=== PATIENT | male | born 1960 | race Caucasian/White ===

== ENCOUNTER → 2021-06-24 13:18 | Outpatient (BNVA) | payer MEDICARE, MEDICAID, SELFPAY | PROVIDERS: Family Provider Family Medicine; PCP Family Medicine; Visit Provider Urology | DX: R31.9 Hematuria, unspecified (principal); C67.9 Malignant neoplasm of bladder, unspecified; Z20.822 Contact with and (suspected) exposure to COVID-19 | CPT/HCPCS: 81003; 87635 ==

== ENCOUNTER 2021-06-30 14:30 | Observation (INO) | payer MEDICARE, MEDICAID, SELFPAY ==
[2021-06-29 15:13] VITALS: BMI 19.9
[2021-06-30] VITALS (22 sets, daily range): BP systolic 111–158; BP diastolic 67–114; PULSE 83–110; RESP 12–24; TEMP 36.4–37; O2SAT 90–100; BMI 19.9
--- NOTE | 2021-06-30 11:42 | ANES.PREANE2 ---
Pre-Anesthetic Assessment Pre-Anesthetic Assessment: Height/Weight: Height 1.75 m Weight 61.235 kg Temp Pulse Resp BP Pulse Ox 98.4 F 102 H 18 128/93 93 06/30/21 11:34 06/30/21 11:34 06/30/21 11:34 06/30/21 11:34 06/30/21 11:34 Preop Diagnosis: Newly diagnosed bladder cancer Proposed Procedure: Operation Date: 06/30/21 12:00 Proposed Procedures p Transurethral Resection Bladder Tumor 95187 C67.9(Not Applicable) - Efra Curran MD s Cystoscopy(Not Applicable) - Efra Curran MD Was Beta Raymond taken within 24 hours: N/A Was Clonidine taken within 24 hours: N/A Last intake: Intake Last Liquid Date 06/30/21 Last Liquid Time 09:00 Last Solid Date 06/30/21 Last Solid Time 00:00 Social: Social History: No alcohol and No tobacco Exam: Pre-Anes Outpt Exam: alert Airway: Submandibular: WNL Cervical ROM: WNL MP: 1 Pulmonary: Pulmonary: None reported CV/HEM: CV/HEM: None reported : : None reported Hepatic: Hepatic: None reported GI: GI: None reported Metabolic: Metabolic: None reported Musc/skel: Musc/skel: None reported Neuropsych: Comments: Hx brain tumor Anesthetic Plan: ASA status: 2 Anesthesia: General Risk of > 500 ml blood loss (7ml/kg in children): No PFSH Anesthesia PFSH: Medical History Anxiety Bladder tumor Glioma of brain Hematuria History of brain tumor Seizure Surgical History History of hernia surgery History of removal of cyst Family History Father , AT AGE 82 , sudden, cause unknown Mother , IN LATE 70'S Stroke Social History Smoking and tobacco status: former smoker Alcohol intake: never Marital status: Current occupational status: disabled History of recent travel: No Data Anesthesia Cardiac Studies: No Data to Display
[2021-06-30] MEDS: sodium chloride 0.9% 1,000 ML 30 ML IV ×2 (11:56→15:37)
--- NOTE | 2021-06-30 12:00 | P.HPUD_ITS ---
Surgery/Procedure H&P Update DATE OF PROCEDURE: June 30, 2021 DATE H&P PERFORMED: 06/23/21 H&P UPDATE INFORMATION: I have reviewed H&P completed within last 30 days, I have examined patient prior to procedure, No changes to prior documentation and H&P is in [facility] EMR on date indicated PREOP DIAGNOSIS: Newly diagnosed bladder cancer PLANNED PROCEDURE: Operation Date: 06/30/21 12:00 Proposed Procedures p Transurethral Resection Bladder Tumor 04643 C67.9(Not Applicable) - Efra Curran MD s Cystoscopy(Not Applicable) - Efra Curran MD
--- NOTE | 2021-06-30 12:04 | PM.OP ---
Operative Report Date of procedure: June 30, 2021 Pre-op Diagnosis: Newly diagnosed bladder cancer Post-op diagnosis: same Procedure Done: 1. Cystoscopy, transurethral section of bladder tumor large Pathology: bladder tumor resection specimens Surgeon: Magdy Anesthesia: General Estimated blood loss: <50 cc Urine output: Not measured Complications: None Findings: Large volume papillary. No identified sessile wide-based solid lesions. All tumor resected Condition: stable Disposition: PACU Brief History: Mr. Cruz is a very pleasant 60-year-old white male who I evaluated for the first time in my office on 06/23/2021 for reports of gross hematuria. A CT scan had been performed on 06/10/2021 that showed what appeared to be enhancing soft tissue densities within the bladder. Cystoscopy confirmed these to be papillary bladder lesions consistent with TCCA. Multiple areas were identified with the largest volume of the right lateral wall. Substantially >5 cm in total diameter. Admitted now for TURBT after detailed discussion of benefits risk potential complications alternatives perioperative limitations and expectations and long-term planning based on pathology report. Procedure: After routine preoperative 06/30/2021 where general anesthesia was administered without difficulty after appropriate timeout was performed, SCDs confirmed to be functioning, preoperative antibiotics administered, beta-kiki protocol confirmed. Prepped and draped in usual sterile fashion in dorsolithotomy position paying careful attention to avoiding pressure points. 21 Mosotho cystoscope with 30 degree lens was introduced into the urethra meatus and advanced into the bladder under videoscopy. The bladder was systematically examined with a 30 and 70 degree lenses. Urethra was then calibrated with [place] sounds and accommodated 30 Mosotho. 2% lidocaine jelly was instilled into the urethra and a well-lubricated 25 Mosotho continuous-flow resectoscope sheath with visual obturator in place was advanced into the bladder without difficulty. The gyrus bipolar system with super loop and button probe were utilized. Resection was begun on the right lateral wall after confirmation of adequate paralysis. Resection was conducted until all the tumor in that area was removed. Multiple other areas identified were resected. Did not involve ureteral orifices. Did not extend into the prostatic fossa. Button probe was utilized to obtain hemostasis and to fulgurate some of the more flat areas of suspicious mucosa. On final inspection all specimens were removed from the bladder via the Ellik evacuator and meticulous hemostasis was confirmed. Final, trigone and ureteral orifices was made. Hemostasis was good. No remaining chips in the bladder. Could not identify any residual tumor. Tolerated procedure well without complications and was awakened in the operating room and returned to the recovery room after placement of a 20 Mosotho three-way Larson catheter with 10 cc balloon. Low flow CBI with normal saline was initiated.
[2021-06-30] MEDS: levofloxacin-dextrose 5 % 500 MG/100 ML PREMIX 100 MG IV (12:06)
[2021-06-30] MEDS: lidocaine 2% Urojet 20 mL (12:33)
[2021-06-30 12:51] LABS: Basophils % 0.4 %; Eosinophils # 0.1 10^3/uL (0.0-0.8); Eosinophils % 0.7 %; Hematocrit 45.5 % (42.0-52.0); Hemoglobin 14.9 g/dL (11.7-16.6); Lymphocytes # 0.6 10^3/uL (0.8-4.8); Lymphocytes % 8.2 %; Mean Corpuscular HGB Conc 32.7 g/dL (30.0-36.0); Mean Corpuscular Hemoglobin 30.1 pg (28.0-34.0); Mean Corpuscular Volume 91.9 fl (80-94); Mean Platelet Volume 10.3 fL (7.4-10.4); Monocytes % 13.8 %; Neutrophils # 5.76 10^3/uL (1.8-7.7); Neutrophils % 76.6 %; Nucleated Red Blood Cells % 0 %; Platelet Count 240 10^3/cmm (130-400); Red Blood Count 4.95 10^6/uL (4.1-5.3); White Blood Count 7.5 10^3/uL (4.0-10.0)
[2021-06-30 13:25] LABS: Alanine Aminotransferase 10 U/L (0-41); Albumin Level 4.1 g/dL (3.5-5.2); Alkaline Phosphatase 113 IU/L (40-130); Anion Gap 13.9 (5-19); Aspartate Amino Transferase 11 U/L (0-40); Blood Urea Nitrogen 14 mg/dL (8-23); Calcium 9.3 mg/dL (8.5-10.5); Carbon Dioxide 30 mmol/L (22-29); Chloride 98 mmol/L (98-107); Glomerular Filtration Rate 169.6 mL/min (90-130); Glucose 85 mg/dL (65-115); Osmolality Calculated 286 mOsm/kg (285-295); Potassium 3.9 mmol/L (3.5-5.1); Sodium 138 mmol/L (136-145); Total Bilirubin 0.4 mg/dL (0.15-1.2); Total Protein 7.1 g/dL (6.6-8.7)
[2021-06-30 13:28] LABS: Creatinine Clr Calc Pharmacy 148.6978
[2021-06-30] MEDS: fentaNYL 50 mcg/mL INJ 2mL IVP (13:53)
[2021-06-30] MEDS: HYDROcodone-acetaminophen 5-325 mg Tablet 1 TAB PO (15:36)
[2021-06-30] MEDS: morphine 4 mg/mL SDV 1 mL 1 MG IVP (20:04)
[2021-06-30] MEDS: LORazepam 1 mg Tablet PO (20:04)
[2021-06-30] MEDS: levETIRAcetam 500 mg Tablet 1500 MG PO (21:26)
[2021-06-30] MEDS: carBAMazepine XR (12 HR) 200 mg Tablet PO (21:26)
[2021-07-01 01:27] VITALS: RESP 16
[2021-07-01] MEDS: morphine 4 mg/mL SDV 1 mL 1 MG IVP (01:27)
[2021-07-01 03:50] VITALS: BP 113/72; PULSE 100; RESP 16; TEMP 37.2; O2SAT 92
[2021-07-01 07:49] VITALS: BP 112/76; PULSE 94; RESP 18; TEMP 37.1; O2SAT 94
[2021-07-01] MEDS: carBAMazepine XR (12 HR) 200 mg Tablet PO (09:08)
[2021-07-01] MEDS: levETIRAcetam 500 mg Tablet 1500 MG PO (09:09)
--- NOTE | 2021-07-01 09:20 | PC.NURSE ---
Mytomycin drained and disposed of in black box. Educated pt on leg bag and night bag. All questions answered. No further needs at this time.
--- NOTE | 2021-07-01 09:41 | PC.CHAP ---
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 internship visit [] Patient/Family/Request visit [] Outpatient visit [] Follow-up visit [] Physician referral [] Code/Alert [x] Routine visit [] Staff referral [] Actively dying [] Patient sleeping [] Family support [] [] Out of room [] Palliative care [] [] Receiving care in room [] Pre-surgical visit [] Trauma [] Long length of stay [] ICU visit [] Other: Relational/Emotional Strength [x] Patient feels connected with others/family/visitors/staff [] Distress [] Loneliness/isolation [] Abandonment Spirituality of Patient [x] Person of Saige [x] Attends Jew of their Saige [x] Believes in Prayer [] Reads Bible or Mormon materials [] There are Spiritual issues to be addressed Stock Grader Interventions [x] Prayer [x] Active listening [x] Non-anxious presence [x] Spiritual/emotional support [] Crisis/trauma care [] Spiritual counseling [] Bereavement support [] Provided bereavement packet [] Provided Bible/devotional materials [] Provided toy/stuffed animal, coloring book to patient or family member [] Provided Communion [] Anointing/[place] [] Salvation [x] Completed spiritual assessment [] Other: Impact on Illness or Injury [] Angry [] Fearful [] Anxious [] Often cries [] Exhaustion [] Unable to work [] Unable to attend uatsdin [] Unable to walk/stand [] Unable to read [] Unable to drive [] Unable to eat/drink [] Unable to sleep [] Unable to be with family [] Patient intubated [] Other: Summary Time spent with patient 20 min
[2021-07-01 12:02] VITALS: BP 121/84; PULSE 98; RESP 16; TEMP 36.8; O2SAT 92
--- NOTE | 2021-07-01 12:49 | P.DS_ITS ---
Discharge Providers Date of Admission: 06/30/21 14:30 Date of Discharge: July 01, 2021 Attending Provider at Admission: Efra Curran MD Attending Provider at Discharge: Efra Curran MD Primary Care Provider: Nichole Alejandro MD Diagnoses at Discharge Discharge Diagnosis (1) Bladder cancer: Status: Acute Qualifiers: Bladder location: overlapping sites Qualified Code(s): C67.8 - Malignant neoplasm of overlapping sites of bladder (2) Anxiety: Status: Acute Reason for Visit Reason for Visit: Malignant neoplas of bladder Hospital Course Hospital Course Admitted on 06/30/2021 for TURBT of multiple areas positive for bladder cancer on outpatient cystoscopy. Procedure went well. He had multiple areas both lateral blackman, posterior floor, dome with bladder cancer lesions. Final path is pending at time of dictation. Larson catheter was left indwelling postop and he underwent MITOMYCIN INTRAVE SICAL INSTILLATION on postop day #1 uneventfully. Catheter was left indwelling and he was discharged after confirmation of no bleeding and good catheter function confirmed on postop day #1 afternoon. Plan was to remove the catheter on Sunday the Hopefully pathology will be available by that time or soon thereafter. Will need cystoscopy in the near future to assess adequacy of complete resec tion. Has a pretty good chance that there will be some residual tumor that just was not easily identifiable given the very large volume of tumor. Discharged in stable condition. Physical Exam Const: COMMON NORMALS: no acute distress, alert and well nourished GENERAL APPEARANCE: well kempt and well developed ORIENTATION/CONSCIOUSNESS: not confused HENMT: COMMON NORMALS: normocephalic and atraumatic HEAD & SCALP: normocephalic and atraumatic Eye: COMMON NORMALS: conjunctivae normal and no scleral icterus CONJUNCTIVA: Yes conjunctivae normal Neck/C-Spine: COMMON NORMALS: full ROM GENERAL: Yes normal visual inspection Resp: COMMON NORMALS: normal respiratory effort EFFORT & INSPECTION: No labored and No Actively coughing : OTHER: Normal exam. Urine is clear. Catheter in place. Minimal amount of blood around the catheter Neuro: SENSORIUM/ORIENTATION: Yes alert Psych: APPEARANCE: Yes grossly normal and Yes well kempt ATTITUDE: Yes calm and Yes engaged Skin: COMMON NORMALS: no rashes or lesions noted and no jaundice GENERAL SKIN EXAM: no rashes or lesions noted Urinary Catheter Management^: 3-way Urethral CBI: Cath Placed During This Visit: yes Reason for Continuing Indwelling Catheter: Accurate Measurement of Urinary Output in Critically Ill Patients Urinary Catheter Date of Insertion: 06/30/21 Urinary Catheter Time of Insertion: 13:25 Discharge Data Data Completed and Pending: Pending at discharge Category Date Time Status Pathology: Surgic al [PTH] Routine Pth 06/30/21 13:30 Received Labs from last 24 hours 06/30/21 06/30/21 11:45 11:45 WBC 7.5 RBC 4.95 Hgb 14.9 Hct 45.5 MCV 91.9 MCH 30.1 MCHC 32.7 RDW 14.0 Plt Count 240 MPV 10.3 Neut % (Auto) 76.6 Lymph % (Auto) 8.2 [place] % (Auto) 13.8 Eos % (Auto) 0.7 Baso % (Auto) 0.4 Neut # (Auto) 5.76 Lymph # (Auto) 0.6 L [place] # (Auto) 1.0 H Eos # (Auto) 0.1 Baso # (Auto) 0.0 Nucleated RBC % (a uto) 0 Nucleated RBCs # 0.0 Sodium 138 Potassium 3.9 Chloride 98 Carbon Dioxide 30 H Anion Gap 13.9 BUN 14 Creatinine 0.5 L GFR Calculation 169.6 H Glucose 85 Calculated Osmolal ity 286 Calcium 9.3 Total Bilirubin 0.4 AST 11 ALT 10 Alkaline Phosphata se 113 Total Protein 7.1 Albumin 4.1 Globulin 3.0 Vitals: Last Vital Signs Temp 98.3 F 07/01/21 12:02 Pulse 98 07/01/21 12:02 Resp 16 07/01/21 12:02 BP 121/84 07/01/21 12:02 Pulse Ox 92 07/01/21 12:02 Discharge Plan Discharge Patient Disposition: Home Condition: Stable Prescriptions: New hydrocodone-acetaminophen 5-325 mg Tablet 1 tab PO Q6H PRN (Reason: Moderate Pain) 3 Days Qty: 12 RF: 0 Continued levetiracetam [Keppra] 1,000 mg tablet 1,500 mg PO BID RF: 0 carbamazepine 200 mg tablet extended release 12 hr 200 mg PO BID RF: 0 lorazepam 1 mg tablet 1 mg PO BID PRN (Reason: Anxiety) RF: 0 Discharge Orders: Discharge Order (Routine); Ordered 07/01/21 Ordered By: Efra Curran Referrals: Efra Curran MD [Physician] - 07/04/21 7:30 am (You have an appointment with Dr. Curran on July 04 at 7:30 for a voiding trial.) Discharge Diet: Usual diet Discharge Activity: Limit activity as instructed Patient Instructions: Hydrocodone/Acetaminophen (By mouth) (Vicodin, Aulander, Lortab), Urinary Leg Bag (GEN), Transurethral Resection of Bladder Tumors (DC), Opioid Safety Activity Restrictions/Additional Instructions: Avoid lifting >10 pounds. We will plan on removing the catheter on Sunday in my office. Please do not pull the catheter out. There is a large balloon on the inside that would do damage if you forcibly removed it. Drink more fluids to keep the urine clear. Discharge Attestations Time Spent in Discharge Care*: less than 30 min Specific Discharge Activities: educating patient, documenting/other paperwork and evaluating patient/reviewing data Quality Metrics Clinical Quality Measures During this hospital stay, did patient experience: None Coding Level of Care Code Acute Chg FW DC note Exam Detailed Diagnoses Bladder cancer C67.8 Bladder location: overlapping sites Anxiety F41.9
[2021-07-01 15:10] VITALS: BP 121/84; PULSE 98; RESP 16; TEMP 36.8; O2SAT 92
== END 2021-07-01 14:20 | disposition home or self-care (01) ==
LOC: MEDSURG 14:31
PROVIDERS: Admitting Provider Urology; PCP Family Medicine; Visit Provider Urology
PROC: 0TBB8ZZ Excision of Bladder, Via Natural or Artificial Opening Endoscopic (ICD-10-PCS; CPT 52240; principal; 2021-06-30 12:00)
PROC: 0TJB8ZZ Inspection of Bladder, Via Natural or Artificial Opening Endoscopic (ICD-10-PCS; CPT 52000; 2021-06-30 12:00)
DX: C67.2 Malignant neoplasm of lateral wall of bladder (principal); C67.4 Malignant neoplasm of posterior wall of bladder; C67.1 Malignant neoplasm of dome of bladder; F41.9 Anxiety disorder, unspecified; Z87.891 Personal history of nicotine dependence
CPT/HCPCS: 52240; 51720; 80053; 85025; 88305; 88307; G0378; J1100; J1956; J2270; J2405; J2704; J2710; J3010; J3490; J7030; J9280

== ENCOUNTER → 2021-07-29 10:55 | Outpatient (BNVA) | payer MEDICARE, MEDICAID, SELFPAY | PROVIDERS: PCP Family Medicine; Visit Provider Urology | DX: C67.8 Malignant neoplasm of overlapping sites of bladder (principal); Z87.898 Personal history of other specified conditions; Z20.822 Contact with and (suspected) exposure to COVID-19 | CPT/HCPCS: 81003; 87635 ==

== ENCOUNTER 2021-08-04 18:57 | Observation (INO) | payer MEDICARE, MEDICAID, SELFPAY ==
[2021-08-03 13:26] VITALS: BMI 19.2
[2021-08-04] VITALS (8 sets, daily range): BP systolic 117–160; BP diastolic 90–114; PULSE 79–111; RESP 12–19; TEMP 36.3–37.1; O2SAT 92–99
--- NOTE | 2021-08-04 13:23 | ANES.PREANE2 ---
Pre-Anesthetic Assessment Pre-Anesthetic Assessment: Height/Weight: Height 1.75 m Weight 58.967 kg Temp Pulse Resp BP Pulse Ox 98 F 110 H 18 153/90 92 08/04/21 13:15 08/04/21 13:15 08/04/21 13:15 08/04/21 13:15 08/04/21 13:15 Preop Diagnosis: Bladder cancer Proposed Procedure: Operation Date: 08/04/21 14:15 Proposed Procedures p Transurethral Resection Bladder Tumor 38091 C67.9(Not Applicable) - Efra Curran MD s Cystoscopy(Not Applicable) - Efra Curran MD Was Beta Raymond taken within 24 hours: N/A Was Clonidine taken within 24 hours: N/A Last intake: Intake Last Liquid Date 08/04/21 Last Liquid Time 09:00 Last Solid Date 08/03/21 Last Solid Time 22:00 Social: Social History: No alcohol Exam: Pre-Anes Outpt Exam: alert and oriented x 3 Additional Exam Findings (including area of procedure): Markedly Diminished BS with prolonged/active exp phase Airway: Submandibular: WNL Cervical ROM: WNL MP: 1 Dentition: False Pulmonary: Pulmonary: COPD CV/HEM: CV/HEM: None reported : : None reported Hepatic: Hepatic: None reported GI: GI: None reported Metabolic: Metabolic: None reported Musc/skel: Musc/skel: Lower Back Pain and OA/DJD Neuropsych: Neuropsych: Seizure (None since 2012) Comments: History of benign brain tumor Anesthetic Plan: ASA status: 3 Anesthesia: General PFSH Anesthesia PFSH: Medical History Anxiety Bladder cancer Glioma of brain History of brain tumor Seizure Surgical History H/O transurethral destruction of bladder lesion History of hernia surgery History of removal of cyst Family History Father , AT AGE 82 , sudden, cause unknown Mother , IN LATE 70'S Stroke Social History Alcohol intake: never Marital status: Current occupational status: disabled History of recent travel: No Data Anesthesia Cardiac Studies: No Data to Display
[2021-08-04] MEDS: sodium chloride 0.9% 1,000 ML 30 ML IV (13:38)
[2021-08-04] MEDS: levofloxacin-dextrose 5 % 500 MG/100 ML PREMIX 100 MG IV (17:35)
--- NOTE | 2021-08-04 17:37 | P.HPUD_ITS ---
Surgery/Procedure H&P Update DATE OF PROCEDURE: August 04, 2021 DATE H&P PERFORMED: 07/28/21 H&P UPDATE INFORMATION: I have reviewed H&P completed within last 30 days, I have examined patient prior to procedure, No changes to prior documentation and H&P is in [facility] EMR on date indicated PREOP DIAGNOSIS: Bladder cancer PLANNED PROCEDURE: Operation Date: 08/04/21 14:15 Proposed Procedures p Transurethral Resection Bladder Tumor 57547 C67.9(Not Applicable) - Efra Curran MD s Cystoscopy(Not Applicable) - Efra Curran MD
[2021-08-04] MEDS: lidocaine 2% Urojet 20 mL TOPICAL (18:01)
--- NOTE | 2021-08-04 18:29 | P.OP_ITS ---
Operative Report Date of procedure: August 04, 2021 Pre-op Diagnosis: High-grade lamina propria invasive bladder cancer Post-op diagnosis: same Post-op Findings: A few small papillary tumors identified and resected/fulgurated. Deeper sampling taken at previous resection site. Procedure Done: 1. Cystoscopy, transurethral section of bladder tumor large (aggregate resection/vaporization >5 cm) Pathology: Sampling of multiple sites in the bladder. Deeper resections of previous TURBT sites. Surgeon: Magdy Anesthesia: General Estimated blood loss: Minimal Complications: None Findings: There were multiple areas of suspicious mucosa as described in the operative report. Areas of previous resection were more deeply resected into the bladder wall to confirm no evidence of residual disease penetrating into the bladder wall. Condition: stable Disposition: PACU Brief History: Mr. Cruz is a very pleasant 60-year-old white male recently diagnosed with bladder cancer. He had multiple areas involved in and underwent a large-volume TURBT. None of the tumors were significantly large protruding into the intravesical space but the coverage of the bladder wall was significant at >5 cm. There was also a couple areas near diverticuli that were suspicious. Because of the pathology demonstrating high-grade lamina propria invasive disease without clear evidence of muscle it was decided to restage him to c onfirm no under staging of the first resection. He is back now for that procedure. Procedure: After routine preoperative evaluation examination and obtaining of informed consent he was taken to the operating suite on 08/04/2021 where general anesthesia was administered without difficulty after appropriate timeout was performed, SCDs confirmed to be functioning, preoperative antibiotics administered, beta-kiki protocol confirmed. Prepped and draped in usual sterile fashion in dorsolithotomy position paying careful attention to avoiding pressure points. 21 Panamanian cystoscope with 30 degree lens was introduced into the urethral meatus and advanced into the bladder to videoscopy. The bladder was systematically examined. The previous resection site areas with sloughing of tissue were identified. There was a couple small papillary tumors near the left lateral wall bladder diverticulum. There was also some suspicious areas lateral to the left ureteral orifice. Super loop was utilized first after placement of the 25 [place] continuous-flow resectoscope sheath preceded by [place] sound calibration and intraluminal 2% lidocaine jelly instillation. [place] bipolar system was utilized. The areas of sloughing necrotic tissue on the right lateral wall were scraped bluntly with the super loop. This exposed the underlying tissue and multiple resections deep into the bladder wall were performed in this area. The button probe was then utilized to fulgurate this area and an area of approximately 5- 1/2 cm was involved in this fulguration and resection combined. Near one of the diverticuli on the lateral wall more proximally/dome located there was a small papillary tumor on the opening and this was resected as well and sent for pat hologic evaluation. The button probe was utilized to fulgurate the inside of the diverticulum. There was not clear as to whether or not there was a definitive TCCA lesion in the diverticulum but there was some areas that were suspicious. Just lateral to the left ureteral orifice was a suspicious area that was resected. A couple of other papillary lesions of less clarity were also resected on the left lateral bladder wall. The button probe was utilized to confirm adequate hemostasis. All chips were evacuated from the bladder with an Ellik evacuator. Hemostasis was visually confirmed and the bladder was then drained with a 20 [place]ian three-way Larson catheter. The efflux was clear and irrigation revealed no evidence of bleeding. Tolerated procedure well without complications and was awakened in the operating room and returned to the recovery room in stable condition. PLANS: 1. Maintain observation status overnight with anticipated discharge tomorrow with Larson catheter in place. 2. Mitomycin instillation tomorrow
[2021-08-04] MEDS: ondansetron 2 mg/ML SDV 2 mL 4 MG IVP (18:44)
[2021-08-04] MEDS: labetalol 5 mg/mL SDV 20mL IVP (18:45)
--- NOTE | 2021-08-04 19:02 | PC.NURSE ---
Ready to give report to the floor at 1853. Waited on hold for 10 min before hanging up to call again.
--- NOTE | 2021-08-04 19:56 | ANE.PACU2 ---
Inpatient post-anesthesia follow up: Airway intact: Yes Vital signs: Temperature 97.3 F Pulse Rate 79 Respiratory Rate 12 Blood Pressure 149/98 Pulse Oximetry 99 Oxygen Delivery Me thod Room Air Oxygen Flow Rate Fraction of Inspir ed Oxygen Hydration adequate: Yes Nausea and vomiting: No Pain level: 3 Mental status: Baseline
[2021-08-04] MEDS: carBAMazepine XR (12 HR) 200 mg Tablet PO (21:10)
[2021-08-04] MEDS: levETIRAcetam 500 mg Tablet 1500 MG PO (21:11)
[2021-08-04] MEDS: LORazepam 1 mg Tablet PO (21:11)
[2021-08-04] MEDS: dextrose 5%-ns + KCl 20 20 MEQ/1,000 ML BAG 75 MEQ IV (21:11)
[2021-08-05 02:41] VITALS: BP 109/74; PULSE 98; RESP 19; TEMP 36.7; O2SAT 92
[2021-08-05 04:00] VITALS: BP 115/74; PULSE 93; RESP 19; TEMP 36.7; O2SAT 90
--- NOTE | 2021-08-05 07:39 | PM.MISC ---
Miscellaneous Note Purpose of Documentation: MITOMYCIN INTRAVESICAL INSTILLATION Note: Postoperative day #1 TURBT. 40 mg of mitomycin and 40 cc normal saline instilled into the bladder under low pressure. His drainage port on his three-way Larson catheter. Irrigation Drainage port was plugged. Plan: 1. Drain mitomycin after 1 hour or sooner if becomes uncomfortable 2. 6 bottle void and bladder scan to confirm adequate emptying and no significant bleeding post catheter removal as well discharged today.
--- NOTE | 2021-08-05 07:45 | PM.DCS ---
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 Procedure went well. He had a few small residual tumors that were resected or fulgurated completely. There was some involvement of a right bladder wall diverticulum more toward the dome. Also had another diverticulum that was not involved more distally. Deep resection was performed in the area of previous bladder tumor larger volume. Aggregate >5 cm of multiple bladder tumors resected. Postoperatively he did well. Mitomycin was instilled into the bladder on postoperative day #1 and drained appropriately. Successful voiding trial with safe/adequate emptying after catheter removal post mitomycin drainage. Encouraged him to self cath at home if there is any question about emptying. He has done this before and was familiar and comfortable with it. Emphasis was placed on not allowing his bladder to become over distended. Plan was to follow-up in 1 month for initiation of BCG induction therapy, 6 weeks. Phone call recommended for 1 week to review the pathology report. Physical Exam Const: GENERAL APPEARANCE: well kempt Resp: COMMON NORMALS: normal respiratory effort EFFORT & INSPECTION: No labored and No Actively coughing GI: COMMON NORMALS: Soft to palpation and non-tender PALPATION: Yes Soft to palpation and No Tenderness to palpation present (GI) RECTAL EXAM: Yes visual inspection normal, Yes normal sphincter tone, Yes prostate normal, No prostate abnormal and No mass : PENIS: normal penis MEATUS: meatus normal, no meatla discharge and No Blood at meatus present SCROTUM: Yes testes descended bilaterally Psych: COMMON NORMALS: mental status grossly normal APPEARANCE: Yes grossly normal and Yes well kempt ATTITUDE: Yes calm and Yes engaged Urinary Catheter Management^: 3-way Urethral CBI: Cath Placed During This Visit: yes Urinary Catheter Date of Insertion: 08/04/21 Urinary Catheter Time of Insertion: 18:23 Discharge Data Data Completed and Pending: Pending at discharge Category Date Time Status Pathology: Surgic al [PTH] Routine Pth 08/04/21 18:41 Ordered Vitals: Last Vital Signs Temp 98.1 F 08/05/21 04:00 Pulse 93 08/05/21 04:00 Resp 19 H 08/05/21 04:00 BP 115/74 08/05/21 04:00 Pulse Ox 90 08/05/21 04:00 Discharge Plan Discharge Patient Disposition: Home Condition: Stable Prescriptions: Continued levetiracetam [Keppra] 1,000 mg tablet 1,500 mg PO BID RF: 0 carbamazepine 200 mg tablet extended release 12 hr 200 mg PO BID RF: 0 lorazepam 1 mg tablet 1 mg PO BID PRN (Reason: Anxiety) RF: 0 acetaminophen [Tylenol Extra Strength] 500 mg tablet 500 mg PO Q6H PRN (Reason: pain) RF: 0 Discharge Orders: Discharge Order (Routine); Ordered 08/05/21 Ordered By: Efra Curran Referrals: Efra Curran MD [Physician] - 09/09/21 10:30 am (BCG induction #1) Discharge Diet: Usual diet Discharge Activity: Limit activity as instructed Patient Instructions: Larson Catheter Care, Urinary Leg Bag (GEN), Transurethral Resection of Bladder Tumors (GEN), Opioid Safety Activity Restrictions/Additional Instructions: 1. Avoid lifting >10 pounds x 3 to 4 weeks. 2. We will plan on beginning BCG treatment in approximately 1 month assuming the pathology supports that. 3. We need to communicate over the phone in roughly 1 week about the pathology report to make final plans. 4. You can catheterize yourself at home if you have difficulty voiding. Please avoid over distention of the bladder. That can be very dangerous. Discharge Attestations Time Spent in Discharge Care*: greater than 30 min Specific Discharge Activities: educating patient, documenting/other paperwork and evaluating patient/reviewing data Quality Metrics Clinical Quality Measures During this hospital stay, did patient experience: None Coding Level of Care Code Acute Chg FW DC note Exam Detailed
[2021-08-05 08:12] VITALS: BP 129/86; PULSE 87; RESP 18; TEMP 36.9; O2SAT 91
--- NOTE | 2021-08-05 08:14 | PC.NURSE ---
Larson catheter discontinued at 0810 per orders with no complications. Beginning 6 void trial. Pt educated to call when he feels the urge to urinate.
[2021-08-05] MEDS: levETIRAcetam 500 mg Tablet 1500 MG PO (08:16)
[2021-08-05 11:51] VITALS: BP 120/83; PULSE 92; RESP 18; TEMP 36.7; O2SAT 92
[2021-08-05] MEDS: carBAMazepine XR (12 HR) 200 mg Tablet PO (13:48)
--- NOTE | 2021-08-05 14:28 | PC.CHAP ---
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 pollution control technician visit [] Patient/Family/Request visit [] Outpatient visit [] Follow-up visit [] Physician referral [] Code/Alert [xx] Routine visit [] Staff referral [] Actively dying [] Patient sleeping [] Family support [] [] Out of room [] Palliative care [] [] Receiving care in room [] Pre-surgical visit [] Trauma [] Long length of stay [] ICU visit [] Other: Relational/Emotional Strength [xx] Patient feels connected with others/family/visitors/staff [] Distress [] Loneliness/isolation [] Abandonment Spirituality of Patient [] Person of Saige [] Attends Quaker of their Saige [xx] Believes in Prayer [xx] Reads Bible or Congregation materials [] There are Spiritual issues to be addressed Fast Food Shift Lead Interventions [xx] Prayer [xx] Active listening [xx] Non-anxious presence [] Spiritual/emotional support [] Crisis/trauma care [] Spiritual counseling [] Bereavement support [] Provided bereavement packet [] Provided Bible/devotional materials [] Provided toy/stuffed animal, coloring book to patient or family member [] Provided Communion [] Anointing/[place] [] Salvation [xx] Completed spiritual assessment [] Other: Impact on Illness or Injury [] Angry [] Fearful [] Anxious [] Often cries [] Exhaustion [] Unable to work [] Unable to attend scientology [] Unable to walk/stand [] Unable to read [] Unable to drive [] Unable to eat/drink [] Unable to sleep [] Unable to be with family [] Patient intubated [] Other: Summary Patient stated he has numerous cancerous spots in h is body he is dealing with but he is very positive and joyful that he is still alive and able to function properly. He has a of nearly 40 years, children and a 10 month old grandson to live for and his saige keeps him going. He had much to say about his family and how much they all love and support each other. Time spent with patient 10 minutes
--- NOTE | 2021-08-05 15:31 | PC.NURSE ---
Dr. Curran notified on patients results on 6 void trial. Orders received to DC patient but instruct to not wait until being unable to void becomes uncomfortable- to self catheterize.
[2021-08-05 15:46] VITALS: BP 127/86; PULSE 118; RESP 18; TEMP 36.8; O2SAT 91
[2021-08-05] MEDS: LORazepam 1 mg Tablet PO (16:14)
== END 2021-08-05 19:00 | disposition home or self-care (01) ==
LOC: MEDSURG 08-05 07:45
PROVIDERS: Admitting Provider Urology; PCP Family Medicine; Visit Provider Urology
PROC: 0TBB8ZZ Excision of Bladder, Via Natural or Artificial Opening Endoscopic (ICD-10-PCS; CPT 52240; principal; 2021-08-04 14:05)
PROC: 0TJB8ZZ Inspection of Bladder, Via Natural or Artificial Opening Endoscopic (ICD-10-PCS; CPT 52000; 2021-08-04 14:05)
DX: C67.9 Malignant neoplasm of bladder, unspecified (principal); J44.9 Chronic obstructive pulmonary disease, unspecified; F41.9 Anxiety disorder, unspecified; Z87.898 Personal history of other specified conditions
CPT/HCPCS: 52240; 51720; 88309; G0378; J1956; J2405; J2704; J2710; J3010; J3490; J7030

== ENCOUNTER → 2021-09-07 15:30 | Outpatient (BNVA) | payer MEDICARE, MEDICAID, SELFPAY | PROVIDERS: PCP Family Medicine; Visit Provider Urology | DX: C67.8 Malignant neoplasm of overlapping sites of bladder (principal) | CPT/HCPCS: 81003 ==

== ENCOUNTER → 2021-09-16 10:37 | Outpatient (BNVA) | payer MEDICARE, MEDICAID, SELFPAY | PROVIDERS: PCP Family Medicine; Visit Provider Urology | DX: C67.8 Malignant neoplasm of overlapping sites of bladder (principal) | CPT/HCPCS: 81003 ==

== ENCOUNTER → 2021-09-23 10:55 | Outpatient (BNVA) | payer MEDICARE, MEDICAID, SELFPAY | PROVIDERS: PCP Family Medicine; Visit Provider Urology | DX: C67.9 Malignant neoplasm of bladder, unspecified (principal) | CPT/HCPCS: 81003 ==

== ENCOUNTER → 2021-10-06 15:40 | Outpatient (BNVA) | payer MEDICARE, MEDICAID, SELFPAY | PROVIDERS: PCP Family Medicine; Visit Provider Urology | DX: C67.9 Malignant neoplasm of bladder, unspecified (principal) | CPT/HCPCS: 81003 ==

== ENCOUNTER → 2021-10-27 15:43 | Outpatient (BNVA) | payer MEDICARE, MEDICAID, SELFPAY | PROVIDERS: PCP Family Medicine; Visit Provider Urology | DX: C67.9 Malignant neoplasm of bladder, unspecified (principal) | CPT/HCPCS: 81003 ==

== ENCOUNTER → 2021-11-03 15:26 | Outpatient (BNVA) | payer MEDICARE, MEDICAID, SELFPAY | PROVIDERS: PCP Family Medicine; Visit Provider Urology | DX: C67.9 Malignant neoplasm of bladder, unspecified (principal); N99.112 Postprocedural membranous urethral stricture, male; C67.8 Malignant neoplasm of overlapping sites of bladder | CPT/HCPCS: 81003 ==

== ENCOUNTER → 2021-12-16 08:20 | Outpatient (BNVA) | payer MEDICARE, MEDICAID, SELFPAY | PROVIDERS: PCP Family Medicine; Visit Provider Urology | DX: C67.8 Malignant neoplasm of overlapping sites of bladder (principal) | CPT/HCPCS: 81003 ==

== ENCOUNTER → 2022-02-02 15:21 | Outpatient (BNVA) | payer MEDICARE, MEDICAID, SELFPAY | PROVIDERS: PCP Family Medicine; Visit Provider Nurse Practitioner Family | DX: C67.9 Malignant neoplasm of bladder, unspecified (principal); C67.8 Malignant neoplasm of overlapping sites of bladder | CPT/HCPCS: 51720; 81003; J9030 ==

== ENCOUNTER → 2022-02-09 15:34 | Outpatient (BNVA) | payer MEDICARE, MEDICAID, SELFPAY | PROVIDERS: PCP Family Medicine; Visit Provider Urology | DX: C67.8 Malignant neoplasm of overlapping sites of bladder (principal) | CPT/HCPCS: 51720; 81003; J9030 ==

== ENCOUNTER → 2022-02-16 15:47 | Outpatient (BNVA) | payer MEDICARE, MEDICAID, SELFPAY | PROVIDERS: PCP Family Medicine; Visit Provider Urology | DX: C67.8 Malignant neoplasm of overlapping sites of bladder (principal) | CPT/HCPCS: 51720; 81003; J9030 ==

== ENCOUNTER → 2022-02-21 11:33 | Outpatient (BNVA) | payer MEDICARE, MEDICAID, SELFPAY | PROVIDERS: PCP Family Medicine; Visit Provider Nurse Practitioner Family | DX: N64.4 Mastodynia (principal); Z13.6 Encounter for screening for cardiovascular disorders; F41.9 Anxiety disorder, unspecified | CPT/HCPCS: 80053; 80061; 84443; 85025 ==

== ENCOUNTER 2022-03-16 12:07 | Outpatient (CLI) | payer MEDICARE, MEDICAID, SELFPAY ==
--- NOTE | 2022-03-16 12:22 | MM_ITS ---
WS: [id number] DIAGNOSTIC BILATERAL DIGITAL BREAST TOMOSYNTHESIS MAMMOGRAPHY WITH CAD HISTORY: MASTODYNIA, pain and discomfort upper outer quadrant LEFT breast. No pain associated to the nipples. COMPARISON: None available. TECHNIQUE: Bilateral craniocaudad, mediolateral oblique, and mediolateral views are submitted with to moslilia and CHRIS. Computer aided detection utilized. Breast composition: Subareolar areas of increased density consistent with gynecomastia. Pain does not localize to the gynecomastia. Marker is placed in the upper outer quadrant of the LEFT breast toward s the axillary tail. There is no underlying mass. No distortion. No skin thickening. LEFT breast ultrasound, limited. Ultrasound along the 12-3 o'clock axis demonstrates no abnormality. Normal appearance to the soft tis sues. No skin thickening. MM/[place] [id number] IMPRESSION: BI-RADS: 2-Benign FOLLOW UP: See Report No mammographic or ultrasound abnormality to correspond to the pain in the uppe r outer quadrant of the LEFT breast.
== END 2022-03-16 12:08 | disposition home or self-care (01) ==
LOC: RAD 12:09
PROVIDERS: PCP Family Medicine; Visit Provider Nurse Practitioner Family
DX: N64.4 Mastodynia (principal)
CPT/HCPCS: 76642; 77062

== ENCOUNTER → 2022-04-03 14:46 | Outpatient (BNVA) | payer MEDICARE, MEDICAID, SELFPAY | PROVIDERS: PCP Family Medicine; Visit Provider Urology | DX: C67.8 Malignant neoplasm of overlapping sites of bladder (principal) | CPT/HCPCS: 52000; 81003 ==

== ENCOUNTER → 2022-07-06 14:25 | Outpatient (BNVA) | payer MEDICARE, MEDICAID, SELFPAY | PROVIDERS: PCP Family Medicine; Visit Provider Urology | DX: C67.8 Malignant neoplasm of overlapping sites of bladder (principal) | CPT/HCPCS: 52000; 81003 ==

== ENCOUNTER → 2022-10-05 13:03 | Outpatient (BNVA) | payer MEDICARE, MEDICAID, SELFPAY | PROVIDERS: PCP Family Medicine; Visit Provider Urology | DX: C67.8 Malignant neoplasm of overlapping sites of bladder (principal) | CPT/HCPCS: 52000; 81003; 88112 ==

== ENCOUNTER → 2022-10-13 10:15 | Outpatient (BNVA) | payer MEDICARE, MEDICAID, SELFPAY | PROVIDERS: PCP Family Medicine; Visit Provider Family Medicine | DX: C67.8 Malignant neoplasm of overlapping sites of bladder (principal); R63.4 Abnormal weight loss; F41.9 Anxiety disorder, unspecified; R73.9 Hyperglycemia, unspecified; C67.9 Malignant neoplasm of bladder, unspecified | CPT/HCPCS: 80053; 82607; 83036; 84443; 85025 ==

== ENCOUNTER → 2023-02-13 11:37 | Outpatient (BNVA) | payer MEDICARE, MEDICAID, SELFPAY | PROVIDERS: PCP Family Medicine; Visit Provider Urology | DX: C67.9 Malignant neoplasm of bladder, unspecified (principal) | CPT/HCPCS: 52000; 81003 ==

== ENCOUNTER → 2023-06-06 08:30 | Outpatient (BNVA) | payer MEDICARE, MEDICAID, SELFPAY | PROVIDERS: PCP Family Medicine; Visit Provider Urology | DX: D44.10 Neoplasm of uncertain behavior of unspecified adrenal gland (principal); C67.9 Malignant neoplasm of bladder, unspecified | CPT/HCPCS: 82533; 83835 ==

== ENCOUNTER → 2023-08-16 10:05 | Outpatient (BNVA) | payer MEDICARE, MEDICAID, SELFPAY | PROVIDERS: PCP Family Medicine; Referring Provider Family Medicine; Visit Provider Internal Medicine Pulmonary Disease | DX: J44.9 Chronic obstructive pulmonary disease, unspecified (principal); Z87.891 Personal history of nicotine dependence; Z78.9 Other specified health status; Z12.2 Encounter for screening for malignant neoplasm of respiratory organs | CPT/HCPCS: 99204 ==

== ENCOUNTER 2023-09-05 07:54 | Outpatient (CLI) | payer MEDICARE, MEDICAID, SELFPAY ==
--- NOTE | 2023-09-05 08:03 | CT_ITS ---
WS: [id number] LDCT LUNG CANCER SCREENING TECHNIQUE: Noncontrast CT of the chest with coronal and sagittal reformatted images. CLINICAL INFORMATION: NICOTINE DEPENDENCE COMPARISON: None. DLP: 50.90 mGy.cm DIvol: Mean CTDIvol: 0.80 (mGy) All CT scans at [facility] use at least one of these dose optimization techniques: automat ed exposure control; mA and/or kV adjustment per patient size (includes targeted exams where dose is matched to clinical indication); or iterative reconstruction. FINDINGS: Advanced chronic emphysematous changes. Few calcified granulomas. No suspicious pulmonary parenchymal abnormalities. Normal caliber thoracic aorta. Coronary calcification. No mediastinal or hilar lympha denopathy. No axillary lymphadenopathy. Mild bilateral adrenal thickening. Normal GE junction. Gallbl adder is contracted. Partially visualized cholelithiasis. This can followed up with ultrasound. Moderate thoracic kyphosis. Chronic anterior wedging in the midthoracic spine. Subsegmental atelectas is with bronchiectasis in the RIGHT middle lobe. IMPRESSION: Partially visualized cholelithiasis. Recommend ultrasound gallbladder. CT/CT lung screening [id number] LUNG-RADS: 1S-Negative with Significant Findings FOLLOW UP: 12 Month: Continue annual screening with LDCT
[2023-09-05 08:21] VITALS: PULSE 100; RESP 18; O2SAT 95
[2023-09-05] MEDS: albuterol 2.5 mg/3 mL Neb INHALATION (08:21)
[2023-09-05 08:26] VITALS: PULSE 103
== END 2023-09-05 07:55 | disposition home or self-care (01) ==
LOC: RT 07:54
PROVIDERS: PCP Family Medicine; Visit Provider Internal Medicine Pulmonary Disease
DX: Z12.2 Encounter for screening for malignant neoplasm of respiratory organs (principal); Z87.891 Personal history of nicotine dependence; J44.9 Chronic obstructive pulmonary disease, unspecified; R94.2 Abnormal results of pulmonary function studies
CPT/HCPCS: 71271; 94060; 94618; 94726; 94729; J7613

== ENCOUNTER → 2023-09-27 10:36 | Outpatient (BNVA) | payer MEDICARE, MEDICAID, SELFPAY | PROVIDERS: PCP Family Medicine; Visit Provider Internal Medicine Pulmonary Disease | DX: Z78.9 Other specified health status (principal); J44.9 Chronic obstructive pulmonary disease, unspecified; Z12.2 Encounter for screening for malignant neoplasm of respiratory organs; Z87.891 Personal history of nicotine dependence; Z99.81 Dependence on supplemental oxygen | CPT/HCPCS: 99214 ==

== ENCOUNTER 2023-11-01 09:11 | Inpatient (IN) | payer MEDICARE, MEDICAID, SELFPAY ==
[2023-11-01] VITALS (46 sets, daily range): BP systolic 87–133; BP diastolic 62–103; PULSE 95–143; RESP 16–37; TEMP 36.6–36.7; O2SAT 89–99; BMI 19.9; BMI 19.2
--- NOTE | 2023-11-01 09:14 | XR_ITS ---
WS: [id number] Portable AP upright chest, 11/01/2023 Clinical Data: dyspnea/cough Comparison: Portable chest, 11/21/2012 Findings: There our patchy bibasilar opacities which may represent atelectasis and/or pneumonia. Ther e is extreme hyperinflation with flattening of the diaphragms. No nodules, masses or effusions are se en. The heart is normal. The pulmonary vascularity is not increased. No pneumothorax is seen. Monito r leads are on the chest wall. Impression: 1. Patchy bibasilar opacities which may represent atelectasis and/or pneumonia. 2. Extreme hyperinflation.
--- NOTE | 2023-11-01 09:20 | ECG_ITS ---
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 Measurements Intervals [place] Rate: 127 P: 92 VA: 150 QRS: 90 QRSD: 93 T: 103 QT: 373 QTc: 544 Interpretive Statements SINUS TACHYCARDIA WITH FREQUENT VENTRICULAR PREMATURE COMPLEXES LOW QRS VOLTAGE IN EXTREMITY LEADS [QRS DEFLECTION < 0.5 mV IN LIMB LEADS] MODERATE T-WAVE ABNORMALITY, CONSIDER LATERAL ISCHEMIA [-0.1+ mV T-WAVE IN I/aVL/V5/V6] No previous ECG available for comparison Electronically Signed On 11-01-2023 14:42:48 [employer] by Adolph Pinto M.D. [id number]
--- NOTE | 2023-11-01 09:33 | W.ED.SOB ---
HPI - SOB/Dyspnea General: Chief Complaint: ER Hold Stated Complaint: sob Time Seen by Provider: 11/01/23 09:13 Source: patient Mode of arrival: ambulatory History of Present Illness: HPI Narrative: 62-year-old male presents emergency room complaining of shortness of breath. Patient relates to id he has been short of breath increasingly with productive cough for the last couple of days. He reports a fever cough has been slightly productive. Patient is in significant respiratory distress on arrival with tachypnea and air hunger use of accessory respiratory muscles. He denies any chest pain. Low-grade fever as well. MD elicited complaint: shortness of breath and cough Pertinent past history: COPD Onset (ago): day(s) Timing: constant Exacerbating factors: exertion and coughing Relieving factors: oxygen, rest and bronchodilators Known history of: COPD Associated symptoms: Reports chest congestion and cough; Deny abdominal pain, chest pain, diaphoresis, dizziness, extremity pain, fever(s), hemoptysis, lightheadedness, myalgias, nausea, orthopnea, palpitations, paresthesias, polydipsia, polyuria, rash, sense of impending doom, syncope or vomiting Treatment prior to arrival: oxygen Review of Systems Const: Denies: fever(s), chills or diaphoresis Card: Denies: chest pain, palpitations, lightheadedness, syncope or orthopnea Resp: Reports: chest congestion; Denies: dyspnea or hemoptysis GI: Denies: abdominal pain, nausea or vomiting : Denies: dysuria, urinary frequency or urinary urgency Musc: Denies: neck pain, back pain or extremity pain Skin/Breast: Denies: rash Neuro: Denies: dizziness Endo: Denies: polyuria or polydipsia PFS ED PFSH: Medical History (Updated 11/01/23 @ 17:37 by Eric Mejia DO) Bladder cancer History of brain tumor 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 6 months [place] Glioma of brain Seizure Anxiety Surgical History H/O transurethral destruction of bladder lesion History of removal of cyst History of hernia surgery Family History Father , AT AGE 82 , sudden, cause unknown Mother , IN LATE 70'S Stroke Social History Smoking and tobacco/nicotine status: former use of tobacco/nicotine Quit status (tobacco/nicotine): has quit using Year quit tobacco: October 1999 Former quit date comment: 2-3 ppd X 30 years Alcohol intake: never Substance/Drug Use: never Marital status: Current occupational status: disabled Physical Exam Const: COMMON NORMALS: no acute distress GENERAL APPEARANCE: cooperative and comfortable ORIENTATION/CONSCIOUSNESS: Yes awake, Yes oriented to person, Yes oriented to place and Yes oriented to time HENMT: COMMON NORMALS: normocephalic, atraumatic and hearing grossly normal bilaterally HEAD & SCALP: normocephalic and atraumatic Resp: COMMON NORMALS: normal respiratory effort, No retractions, No use of accessory muscles and clear to auscultation bilaterally AUSCULTATION: clear to auscultation bilaterally Cardio: COMMON NORMALS: regular rate, regular rhythm and No murmurs present (Cardio) RATE: regular rate RHYTHM: regular rhythm GI: COMMON NORMALS: Soft to palpation and No hepatosplenomegaly present AUSCULTATION: Yes normoactive bowel sounds PALPATION: Yes Soft to palpation, No Tenderness to palpation present (GI), No Guarding due to palpation present (GI) and Yes No hepatosplenomegaly present Extremity: COMMON NORMALS: normal to inspection, capillary refill normal, no clubbing, cyanosis or edema, no calf tenderness and no pedal edema Neuro: SENSORIUM/ORIENTATION: Yes oriented to person, Yes oriented to place and Yes oriented to time Skin: COMMON NORMALS: no rashes or lesions noted GENERAL SKIN EXAM: no rashes or lesions noted Course Vital Signs: Vital signs: Vital Signs Temperature 98.0 F 11/01/23 09:16 Pulse Rate 128 H 11/01/23 16:55 Respiratory Rate 25 H 11/01/23 16:40 Blood Pressure 126/98 11/01/23 15:31 Pulse Oximetry 96 11/01/23 16:49 Oxygen Delivery Me thod BiPAP 11/01/23 16:40 Oxygen Flow Rate 6 11/01/23 10:40 Fraction of Inspir ed Oxygen 45 11/01/23 16:49 MDM - SOB/Dyspnea Medical Decision Making Patient and hypercapnic respiratory failure started on BiPAP. Started on IV antibiotics steroids and nebulizers. Does have significant leukocytosis. Initial fluid bolus given. Then a full sepsis bolus ordered. First troponin is [address] Cheng will get a CTA of his chest additionally will start on heparin until the results are back and we get a full troponin series. EKG does not show any acute ST changes. Medical Records I reviewed the patient's medical records. Lab Data I reviewed the patient's lab results. 11/01/23 09:38 11/01/23 09:38 Labs/Radiology: Laboratory Results WBC 19.84 10^3/uL (3.29-11.43) H 11/01/23 09:38 RBC 4.90 10^6/uL (3.85-5.65) 11/01/23 09:38 Hgb 15.00 g/dL (11.27-16.99) 11/01/23 09:38 Hct 47.6 % (37-53) 11/01/23 09:38 MCV 97.1 fl (82-101) 11/01/23 09:38 MCH 30.6 pg (27-33) 11/01/23 09:38 MCHC 31.5 g/dL (30-55) 11/01/23 09:38 RDW 14.8 % (12.1-15.1) 11/01/23 09:38 Plt Count 209 10^3/cmm (157-399) 11/01/23 09:38 MPV 9.9 fL (7.4-10.4) 11/01/23 09:38 Neut % (Auto) 89.2 % 11/01/23 09:38 Lymph % (Auto) 1.2 % 11/01/23 09:38 [place] % (Auto) 8.1 % 11/01/23 09:38 Eos % (Auto) 0.0 % 11/01/23 09:38 Baso % (Auto) 0.2 % 11/01/23 09:38 Neut # (Auto) 17.72 10^3/uL (1.8-7.7) H 11/01/23 09:38 Lymph # (Auto) 0.2 10^3/uL (0.8-4.8) L 11/01/23 09:38 [place] # (Auto) 1.6 10^3/uL (0.2-0.9) H 11/01/23 09:38 Eos # (Auto) 0.0 10^3/uL (0.0-0.8) 11/01/23 09:38 Baso # (Auto) 0.0 10^3/uL (0.0-0.1) 11/01/23 09:38 Nucleated RBC % (auto) 0 % 11/01/23 09:38 Nucleated RBCs # 0.0 /100WBC 11/01/23 09:38 Specimen Type Arterial 11/01/23 09:47 Sample Site Radial, right 11/01/23 09:47 ABG pH 7.27 (7.35-7.45) L 11/01/23 09:47 ABG pCO2 70.3 mmHg (35-45) H* 11/01/23 09:47 ABG pO2 108.0 mmHg (80.0-100.0) H 11/01/23 09:47 ABG PO2/FiO2 Ratio 0 11/01/23 09:47 ABG HCO3 32.0 mmol/L (22-26) H 11/01/23 09:47 ABG O2 Saturation 97.4 11/01/23 09:47 ABG Base Excess 2.6 mmol/L (-2.0-2.0) H 11/01/23 09:47 Az Test Pos 11/01/23 09:47 A-a O2 Gradient 4.4 mmHg (5-10) L 11/01/23 09:47 Hematocrit 47.1 % (42-52) 11/01/23 09:47 Hgb O2 Saturation 96.4 % (95-100) 11/01/23 09:47 Carboxyhemoglobin 0.6 %THgb (0.4-20.1) 11/01/23 09:47 Methemoglobin 0.4 % (0.4-1.5) 11/01/23 09:47 Total Hemoglobin 15.4 g/dL (14-18) 11/01/23 09:47 Sodium 138.0 mmol/L (131-143) 11/01/23 09:47 Potassium 3.9 mmol/L (3.5-5.0) 11/01/23 09:47 Glucose 227.0 mg/dL (70-115) H 11/01/23 09:47 Ionized Calcium 1.2 mmol/L (1.1-1.4) 11/01/23 09:47 O2 Delivery Device Nc 11/01/23 09:47 O2 Liters/Min 3.0 % 11/01/23 09:47 FiO2 32.0 % 11/01/23 09:47 Hospital Aides And Assistants Teacher ID glc 11/01/23 09:47 Sodium 136 mmol/L (136-145) 11/01/23 09:38 Potassium 4.5 mmol/L (3.5-5.1) 11/01/23 09:38 Chloride 93 mmol/L (98-107) L 11/01/23 09:38 Carbon Dioxide 30 mmol/L (22-29) H 11/01/23 09:38 Anion Gap 17.5 (5-19) 11/01/23 09:38 BUN 21 mg/dL (8-23) 11/01/23 09:38 Creatinine 0.8 mg/dL (0.7-1.2) 11/01/23 09:38 GFR Calculation 98.0 mL/min (90-130) 11/01/23 09:38 Glucose 244 mg/dL (65-115) H 11/01/23 09:38 Estimat Average Glucose 117 11/01/23 09:38 Hemoglobin A1c 5.7 % (4.0-6.0) 11/01/23 09:38 Calculated Osmolality 293 mOsm/kg (285-295) 11/01/23 09:38 Lactic Acid 3.8 mmol/L (0.5-2.2) H 11/01/23 09:38 Calcium 8.7 mg/dL (8.5-10.5) 11/01/23 09:38 Magnesium 2.4 mg/dL (1.7-2.3) H 11/01/23 09:38 Total Bilirubin 0.2 mg/dL (0.15-1.2) 11/01/23 09:38 AST 37 U/L (0-40) 11/01/23 09:38 ALT 31 U/L (0-41) 11/01/23 09:38 Alkaline Phosphatase 94 U/L (40-130) 11/01/23 09:38 Troponin T Baseline 195 ng/L (0-15) H* 11/01/23 09:38 NT-Pro-B Natriuret Pep 8940 pg/mL (0-125) H 11/01/23 09:38 Total Protein 7.2 g/dL (6.6-8.7) 11/01/23 09:38 Albumin 4.1 g/dL (3.5-5.2) 11/01/23 09:38 Globulin 3.1 g/dL (1.3-4.6) 11/01/23 09:38 TSH 0.33 uIU/mL (0.27-4.20) 11/01/23 09:38 Carbamazepine 6.9 ug/mL (4.0-12.0) 11/01/23 09:38 Adenovirus (PCR) Not detected (NOT DETECT) 11/01/23 09:50 C. pneumoniae DNA (PCR) Not detected (NOT DETECT) 11/01/23 09:50 Coronavirus 229E (PCR) Not detected (NOT DETECT) 11/01/23 09:50 Human Metapneumovir PCR Not detected (NOT DETECT) 11/01/23 09:50 Influenza A (H1) PCR Not detected (NOT DETECT) 11/01/23 09:50 Influ A (H1/09) PCR Not detected (NOT DETECT) 11/01/23 09:50 Influenza A (H3) PCR Not detected (NOT DETECT) 11/01/23 09:50 Influenza Type A (PCR) Not detected (NOT DETECT) 11/01/23 09:50 Influenza Type B (PCR) Detected (NOT DETECT) A 11/01/23 09:50 M. pneumoniae (PCR) Not detected (NOT DETECT) 11/01/23 09:50 Parainfluenza 1 (PCR) Not detected (NOT DETECT) 11/01/23 09:50 Parainfluenza 2 (PCR) Not detected (NOT DETECT) 11/01/23 09:50 Parainfluenza 3 (PCR) Not detected (NOT DETECT) 11/01/23 09:50 Parainfluenza 4 (PCR) Not detected (NOT DETECT) 11/01/23 09:50 RSV Type A (PCR) Not detected (NOT DETECT) 11/01/23 09:50 RSV Type B (PCR) Not detected (NOT DETECT) 11/01/23 09:50 Entero/Rhino (PCR) Not detected (NOT DETECT) 11/01/23 09:50 SARS-CoV-2 (PCR) Not detected (NOT DETECT) 11/01/23 09:50 All radiology interpretation(s) finalized by discharge Discharge Plan Discharge Patient Disposition: Admitted As Inpatient Admit Provider: Bart Ordonez Clinical Impression: Acute exacerbation of chronic obstructive pulmonary disease (COPD), Acute respiratory failure with hypoxia and hypercapnia, Elevated troponin, Pneumonia, Bladder cancer Condition: Stable Coding Level of Care Code ED Manager Party for Gaby Acosta
[2023-11-01] MEDS: ipratropium-albuterol 3 mL Neb 6 ML INHALATION (09:47)
[2023-11-01] MEDS: dexamethasone 10 mg/mL INJ IM (09:56)
[2023-11-01 09:58] LABS: ABG PH Result 7.27 (7.35-7.45); Alveolar-Arterial Oxygen Gradi 4.4 mmHg (5-10); Arterial Blood Gas Hematocrit 47.1 % (42-52); Base Excess ABG 2.6 mmol/L (-2.0-2.0); Blood Gas Allen Test Pos; Blood Gas Operator Identificat glc; Blood Gas Sample Site Radial, right; Blood Gas Sample Type Arterial; Carboxyhemoglobin 0.6 %THgb (0.4-20.1); HGB O2 Sat 96.4 % (95-100); Ionized Calcium Level - ABG 1.2 mmol/L (1.1-1.4); Methemoglobin 0.4 % (0.4-1.5); Oxygen Device NC; Oxygen Saturation ABG 97.4; PO2 FiO2 Ratio Arterial Blood 0; Potassium Level - ABG 3.9 mmol/L (3.5-5.0); Total Hemoglobin 15.4 g/dL (14-18)
[2023-11-01 09:59] LABS: ABG PCO2 70.3 mmHg (35-45)
[2023-11-01 10:06] LABS: Basophils % 0.2 %; Hematocrit 47.6 % (37-53); Lymphocytes # 0.2 10^3/uL (0.8-4.8); Lymphocytes % 1.2 %; Mean Corpuscular HGB Conc 31.5 g/dL (30-55); Mean Corpuscular Hemoglobin 30.6 pg (27-33); Mean Corpuscular Volume 97.1 fl (82-101); Mean Platelet Volume 9.9 fL (7.4-10.4); Monocytes # 1.6 10^3/uL (0.2-0.9); Monocytes % 8.1 %; Neutrophils # 17.72 10^3/uL (1.8-7.7); Neutrophils % 89.2 %; Nucleated Red Blood Cells % 0 %; Platelet Count 209 10^3/cmm (157-399); Red Cell Distribution Width 14.8 % (12.1-15.1); White Blood Count 19.84 10^3/uL (3.29-11.43)
[2023-11-01 10:22] LABS: Lactic Sepsis W/Reflex 3.8 mmol/L (0.5-2.2)
[2023-11-01] MEDS: levofloxacin-dextrose 5 % 750 MG/150 ML PREMIX 100 MG IV (10:26)
[2023-11-01 10:39] LABS: Alanine Aminotransferase 31 U/L (0-41); Albumin Level 4.1 g/dL (3.5-5.2); Alkaline Phosphatase 94 U/L (40-130); Aspartate Amino Transferase 37 U/L (0-40); Blood Urea Nitrogen 21 mg/dL (8-23); Calcium 8.7 mg/dL (8.5-10.5); Carbon Dioxide 30 mmol/L (22-29); Chloride 93 mmol/L (98-107); Creatinine Clr Calc Pharmacy 90.6127; Globulin 3.1 g/dL (1.3-4.6); Glucose 244 mg/dL (65-115); Osmolality Calculated 293 mOsm/kg (285-295); Sodium 136 mmol/L (136-145); Total Bilirubin 0.2 mg/dL (0.15-1.2); Total Protein 7.2 g/dL (6.6-8.7)
[2023-11-01 10:50] LABS: Anion Gap 17.5 (5-19); Potassium 4.5 mmol/L (3.5-5.1)
[2023-11-01 10:51] LABS: Troponin(5th) Baseline 195 ng/L (0-15)
--- NOTE | 2023-11-01 11:03 | ECG_ITS ---
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 Measurements Intervals [place] Rate: 130 P: 82 SC: 148 QRS: 100 QRSD: 86 T: 136 QT: 305 QTc: 449 Interpretive Statements SINUS TACHYCARDIA WITH OCCASIONAL VENTRICULAR PREMATURE COMPLEXES INDETERMINATE AXIS LOW QRS VOLTAGE IN EXTREMITY LEADS [QRS DEFLECTION < 0.5 mV IN LIMB LEADS] MODERATE T-WAVE ABNORMALITY, CONSIDER LATERAL ISCHEMIA [-0.1+ mV T-WAVE IN I/aVL/V5/V6] Compared to ECG 11/01/2023 09:20:33 Indeterminate axis now present T-wave abnormality still present Possible ischemia still present Electronically Signed On 11-01-2023 14:50:04 [employer] by Adolph Pinto M.D. [id number]
--- NOTE | 2023-11-01 11:05 | CT_ITS ---
WS: [id number] CTA OF THE CHEST WITH PULMONARY EMBOLISM PROTOCOL TECHNIQUE: High-resolution contrast enhanced CTA of the chest with coronal and sagittal reformatted i mages with pulmonary embolism protocol. MIP images are also reviewed. CLINICAL INFORMATION: resp failure abnormal COMPARISON: None. DLP: 223.[address] scans at [facility] use at least one of these dose optimization techniques: automated e xposure control; mA and/or kV adjustment per patient size (includes targeted exams where dose is matc hed to clinical indication); or iterative reconstruction. FINDINGS:Proximal main pulmonary arteries are normal. Normal segmental and subsegmental pulmonary art eries. No evidence of pulmonary embolus. Advanced chronic emphysematous changes. A few calcified granulomas. Bibasilar atelectasis. Subsegment al atelectasis with subtotal consolidation in the RIGHT middle lobe progressed compared to the prior CT 09/05/2023. Associated air bronchograms. Normal caliber thoracic aorta. No mediastinal or hilar lymphadenopathy. Contrast reflux into the hepa tic veins suggestive of RIGHT heart dysfunction. Mild thoracic kyphosis. IMPRESSION: 1. Proximal main pulmonary arteries are normal. No evidence of pulmonary embolus. 2. Advanced chronic emphysematous changes. 3. Subsegmental atelectasis with subtotal consolidation in the RIGHT middle lobe progressed compared to 09/05/2023 with associated air bronchograms. No visualized endobronchial lesions. This could be fu rther evaluated with bronchoscopy or 3-month follow-up. 4. A few hazy opacities and atelectasis in the RIGHT greater than LEFT lower lobes. 5. No other acute findings.
[2023-11-01 11:45] LABS: Adenovirus Not Detected (NOT DETECT); Chlamydia Pneumoniae Not Detected (NOT DETECT); Coronavirus 229E,HKU1,NL63,OC4 Not Detected (NOT DETECT); Human Metapneumovirus Not Detected (NOT DETECT); Human Rhinovirus/Enterovirus Not Detected (NOT DETECT); Influenza A Not Detected (NOT DETECT); Influenza A H1 Not Detected (NOT DETECT); Influenza A H1-2009 Not Detected (NOT DETECT); Influenza A H3 Not Detected (NOT DETECT); Influenza B Detected (NOT DETECT); Mycoplasma Pneumoniae Not Detected (NOT DETECT); Parainfluenza Virus Type 1 Not Detected (NOT DETECT); Parainfluenza Virus Type 2 Not Detected (NOT DETECT); Parainfluenza Virus Type 3 Not Detected (NOT DETECT); Parainfluenza Virus Type 4 Not Detected (NOT DETECT); Respiratory Syncytial Virus A Not Detected (NOT DETECT); Respiratory Syncytial Virus B Not Detected (NOT DETECT); SARS-COV-2 Not Detected (NOT DETECT)
[2023-11-01 11:49] LABS: Reflex Lactate Order REFLEX LACTIC ORDERD
[2023-11-01] MEDS: iohexol 350 mg/mL 500 mL Btl (per mL) IV (11:55)
[2023-11-01 12:06] LABS: Bilirubin Urine Neg (Negative); Blood Urine 2+ (Negative); Glucose Urine UA 4+ (Normal); Ketones Urine 1+ (Negative); Leukocyte Esterase Urine Negative (Negative); Nitrate Urine Negative (Negative); Protein Urine 2+ (Negative); Specific Gravity, Urine 1.025 (1.005-1.030); Urine Appearance SL Hazy (CLEAR); Urine Color Yellow (Yellow); Urobilinogen Urine Norm (Negative); pH Urine 5 (5-7)
--- NOTE | 2023-11-01 12:09 | P.HP_ITS ---
Providers/Chief Complaint 2 Admitting Physician: Bart Ordonez MD Primary Care Provider: Joshua Casiano DO Chief Complaint: sob History of Present Illness Axel Duran is a 62 year old male presenting to the emergency department with 3 days of history of elevated temperature, shortness of breath, cough, and ultimately some weakness. There was concern about some confusion this morning. Temperature was as high as 101.7. No vomiting or diarrhea. Is typically on 2 L of oxygen at home. Does not have BiPAP or CPAP. He has been wheezing, and chest has felt tight. In the emergency department he received a dose of Levaquin, some IV fluids, and injection of dexamethasone, and was placed on a heparin drip for elevated troponin. A CTA of the chest is ordered and pending. Review of Systems 2 General: Reports: 10 or more systems reviewed and unremarkable except in HPI and below Card: Reports: chest pain Resp: Reports: dyspnea, non-productive cough and wheezing GI: Denies: abdominal pain, nausea, vomiting, hematochezia or melena Medications/Allergies Home Medications Medication Instructions Recorded Confirmed Last Taken Type carbamazepine 200 mg 200 mg PO BID 04/05/20 11/01/23 10/31/23 History tablet,extended release,12 hr levetiracetam 1,000 mg tablet 1,500 mg PO BID 04/05/20 11/01/23 10/31/23 History (Keppra) acetaminophen 500 mg tablet 1,000 mg PO Q6H PRN pain 07/29/21 11/01/23 08/02/21 History (Tylenol Extra Strength) ibuprofen 200 mg capsule 400 mg PO Q6H PRN Pain 02/09/22 11/01/23 Unknown History lorazepam 1 mg tablet 1 mg PO TID PRN Anxiety #90 tabs 06/15/23 11/01/23 10/31/23 Rx albuterol sulfate 90 mcg/actuation 2 puff inhalation QID PRN 08/14/23 11/01/23 Unknown Rx aerosol inhaler shortness of breath or wheezing #8.5 grams budesonide 0.5 mg/2 mL suspension 0.5 mg (2 mL) inhalation BID #120 09/27/23 11/01/23 Unknown Rx for nebulization mL formoterol fumarate 20 mcg/2 mL 2 ml inhalation BID #120 mL 09/27/23 11/01/23 Unknown Rx solution for nebulization (Perforomist) ipratropium 0.5 mg-albuterol 3 mg 3 ml inhalation QID PRN wheezing 09/27/23 11/01/23 10/31/23 Rx (2.5 mg base)/3 mL nebulization #180 mL soln revefenacin 175 mcg/3 mL solution 175 mcg (3 mL) inhalation DAILY 09/27/23 11/01/23 Unknown Rx for nebulization (Yupelri) #90 mL tamsulosin 0.4 mg capsule (Flomax) 0.4 mg PO QPM 09/27/23 11/01/23 10/31/23 History fluticasone 100 mcg-salmeterol 50 1 inh inhalation DAILY #60 ea 10/08/23 11/01/23 Unknown Rx mcg/dose blistr powdr for inhalation (Advair Diskus) mirabegron 25 mg tablet,extended 25 mg PO BEDTIME 11/01/23 11/01/23 10/31/23 History release 24 hr (Myrbetriq) Allergies Allergy/AdvReac Type Severity Reaction Status Date / Time No Known Allergies Allergy Verified 09/27/23 10:50 PFSH Acute 2 PFSH: Medical History (Updated 11/01/23 @ 14:14 by Bart Ordonez MD) Bladder cancer History of brain tumor 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 6 months [place] Glioma of brain Seizure Anxiety Surgical History H/O transurethral destruction of bladder lesion History of removal of cyst History of hernia surgery Family History Father , AT AGE 82 , sudden, cause unknown Mother , IN LATE 70'S Stroke Social History Smoking and tobacco/nicotine status: former use of tobacco/nicotine Quit status (tobacco/nicotine): has quit using Year quit tobacco: October 1999 Former quit date comment: 2-3 ppd X 30 years Alcohol intake: never Substance/Drug Use: never Marital status: Current occupational status: disabled Vitals/I&O/Wt Last Vital Signs Temp 98.0 F 11/01/23 09:16 Pulse 119 H 11/01/23 10:59 Resp 37 H 11/01/23 10:40 BP 116/85 11/01/23 09:49 Pulse Ox 95 11/01/23 10:59 O2 Del Method Nasal Cannula 11/01/23 10:40 O2 Flow Rate 6 11/01/23 10:40 FiO2 28 11/01/23 10:59 Weight last 48 hrs Weight 61.235 kg Physical Exam 2 Narrative: General exam is acute tachypneic white male, with some use of accessory muscles, he was getting BiPAP put on. HEENT: Atraumatic and normocephalic. Oropharynx is clear Neck is supple Cardiovascular tachycardic, no murmur Lungs markedly diminished breath sounds bilaterally. A few bilateral wheezes Abdomen is soft, no obvious organomegaly. Positive bowel sounds exam is deferred Extremities no sinus clubbing edema, cap refill brisk Skin no rash Neuro no obvious focal deficits. Data 11/01/23 09:38 11/01/23 09:38 Other Labs: Initial ABG demonstrated pH 7.27, pCO2 of 70, pO2 of 108 on 3 L nasal cannula LFTs normal Lactic acid 3.8 Troponin 195 with repeat pending Albumin and calcium are normal Urinalysis 0-4 reds 0-4 whites Respiratory panel completed and was positive for influenza type B CTA demonstrates no pulmonary embolism. Atelectasis with consolidation right middle lobe is noted, seemingly progressed from August 2023. Atelectasis/infiltrates also present right and left lower lobes. Chest x ray by my read bilateral lower infiltrates. COPD changes. EKG initially demonstrate some PVCs, sinus tachycardia, normal axis, nonspecific ST-T wave changes. Repeat EKG does demonstrate some inverted T waves V4 through 6, somewhat clearer as a little less artifact. Micro: Microbiology 11/01/23 10:48 Blood Culture - Preliminary Blood SPECIMEN COLLECTED 11/01/23 09:38 Blood Culture - Preliminary Blood SPECIMEN COLLECTED A&P Assessment and plan (1) Acute respiratory failure with hypoxia and hypercapnia: Patient presents with acute respiratory failure with hypoxemia and hypercapnia, in the setting of severe COPD. Placed on BiPAP Initiate Ativan, to facilitate this See notations below under other respiratory conditions. Wean BiPAP as tolerated. CTA does not show pulmonary embolism. It does show evidence of pneumonia in the lower lobes and right middle lobe. Significant risk for decompensation, currently on BiPAP, warranting ICU placement and close monitoring. (2) Influenza B: Respiratory panel positive for influenza B. Start Tamiflu 150 mg twice daily. Plan for 5 days of treatment. (3) Acute exacerbation of chronic obstructive pulmonary disease (COPD): Given dexamethasone in the emergency department. Continue Solu-Medrol 60 mg IV every 12 hours DuoNeb every 4 hours Budesonide twice daily (4) Elevated brain natriuretic peptide (BNP) level: BNP is elevated. Check echocardiogram If respiratory condition does not improve consider Lasix 20 mg IV x 1. Clinically, he does not appear to have significant heart failure. (5) Elevated troponin: Troponin is elevated Heparin started in the emergency department Aspirin daily Lipid profile in the morning May be type II elevation, will await repeat troponins. Await echocardiogram (6) History of brain tumor: Patient with history of brain tumor and seizure disorder. Continue Keppra and Tegretol. Check Tegretol level. Seizure precautions. (7) Bladder cancer: Followed in [place] Qualifiers: Bladder location: overlapping sites Qualified Code(s): C67.8 - Malignant neoplasm of overlapping sites of bladder (8) Hyperglycemia: Check hemoglobin A1c May need sliding scale insulin (9) Pneumonia: Concern of bacterial pneumonia Sputum culture MRSA PCR Levaquin 750 mg IV every 24 hours Plan Multiple other medical problems as outlined in past medical history Full code currently Heparin will suffice for DVT prophylaxis Attestations 2 Medical Necessity Statement*: Will need greater than 2 midnight stay for evaluation and treatment of pneumonia, acute COPD exacerbation, elevated troponin Critical Care Time: The high probability of a clinically significant, sudden or life threatening deterioration of the patient's [pulmonary, cardiac, infectious disease] s ystem(s) required my full and direct attention, intervention and personal management. The critical care time is as shown. This time is in addition to time spent performing any reported procedures but includes the following: [x] Data and vital sign review and interpretation [x] Patient assessment, examination and intervention [x] Documentation [x] Medication orders and management Critical Care Time (min): 65 Coding Level of Care Code Critical Care >/= 30 minutes Critical care time (in minutes): 65 The high probability of a clinically significant, sudden or life threatening deterioration, as referenced in this documentation, required my full and direct attention, intervention and personal management. The critical care time shown is in addition to time spent performing any reported separately billable procedures and includes the following: [x] Data and vital sign review and interpretation [x ] Patient assessment, examination and intervention [x] Medication orders and management [x] Patient/Family updates as able [x] Care Coordination and Documentation. Diagnoses Acute respiratory failure with hypoxia and hypercapnia J96.01; J96.02 Influenza B J10.1 Acute exacerbation of chronic obstructive pulmonary disease (COPD) J44.1 Elevated brain natriuretic peptide (BNP) level R79.89 Elevated troponin R79.89 History of brain tumor Z87.898 Malignant neoplasm of overlapping sites of bladder C67.8 Bladder location: overlapping sites Hyperglycemia R73.9 Pneumonia J18.9
[2023-11-01 12:10] LABS: Add Urine Culture? No; Amorphous Sediment Urine TRACE /hpf; Bacteria Urine TRACE /hpf; Fine Granular Casts Urine 15-25 /lpf; Hyaline Casts Urine 0-4 /lpf; Mucus Urine 1+ /hpf; RBC Urine 0-4 /hpf (0-2); WBC Urine 0-4 /hpf (0-5)
[2023-11-01 12:19] LABS: Magnesium 2.4 mg/dL (1.7-2.3); NT Pro B Type Natriuretic Pept 8940 pg/mL (0-125); Thyroid Stimulating Hormone 0.33 uIU/mL (0.27-4.20)
[2023-11-01] MEDS: heparin 5,000 unit/mL INJ 1 mL IV (12:30)
[2023-11-01] MEDS: heparin drip 25,000 UNIT/500 ML PREMIX 17.1499999999999986 UNIT IV (12:36)
[2023-11-01 12:43] LABS: Carbamazepine Tegretol 6.9 ug/mL (4.0-12.0)
--- NOTE | 2023-11-01 12:43 | USCV_ITS ---
Axel Duran Age: 62 Gender: M : 1960 Exam Date: 11/01/2023 22:04 Ordering Phys: Bart Ordonez MD Technologist: LINNETTE Exam Location: [facility] – [place] Indication: order says elevated BNP - Patient is unresponsive on BIPAP in ICU-2. BP: 126 / 98 HR: 89 Rhythm: Sinus Technical Quality: Adequate MEASUREMENTS (Male / Female) Normal Values 2D ECHO LV Diastolic Diameter PLAX 4.1 cm 4.2 - 5.9 / 3.9 - 5.3 cm IVS Diastolic Thickness 1.5 cm 0.6 - 1.0 / 0.6 - 0.9 cm IVS Systolic Thickness 1.6 cm LVPW Diastolic Thickness 1.3 cm 0.6 - 1.0 / 0.6 - 0.9 cm LVPW Systolic Thickness 1.7 cm LVOT Diameter 2.0 cm LV Ejection Fraction 2D Teich 34.3 % LV Ejection Fraction MOD 2C 42.4 % LV Ejection Fraction 2C AL 43.3 % LA Diameter 3.8 cm Aorta at Sinotubular Diameter 3.2 cm IVC Diameter 1.8 cm M-MODE LA Ao Ratio MM 0.9 AV Cusp Separation MM 1.3 cm DOPPLER MV Peak Velocity 56.0 cm/s MV Area PHT 7.7 cm squared Mitral E to A Ratio 0.7 TV Peak Velocity 184.5 cm/s TR Peak Velocity 189.0 cm/s TR Peak Gradient 14.3 mmHg TV Peak E Velocity 41.0 cm/s Right Atrial Pressure 3.0 mmHg Pulmonary Artery Systolic Pressu 17.3 mmHg PV Peak Velocity 71.0 cm/s FINDINGS Left Ventricle Severe diffuse hypokinesia of the left ventricle. LV ejection fraction around 20 to 25%(visual). The LV apex is not visualized well. Right Ventricle Mildly dilated right ventricle with the moderate diffuse hypokinesia Right Atrium Possibly of normal size Left Atrium Possibly of normal size Mitral Valve Trace to mild mitral valve regurgitation. Aortic Valve Thickened aortic valve. Tricuspid Valve Mild tricuspid valve regurgitation. Pulmonic Valve Mildpulmonary valve regurgitation. Pericardium No significant pericardial effusion Aorta The aortic root appeared to be of normal size IVC Normal inferior vena cava. CONCLUSIONS Severe diffuse hypokinesia of the left ventricle. LV ejection fraction around 20 to 25%(visual). The LV apex is not visualized well. Mildly dilated right ventricle with the moderate diffuse hypokinesia Trace to mild mitral valve regurgitation. Mild tricuspid valve regurgitation. Mild tricuspid valve regurgitation. Mild pulmonary valve regurgitation. Technically difficult study because of poor ultrasonic windows. Only parasternal and subcostal views were obtained No similar previous studies are available for comparison. Dr Ordonez is informed about these findings. Dr Christine Novak MD [facility] (Electronically Signed) Final Date: 02 November 2023 07:59 S
[2023-11-01 12:47] LABS: Troponin 5 2HR 155.5 ng/L (0-15); Troponin 5 2HR Delta -39.5 ABS# (0-10)
[2023-11-01] MEDS: oseltamivir phosphate 75 mg Capsule PO ×2 (13:14→19:07)
[2023-11-01] MEDS: LORazepam 1 mg Tablet PO (13:14)
[2023-11-01 13:41] LABS: ABG PH Result 7.27 (7.35-7.45); Alveolar-Arterial Oxygen Gradi 0.8 mmHg (5-10); Arterial Blood Gas Hematocrit 44.7 % (42-52); Base Excess ABG -0.8 mmol/L (-2.0-2.0); Blood Gas Allen Test Pos; Blood Gas Sample Site Radial, right; Blood Gas Sample Type Arterial; Carboxyhemoglobin 0.8 %THgb (0.4-20.1); HCO3 ABG 27.7 mmol/L (22-26); Ionized Calcium Level - ABG 1.3 mmol/L (1.1-1.4); Methemoglobin 0.4 % (0.4-1.5); Oxygen Saturation ABG 93.1; PO2 ABG 69.3 mmHg (80.0-100.0); Potassium Level - ABG 4.1 mmol/L (3.5-5.0); Total Hemoglobin 14.6 g/dL (14-18)
[2023-11-01 13:42] LABS: ABG PCO2 60.8 mmHg (35-45); Blood Gas Operator Identificat GLC
[2023-11-01 13:43] LABS: Oxygen Device BIPAP; PO2 FiO2 Ratio Arterial Blood 28
[2023-11-01 13:47] LABS: Estmated Average Glucose 117; Hemoglobin A1C 5.7 % (4.0-6.0)
[2023-11-01 13:54] LABS: Lactic Acid level (Lactate) 3.4 mmol/L (0.5-2.2)
[2023-11-01] MEDS: LORazepam 2 mg/mL INJ 10 mL MDV 1 MG IVP (14:17)
[2023-11-01] MEDS: dexmedeTOMIDine 0.9 % NaCL 400 MCG/100 ML PREMIX 1.53000000000000003 MCG IV (15:20)
[2023-11-01] MEDS: FUROsemide 10 mg/mL SDV 2mL 20 MG IVP (15:23)
--- NOTE | 2023-11-01 15:31 | ECG_ITS ---
[facility] Test Date: 2023-11-01 Pat Name: Axel Duran Department: Room: EDIP Gender: Male Materials Inspector: : 1960 Requested By: Eric Duong Order Number: [id number] Reading MD: Christine Novak M.D. Measurements Intervals [place] Rate: 127 P: 92 IA: 149 QRS: 79 QRSD: 87 T: 198 QT: 325 QTc: 473 Interpretive Statements SINUS TACHYCARDIA WITH OCCASIONAL VENTRICULAR PREMATURE COMPLEXES LOW QRS VOLTAGE IN EXTREMITY LEADS [QRS DEFLECTION < 0.5 mV IN LIMB LEADS] ST DEVIATION AND MODERATE T-WAVE ABNORMALITY, CONSIDER LATERAL ISCHEMIA [-0.1+ mV T-WAVE IN I/aVL/V5/V6] Compared to ECG 11/01/2023 11:03:40 Indeterminate axis no longer present T-wave abnormality still present Possible ischemia still present Electronically Signed On 11-02-2023 17:46:11 LEAD APPLIER by Christine Novak M.D. [id number]
[2023-11-01 15:56] LABS: Troponin 5 6HR 113.6 ng/L (0-15); Troponin 5 6HR Delta -81.4 ng/L (0-12)
[2023-11-01] MEDS: ipratropium-albuterol 3 mL Neb INHALATION ×3 (16:44→23:33)
--- NOTE | 2023-11-01 16:46 | PC.NURSE ---
THIS NURSE ASSUMED CARE OF PT AT 1330. NOTED TEGRETOL MED 1HR LATE. SPOKE WITH DR. CHÁVEZ LATER ABOUT MED BEING LATE AND PT UNABLE TO COME OFF BIPAP TO GIVE IT PO. DR. CHÁVEZ OK'D MED TO BE HELD AND BE RE GIVEN AT 1800.
[2023-11-01] MEDS: carBAMazepine XR (12 HR) 200 mg Tablet PO (19:06)
[2023-11-01] MEDS: tamsulosin 0.4 mg Capsule 0.400000000000000022 MG PO (19:07)
[2023-11-01] MEDS: levETIRAcetam 500 mg Tablet 1500 MG PO (19:07)
[2023-11-01] MEDS: methylPREDNISolone sod succ 125 mg/2 mL INJ 60 MG IVP (19:07)
[2023-11-01] MEDS: budesonide 0.5 mg/2 mL Neb INHALATION (19:49)
[2023-11-01] MEDS: enoxaparin 40 mg/0.4 mL Syringe SUBCUT (20:20)
[2023-11-01] MEDS: atorvastatin 40 mg Tablet PO (20:20)
--- NOTE | 2023-11-01 22:41 | PC.NURSE ---
At 1900 it is noted during assessment that there is a shaffer catheter present. precedex drip is running at 0.6 mcg/kg/hr.
[2023-11-02] VITALS (39 sets, daily range): BP systolic 90–120; BP diastolic 51–85; PULSE 68–115; RESP 15–27; TEMP 36.1–36.9; O2SAT 91–100; BMI 19.2
[2023-11-02] MEDS: dexmedeTOMIDine 0.9 % NaCL 400 MCG/100 ML PREMIX 9.1899999999999995 MCG IV (02:54)
[2023-11-02] MEDS: ipratropium-albuterol 3 mL Neb INHALATION ×5 (03:41→19:56)
[2023-11-02 04:50] LABS: Basophils % 0.2 %; Hematocrit 43.2 % (37-53); Lymphocytes # 0.4 10^3/uL (0.8-4.8); Mean Corpuscular HGB Conc 30.3 g/dL (30-55); Mean Corpuscular Hemoglobin 30.4 pg (27-33); Mean Corpuscular Volume 100.2 fl (82-101); Mean Platelet Volume 10.4 fL (7.4-10.4); Monocytes # 0.9 10^3/uL (0.2-0.9); Monocytes % 6.9 %; Neutrophils # 11.83 10^3/uL (1.8-7.7); Neutrophils % 89.4 %; Nucleated Red Blood Cells % 0 %; Platelet Count 172 10^3/cmm (157-399); Red Blood Count 4.31 10^6/uL (3.85-5.65); Red Cell Distribution Width 14.8 % (12.1-15.1); White Blood Count 13.22 10^3/uL (3.29-11.43)
[2023-11-02 05:23] LABS: Alanine Aminotransferase 30 U/L (0-41); Alkaline Phosphatase 80 U/L (40-130); Anion Gap 16.4 (5-19); Aspartate Amino Transferase 30 U/L (0-40); Blood Urea Nitrogen 29 mg/dL (8-23); Calcium 8.4 mg/dL (8.5-10.5); Carbon Dioxide 26 mmol/L (22-29); Chloride 101 mmol/L (98-107); Cholesterol 126 mg/dL (0-200); Creatinine Clr Calc Pharmacy 102.1534; Globulin 3.5 g/dL (1.3-4.6); Glomerular Filtration Rate 114.3 mL/min (90-130); Glucose 136 mg/dL (65-115); HDL Cholesterol 42 mg/dL (60-100); LDL Cholesterol Calculated 62 mg/dL (50-129); LDL HDL Ratio 1.48 RATIO (0.00-3.22); Magnesium 2.2 mg/dL (1.7-2.3); Osmolality Calculated 296 mOsm/kg (285-295); Potassium 4.4 mmol/L (3.5-5.1); Sodium 139 mmol/L (136-145); Total Bilirubin 0.2 mg/dL (0.15-1.2); Total Protein 6.5 g/dL (6.6-8.7); Triglycerides 108 mg/dL (0-150)
[2023-11-02] MEDS: methylPREDNISolone sod succ 125 mg/2 mL INJ 60 MG IVP ×2 (05:39→17:11)
--- NOTE | 2023-11-02 06:45 | PC.NURSE ---
11/01/23 at 1900, there was no heparin drip noted to be hanging in the room. this was stopped in the MAR by this RN at this time.
[2023-11-02] MEDS: budesonide 0.5 mg/2 mL Neb INHALATION ×2 (08:10→19:56)
[2023-11-02] MEDS: levETIRAcetam 500 mg Tablet 1500 MG PO ×2 (08:38→17:11)
[2023-11-02] MEDS: carBAMazepine XR (12 HR) 200 mg Tablet PO ×2 (08:38→17:11)
[2023-11-02] MEDS: oseltamivir phosphate 75 mg Capsule PO ×2 (08:38→17:10)
[2023-11-02] MEDS: aspirin 81 mg EC Tablet PO (08:38)
--- NOTE | 2023-11-02 09:33 | P.PN_ITS ---
Subjective 2 Subjective: Sedated with Precedex on BiPAP this morning but responsive. Seemed more comfortable as far as his breathing. Wanted the BiPAP off. No chest pain. Medications: Reviewed: Yes Vitals/I&O/Wt Last Vital Signs Temp 97.0 F L 11/02/23 04:35 Pulse 76 11/02/23 08:17 Resp 15 11/02/23 08:10 BP 97/68 11/02/23 05:41 Pulse Ox 100 11/02/23 08:13 O2 Del Method BiPAP 11/02/23 08:10 O2 Flow Rate 6 11/01/23 10:40 FiO2 45 11/02/23 08:13 11/01/23 11/02/23 11/02/23 22:59 06:59 14:59 Intake Total 119.731 / 2106.781 72.601 / 2179.382 Output Total 825 / 825 Balance 119.731 / 2106.781 -752.399 / 1354.382 Weight last 48 hrs Weight 58.967 kg Weight 58.967 kg Weight 58.967 kg Weight 61.235 kg Physical Exam 2 Narrative: General exam no distress, on BiPAP Neck is supple Cardiovascular tachycardic, no murmur Lungs markedly diminished breath sounds bilaterally. A few bilateral wheezes Abdomen is soft, no obvious organomegaly. Positive bowel sounds exam [place] Extremities no sinus clubbing edema, cap refill brisk Urinary Catheter Management: [place] Latex: Cath Placed During This Visit: yes Reason for Continuing Indwelling Catheter: Accurate Measurement of Urinary Output in Critically Ill Patients Urinary Catheter Date of Insertion: 11/01/23 Data 11/02/23 04:38 11/02/23 04:38 Other Labs: EF markedly low at 20 to 25% Micro: Microbiology 11/01/23 10:05 Gram Stain - Final Sputum - Expectorated Sputum 11/01/23 10:48 Blood Culture - Preliminary Blood SPECIMEN COLLECTED 11/01/23 09:38 Blood Culture - Preliminary Blood SPECIMEN COLLECTED A&P Assessment and plan (1) Acute respiratory failure with hypoxia and hypercapnia: Patient presents with acute respiratory failure with hypoxemia and hypercapnia, in the setting of severe COPD. Placed on BiPAP Precedex has been used. Will wean as tolerated See notations below under other respiratory conditions. Wean BiPAP as tolerated. CTA does not show pulmonary embolism. It does show evidence of pneumonia in the lower lobes and right middle lobe. Influenza B is positive Significant risk for decompensation, currently on BiPAP, warranting ICU placement and close monitoring. (2) Influenza B: Respiratory panel positive for influenza B. Continue Tamiflu 150 mg twice daily. Plan for 5 days of treatment. (3) Acute exacerbation of chronic obstructive pulmonary disease (COPD): Given dexamethasone in the emergency department. Continue Solu-Medrol 60 mg IV every 12 hours DuoNeb every 4 hours Budesonide twice daily (4) Elevated brain natriuretic peptide (BNP) level: BNP is elevated. Echocardiogram demonstrates markedly low EF Troponin high on admission and decreasing Received Lasix 20 mg IV x 1 yesterday and fluid was stopped Does not appear fluid overloaded today secondary to markedly low EF, Elevated troponin and cardiology consult will be obtained Aspirin initiated Statin initiated Did not give full dose anticoagulation secondary to history of astrocytoma, and seizure disorder with chance for intracranial hemorrhage (5) Elevated troponin: See above (6) History of brain tumor: Patient with history of brain tumor and seizure disorder. Continue Keppra and Tegretol. Tegretol level was checked and not elevated seizure precautions. (7) Bladder cancer: Followed in [place] Qualifiers: Bladder location: overlapping sites Qualified Code(s): C67.8 - Malignant neoplasm of overlapping sites of bladder (8) Hyperglycemia: Hemoglobin A1c not elevated (9) Pneumonia: Concern of bacterial pneumonia Sputum culture MRSA PCR Levaquin 750 mg IV every 24 hours Plan Multiple other medical problems as outlined in past medical history Full code currently Lovenox for DVT prophylaxis Attestations 2 Medical Necessity Statement*: Requires continued hospitalization for IV steroids secondary to COPD exacerbation, evaluation of markedly low EF, continue supportive breathing with BiPAP and potential continued use of Precedex through the day. Precedex is a potentially hazardous medicine that requires close monitoring. Diagnoses Acute respiratory failure with hypoxia and hypercapnia J96.01; J96.02 Influenza B J10.1 Acute exacerbation of chronic obstructive pulmonary disease (COPD) J44.1 Elevated brain natriuretic peptide (BNP) level R79.89 Elevated troponin R79.89 History of brain tumor Z87.898 Malignant neoplasm of overlapping sites of bladder C67.8 Bladder location: overlapping sites Hyperglycemia R73.9 Pneumonia J18.9 Time Spent (min) 32
[2023-11-02] MEDS: levofloxacin-dextrose 5 % 750 MG/150 ML PREMIX 100 MG IV (10:21)
--- NOTE | 2023-11-02 13:42 | P.CONIM_ITS ---
Providers/Reason For Consult 2 Consulting Physician/Specialty*: Cardiovascular medicine Reason for Consult*: Cardiomyopathy Requesting Physician: José Luis Attending Physician: Bart Ordonez MD Primary Care Provider: Joshua Casiano DO History of Present Illness History of Present Illness Axel Duran is a 62 year old male with no previous known history of heart disease who has several chronic serious medical problems. 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 He still gets periodic cystoscopies with intra urinary bladder treatment for the cancer. He did not chemotherapy by mouth from several years for the brain cancer but that is no longer being treated apparently. He was admitted in the last day or so with weakness and shortness of breath. He has been diagnosed with pneumonia and is being treated with antibiotics. He is also requiring continuous BiPAP therapy. His influenza B test is positive. His troponins are elevated 195, 155 and 113. His echo revealed an ejection fraction of somewhere near 20%. It is globally hypokinetic. His states that he developed a fever at home and was weak and could barely walk. He was originally placed on heparin but that has been discontinued CTA of the chest showed no pulmonary embolism. It did reveal advanced obstructive airways disease. His EKG shows sinus rhythm with T wave inversion in leads V1 through V6. His white blood cell count is 13.2 with a left shift. pO2 69, pCO2 61 and pH 7.27. His creatinine is normal. Glucose is 136. His BNP is almost 9000. He is hypoalbuminemic with a albumin of 3.0. History is difficult to take because he requires continuous BiPAP treatment. He has not had any chest pain. Review of Systems 2 Narrative: Review of systems is difficult because he is on BiPAP. Medications/Allergies Home Medications Medication Instructions Recorded Confirmed Last Taken Type carbamazepine 200 mg 200 mg PO BID 04/05/20 11/01/23 10/31/23 History tablet,extended release,12 hr levetiracetam 1,000 mg tablet 1,500 mg PO BID 04/05/20 11/01/23 10/31/23 History (Keppra) acetaminophen 500 mg tablet 1,000 mg PO Q6H PRN pain 07/29/21 11/01/23 08/02/21 History (Tylenol Extra Strength) ibuprofen 200 mg capsule 400 mg PO Q6H PRN Pain 02/09/22 11/01/23 Unknown History lorazepam 1 mg tablet 1 mg PO TID PRN Anxiety #90 tabs 06/15/23 11/01/23 10/31/23 Rx albuterol sulfate 90 mcg/actuation 2 puff inhalation QID PRN 08/14/23 11/01/23 Unknown Rx aerosol inhaler shortness of breath or wheezing #8.5 grams budesonide 0.5 mg/2 mL suspension 0.5 mg (2 mL) inhalation BID #120 09/27/23 11/01/23 Unknown Rx for nebulization mL formoterol fumarate 20 mcg/2 mL 2 ml inhalation BID #120 mL 09/27/23 11/01/23 Unknown Rx solution for nebulization (Perforomist) ipratropium 0.5 mg-albuterol 3 mg 3 ml inhalation QID PRN wheezing 09/27/23 11/01/23 10/31/23 Rx (2.5 mg base)/3 mL nebulization #180 mL soln revefenacin 175 mcg/3 mL solution 175 mcg (3 mL) inhalation DAILY 09/27/23 11/01/23 Unknown Rx for nebulization (Yupelri) #90 mL tamsulosin 0.4 mg capsule (Flomax) 0.4 mg PO QPM 09/27/23 11/01/23 10/31/23 History fluticasone 100 mcg-salmeterol 50 1 inh inhalation DAILY #60 ea 10/08/23 11/01/23 Unknown Rx mcg/dose blistr powdr for inhalation (Advair Diskus) mirabegron 25 mg tablet,extended 25 mg PO BEDTIME 11/01/23 11/01/23 10/31/23 History release 24 hr (Myrbetriq) Allergies Allergy/AdvReac Type Severity Reaction Status Date / Time No Known Allergies Allergy Verified 09/27/23 10:50 Current Medications Generic Name Dose Route Start Last Admin Trade Name Freq PRN Reason Stop Dose Admin Albuterol/Ipratropium 3 ml 11/02/23 08:00 11/02/23 11:28 Ipratropium-Albuterol 3 Ml Neb INHALATION 3 ml Q4H.RESPIRATORY JOSE Administration Aspirin 81 mg 11/02/23 09:00 11/02/23 08:38 Aspirin 81 Mg Ec Tablet PO 81 mg DAILY JOSE Administration Atorvastatin Calcium 40 mg 11/01/23 21:00 11/01/23 20:20 Atorvastatin 40 Mg Tablet PO 40 mg BEDTIME JOSE Administration Budesonide 0.5 mg 11/01/23 20:00 11/02/23 08:10 Budesonide 0.5 Mg/2 Ml Neb INHALATION 0.5 mg BID.RESPIRATORY JOSE Administration Carbamazepine 200 mg 11/01/23 19:00 11/02/23 08:38 Carbamazepine Xr (12 Hr) 200 Mg Tablet PO 200 mg BID JOSE Administration Enoxaparin Sodium 40 mg 11/01/23 20:15 11/01/23 20:20 Enoxaparin 40 Mg/0.4 Ml Syringe SUBCUT 40 mg Q24H JOSE Administration Dexmedetomidine/Sodium Chloride 400 mcg in 100 mls @ 0 mls/hr 11/01/23 15:15 11/02/23 02:54 Precedex IV 0.6 mcg/kg/hr .Q0M JOSE 9.19 mls/hr Administration Protocol Per Protocol Levofloxacin/Dextrose 750 mg in 150 mls @ 100 mls/hr 11/02/23 10:00 11/02/23 12:17 Levaquin-D5w IV Infused Q24H JOSE Infusion Protocol Levetiracetam 1,500 mg 11/01/23 18:00 11/02/23 08:38 Levetiracetam 500 Mg Tablet PO 1,500 mg BID JOSE Administration Lorazepam 1 mg 11/01/23 12:18 11/01/23 13:14 Lorazepam 1 Mg Tablet PO 1 mg TID PRN Administration Anxiety Methylprednisolone Sodium Succinate 60 mg 11/01/23 18:00 11/02/23 05:39 Methylprednisolone Sod Succ 125 Mg/2 Ml Inj IVP 60 mg Q12H JOSE Administration Non-Formulary Medication 25 mg 11/01/23 21:00 11/01/23 21:44 Mirabegron [Myrbetriq] PO Not Given BEDTIME JOSE Oseltamivir Phosphate 75 mg 11/01/23 12:20 11/02/23 08:38 Oseltamivir Phosphate 75 Mg Capsule PO 75 mg BID JOSE Administration Tamsulosin HCl 0.4 mg 11/01/23 18:00 11/01/23 19:07 Tamsulosin 0.4 Mg Capsule PO 0.4 mg QPM JOSE Administration PFSH Acute 2 PFSH: Medical History (Updated 11/02/23 @ 13:49 by Eduardo Singh MD) Cardiomyopathy Bladder cancer History of brain tumor 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 6 months Colbert Glioma of brain Seizure Anxiety Surgical History H/O transurethral destruction of bladder lesion History of removal of cyst History of hernia surgery Family History Father , AT AGE 82 , sudden, cause unknown Mother , IN LATE 70'S Stroke Social History Smoking and tobacco/nicotine status: former use of tobacco/nicotine Quit status (tobacco/nicotine): has quit using Year quit tobacco: October 1999 Former quit date comment: 2-3 ppd X 30 years Alcohol intake: never Substance/Drug Use: never Marital status: Current occupational status: disabled Vitals/I&O/Wt Last Vital Signs Temp 97 F L 11/02/23 10:25 Pulse 84 11/02/23 13:35 Resp 19 H 11/02/23 13:35 BP 102/73 11/02/23 13:35 Pulse Ox 98 11/02/23 13:35 O2 Del Method BiPAP 11/02/23 13:35 O2 Flow Rate 4 11/02/23 08:00 FiO2 40 11/02/23 11:29 11/01/23 11/02/23 11/02/23 22:59 06:59 14:59 Intake Total 119.731 / 2106.781 72.601 / 2179.382 390 / 390 Output Total 825 / 825 Balance 119.731 / 2106.781 -752.399 / 1354.382 390 / 390 Weight last 48 hrs Weight 130 lb Weight 130 lb Weight 130 lb Weight 135 lb Physical Exam 2 Narrative: GENERAL: In general he is very short of breath on a BiPAP mask. He sitting upright to breathe. HEENT: Exam within normal limits. NECK: Supple without jugular vein distention. The carotid upstroke is normal without bruits. BACK: Exam normal. LUNGS: Decreased breath sounds. Prolonged expiratory phase. Wheezes. Barrel chested HEART: Regular rate and rhythm. ABDOMEN: Benign without organomegaly or tenderness. EXTREMITIES: No edema. NEUROLOGIC: Exam normal. SKIN: Unremarkable. Urinary Catheter Management: Larson Latex: Cath Placed During This Visit: yes Reason for Continuing Indwelling Catheter: Accurate Measurement of Urinary Output in Critically Ill Patients Urinary Catheter Date of Insertion: 11/01/23 Data 11/02/23 04:38 11/02/23 04:38 Micro: Microbiology 11/01/23 10:48 Blood Culture - Preliminary Blood NEGATIVE TO DATE 11/01/23 09:38 Blood Culture - Preliminary Blood NEGATIVE TO DATE 11/01/23 10:05 Gram Stain - Final Sputum - Expectorated Sputum A&P Assessment and plan (1) Ex-smoker for more than 1 year: (2) Elevated brain natriuretic peptide (BNP) level: (3) Elevated troponin: (4) Anxiety: (5) Hyperglycemia: (6) Glioma of brain: (7) History of brain tumor: (8) Acute exacerbation of chronic obstructive pulmonary disease (COPD): (9) On supplemental oxygen by nasal cannula: (10) COPD (chronic obstructive pulmonary disease): Qualifiers: COPD type: unspecified COPD Qualified Code(s): J44.9 - Chronic obstructive pulmonary disease, unspecified (11) Pneumonia: (12) Cardiomyopathy: Plan Under ideal circumstances he be a candidate for angiography but at this point he is too ill to proceed. He cannot lie down in panics from shortness of breath when trying to lie flat or even at an angle. I am not sure he would be a candidate for a defibrillator. An echo will have to be repeated in approximately 90 days to sort that out. I would not make any attempt at doing a chemical stress test due to his underlying severe lung disease. I think if we do anything it would be a cardiac catheterization however at this point he is too ill to proceed. I would treat him medically and see how he does. He certainly would never be a candidate for open heart surgery with his underlying lung disease and his other comorbidities. I doubt this is coronary artery disease however. and Moderate Time for a total of 40 minutes, includes reviewing past or interval history, examining/interviewing patient, counseling patient/family/other support, updating patient/family/other support, discussing plan of care with staff, communicating with other healthcare providers and documenting encounter Diagnoses Ex-smoker for more than 1 year Z87.891 Elevated brain natriuretic peptide (BNP) level R79.89 Elevated troponin R79.89 Anxiety F41.9 Hyperglycemia R73.9 Glioma of brain C71.9 History of brain tumor Z87.898 Acute exacerbation of chronic obstructive pulmonary disease (COPD) J44.1 On supplemental oxygen by nasal cannula Z78.9 Chronic obstructive pulmonary disease, unspecified COPD type J44.9 COPD type: unspecified COPD Pneumonia J18.9 Cardiomyopathy I42.9
[2023-11-02] MEDS: LORazepam 1 mg Tablet PO (14:58)
[2023-11-02] MEDS: tamsulosin 0.4 mg Capsule 0.400000000000000022 MG PO (17:11)
[2023-11-02] MEDS: enoxaparin 40 mg/0.4 mL Syringe SUBCUT (20:06)
[2023-11-02] MEDS: atorvastatin 40 mg Tablet PO (20:06)
[2023-11-03] VITALS (39 sets, daily range): BP systolic 97–141; BP diastolic 60–86; PULSE 92–117; RESP 14–24; TEMP 36.8–37.1; O2SAT 89–99; BMI 19.8
[2023-11-03] MEDS: ipratropium-albuterol 3 mL Neb INHALATION ×6 (00:11→20:08)
[2023-11-03] MEDS: LORazepam 1 mg Tablet PO ×2 (05:20→20:42)
[2023-11-03] MEDS: methylPREDNISolone sod succ 125 mg/2 mL INJ 60 MG IVP ×2 (05:21→17:31)
[2023-11-03 06:12] LABS: Basophils % 0.1 %; Hematocrit 39.4 % (37-53); Lymphocytes # 0.4 10^3/uL (0.8-4.8); Lymphocytes % 3.4 %; Mean Corpuscular HGB Conc 31.7 g/dL (30-55); Mean Corpuscular Hemoglobin 30.3 pg (27-33); Mean Corpuscular Volume 95.6 fl (82-101); Mean Platelet Volume 10.9 fL (7.4-10.4); Monocytes # 0.7 10^3/uL (0.2-0.9); Monocytes % 5.8 %; Neutrophils # 10.93 10^3/uL (1.8-7.7); Neutrophils % 90.2 %; Nucleated Red Blood Cells % 0 %; Platelet Count 263 10^3/cmm (157-399); Red Blood Count 4.12 10^6/uL (3.85-5.65); White Blood Count 12.11 10^3/uL (3.29-11.43)
[2023-11-03 06:36] LABS: Anion Gap 11.1 (5-19); Blood Urea Nitrogen 26 mg/dL (8-23); Calcium 8.7 mg/dL (8.5-10.5); Carbon Dioxide 34 mmol/L (22-29); Chloride 96 mmol/L (98-107); Creatinine Clr Calc Pharmacy 119.1789; Glomerular Filtration Rate 136.5 mL/min (90-130); Glucose 136 mg/dL (65-115); Osmolality Calculated 291 mOsm/kg (285-295); Potassium 4.1 mmol/L (3.5-5.1); Sodium 137 mmol/L (136-145)
--- NOTE | 2023-11-03 08:19 | PM.PN ---
Subjective Subjective: Axel seems better today. He is out of bed sitting in a chair eating breakfast. He is able to carry on a conversation today where yesterday he was unable to do so due to his shortness of breath. He told me that if he had to he could lie flat in the bed. Vitals/I&O/Wt Last Vital Signs Temp 98.4 F 11/03/23 05:54 Pulse 96 11/03/23 06:00 Resp 20 H 11/03/23 06:00 BP 121/74 11/03/23 06:00 Pulse Ox 94 11/03/23 06:00 O2 Del Method Nasal Cannula 11/03/23 06:00 O2 Flow Rate 4 11/03/23 06:00 FiO2 40 11/03/23 04:18 11/02/23 11/03/23 11/03/23 22:59 06:59 14:59 Intake Total 300 / 907.414 400 / 1307.414 Output Total 650 / 650 750 / 1400 Balance -350 / 257.414 -350 / -92.586 Weight last 48 hrs Weight 130 lb Weight 130 lb Weight 130 lb Weight 135 lb Physical Exam Narrative: GENERAL: In general he is still short of breath at rest but able to carry on a conversation HEENT: Exam within normal limits. NECK: Supple without jugular vein distention. The carotid upstroke is normal without bruits. BACK: Exam normal. LUNGS: Decreased breath sounds. Increased expiratory phase. Scattered wheezes. HEART: Regular rate and rhythm. ABDOMEN: Benign without organomegaly or tenderness. EXTREMITIES: No edema. NEUROLOGIC: Exam normal. SKIN: Unremarkable. Urinary Catheter Management: Larson Latex: Cath Placed During This Visit: yes Reason for Continuing Indwelling Catheter: Accurate Measurement of Urinary Output in Critically Ill Patients Urinary Catheter Date of Insertion: 11/01/23 Data 11/03/23 04:29 11/03/23 04:29 Micro: Microbiology 11/01/23 10:05 Gram Stain - Final Sputum - Expectorated Sputum Sputum Culture - Preliminary 11/01/23 10:48 Blood Culture - Preliminary Blood NEGATIVE TO DATE 11/01/23 09:38 Blood Culture - Preliminary Blood NEGATIVE TO DATE A&P Assessment and plan (1) Ex-smoker for more than 1 year: (2) Elevated brain natriuretic peptide (BNP) level: (3) Elevated troponin: (4) Cardiomyopathy: (5) Anxiety: (6) Weight loss: (7) Hyperglycemia: (8) History of brain tumor: (9) Glioma of brain: (10) Bladder cancer: Qualifiers: Bladder location: overlapping sites Qualified Code(s): C67.8 - Malignant neoplasm of overlapping sites of bladder (11) COPD (chronic obstructive pulmonary disease): Qualifiers: COPD type: unspecified COPD Qualified Code(s): J44.9 - Chronic obstructive pulmonary disease, unspecified Plan The dilemma here is how to move forward. He has a malignant brain tumor and bladder cancer. He also has end-stage COPD. Question is whether he would be a candidate for a defibrillator. He would certainly never be a candidate for open heart surgery. I think this is going to turnstile collector to be a nonischemic cardiomyopathy. He is improved today but not quite well enough to undergo angiography. I will reassess again tomorrow and see how he wants to proceed. His blood pressure is improved and had previously been somewhat soft so we have been unable to add back any cardiac medications such as afterload reducing agents. We will try some of those today and see how he does. Attestations Medical Necessity Statement*: Hospitalization for heart failure, COPD exacerbation and Moderate Time for a total of 40 minutes, includes reviewing past or interval history, examining/interviewing patient, placing orders, counseling patient/family/other support, updating patient/family/other support, discussing plan of care with staff, communicating with other healthcare providers and documenting encounter Diagnoses Ex-smoker for more than 1 year Z87.891 Elevated brain natriuretic peptide (BNP) level R79.89 Elevated troponin R79.89 Cardiomyopathy I42.9 Anxiety F41.9 Weight loss R63.4 Hyperglycemia R73.9 History of brain tumor Z87.898 Glioma of brain C71.9 Malignant neoplasm of overlapping sites of bladder C67.8 Bladder location: overlapping sites Chronic obstructive pulmonary disease, unspecified COPD type J44.9 COPD type: unspecified COPD
[2023-11-03] MEDS: aspirin 81 mg EC Tablet PO (08:42)
[2023-11-03] MEDS: carBAMazepine XR (12 HR) 200 mg Tablet PO ×2 (08:42→17:31)
[2023-11-03] MEDS: levETIRAcetam 500 mg Tablet 1500 MG PO ×2 (08:42→17:31)
[2023-11-03] MEDS: metoprolol tartrate 25 mg Tablet 12.5 MG PO ×2 (08:43→17:32)
[2023-11-03] MEDS: oseltamivir phosphate 75 mg Capsule PO ×2 (08:43→17:31)
[2023-11-03] MEDS: budesonide 0.5 mg/2 mL Neb INHALATION ×2 (09:12→20:08)
--- NOTE | 2023-11-03 09:57 | P.PN_ITS ---
Subjective 2 Subjective: Patient was on 5 L nasal cannula this morning which was transitioned to 4 L Sitting in a chair Eating breakfast Feeling slightly better Mild conversational dyspnea Patient was asking what his coronary angiogram Spoke with Dr. Singh this morning as well Patient is afebrile Tachycardia noted Vitals/I&O/Wt Last Vital Signs Temp 98.4 F 11/03/23 05:54 Pulse 108 H 11/03/23 09:16 Resp 16 11/03/23 09:00 BP 133/85 11/03/23 08:00 Pulse Ox 97 11/03/23 09:00 O2 Del Method Nasal Cannula 11/03/23 09:00 O2 Flow Rate 4 11/03/23 09:00 FiO2 40 11/03/23 04:18 11/02/23 11/03/23 11/03/23 22:59 06:59 14:59 Intake Total 300 / 907.414 400 / 1307.414 480 / 480 Output Total 650 / 650 750 / 1400 Balance -350 / 257.414 -350 / -92.586 480 / 480 Weight last 48 hrs Weight 58.967 kg Weight 58.967 kg Weight 58.967 kg Physical Exam 2 Narrative: Mild signs of fluid overload Abdomen soft Currently on 4 L GCS 15 Eating breakfast Nonfocal neuroexam Pleasant cooperative Larson catheter in place Urinary Catheter Management: Larson Latex: Cath Placed During This Visit: yes Reason for Continuing Indwelling Catheter: Accurate Measurement of Urinary Output in Critically Ill Patients Urinary Catheter Date of Insertion: 11/01/23 Data 11/03/23 04:29 11/03/23 04:29 Micro: Microbiology 11/01/23 10:05 Gram Stain - Final Sputum - Expectorated Sputum Sputum Culture - Preliminary 11/01/23 10:48 Blood Culture - Preliminary Blood NEGATIVE TO DATE 11/01/23 09:38 Blood Culture - Preliminary Blood NEGATIVE TO DATE A&P Assessment and plan (1) Anxiety: (2) Cardiomyopathy: (3) Weight loss: (4) Glioma of brain: (5) History of brain tumor: (6) Bladder cancer: Qualifiers: Bladder location: overlapping sites Qualified Code(s): C67.8 - Malignant neoplasm of overlapping sites of bladder (7) Influenza B: (8) Arthritis: (9) COPD (chronic obstructive pulmonary disease): Qualifiers: COPD type: unspecified COPD Qualified Code(s): J44.9 - Chronic obstructive pulmonary disease, unspecified (10) Acute respiratory failure with hypoxia and hypercapnia: (11) Acute exacerbation of chronic obstructive pulmonary disease (COPD): (12) Pneumonia: (13) Fatigue: Plan COPD exacerbation Acute hypoxic hypercarbic respite failure Proved BiPAP Continue diuresis Use of nasal cannula in the daytime and BiPAP at night Systolic chf exacerbation: acute IV lasix 20mg today 1 dose influenza B Conservative management Continue Tamiflu Patient has end-stage COPD Significant weight loss Increased work of breathing Continue DuoNeb treatment along steroids Cardiomyopathy EF is reduced Dr. Singh suspecting nonischemic cardiomyopathy Plan for angiogram once he is more stable low dose lasix today History of brain tumor bladder cancer with mets Guarded prognosis Poor functional status Continue antibiotics for community-acquired pneumonia change to doxy and Iv ceftriaxone I will rediscuss goals of care later in the day Blood pressure has been stable today Attestations 2 Medical Necessity Statement*: continue ICU management Diagnoses Anxiety F41.9 Cardiomyopathy I42.9 Weight loss R63.4 Glioma of brain C71.9 History of brain tumor Z87.898 Malignant neoplasm of overlapping sites of bladder C67.8 Bladder location: overlapping sites Influenza B J10.1 Arthritis M19.90 Chronic obstructive pulmonary disease, unspecified COPD type J44.9 COPD type: unspecified COPD Acute respiratory failure with hypoxia and hypercapnia J96.01; J96.02 Acute exacerbation of chronic obstructive pulmonary disease (COPD) J44.1 Pneumonia J18.9 Fatigue R53.83
[2023-11-03] MEDS: FUROsemide 10 mg/mL SDV 2mL 20 MG IVP (10:35)
[2023-11-03] MEDS: tamsulosin 0.4 mg Capsule 0.400000000000000022 MG PO (17:32)
--- NOTE | 2023-11-03 18:49 | PC.NURSE ---
Overall uneventful shift. Patient remained up to chair for majority of day shift, NC at 3L. Patient transferred to bed standby assist, did report very mild dizziness, oxygen saturation decreased to low 80's, slow to recover to mid 90's. Patient denied pain this shift, did not have a bowel movement. AOX4.
[2023-11-03] MEDS: atorvastatin 40 mg Tablet PO (20:42)
[2023-11-03] MEDS: enoxaparin 40 mg/0.4 mL Syringe SUBCUT (20:42)
[2023-11-04] VITALS (32 sets, daily range): BP systolic 101–139; BP diastolic 67–95; PULSE 94–123; RESP 14–23; TEMP 36.3–37.1; O2SAT 88–98
[2023-11-04] MEDS: ipratropium-albuterol 3 mL Neb INHALATION ×7 (00:29→23:20)
[2023-11-04 05:20] LABS: Basophils % 0.1 %; Hematocrit 41.9 % (37-53); Lymphocytes # 0.6 10^3/uL (0.8-4.8); Lymphocytes % 6.4 %; Mean Corpuscular Hemoglobin 30.3 pg (27-33); Mean Corpuscular Volume 94.8 fl (82-101); Mean Platelet Volume 9.9 fL (7.4-10.4); Monocytes # 0.8 10^3/uL (0.2-0.9); Monocytes % 8.7 %; Neutrophils # 7.63 10^3/uL (1.8-7.7); Neutrophils % 84.1 %; Nucleated Red Blood Cells % 0 %; Platelet Count 324 10^3/cmm (157-399); Red Blood Count 4.42 10^6/uL (3.85-5.65); Red Cell Distribution Width 15.2 % (12.1-15.1); White Blood Count 9.07 10^3/uL (3.29-11.43)
[2023-11-04 05:44] LABS: Magnesium 2.1 mg/dL (1.7-2.3)
[2023-11-04 05:50] LABS: Anion Gap 11.5 (5-19); Blood Urea Nitrogen 23 mg/dL (8-23); Calcium 8.7 mg/dL (8.5-10.5); Carbon Dioxide 36 mmol/L (22-29); Chloride 99 mmol/L (98-107); Creatinine Clr Calc Pharmacy 120.6328; Glomerular Filtration Rate 136.5 mL/min (90-130); Glucose 100 mg/dL (65-115); Osmolality Calculated 298 mOsm/kg (285-295); Potassium 4.5 mmol/L (3.5-5.1); Sodium 142 mmol/L (136-145)
[2023-11-04] MEDS: methylPREDNISolone sod succ 125 mg/2 mL INJ 60 MG IVP ×2 (06:04→17:10)
--- NOTE | 2023-11-04 07:59 | P.PN_ITS ---
Subjective 2 Subjective: Axel is about the same, perhaps slightly more short of breath today than yesterday. He is still able to carry on a conversation but occasionally has to stop to catch his breath. He has no pain. His blood pressure tolerated adding the medications yesterday. Vitals/I&O/Wt Last Vital Signs Temp 98.5 F 11/04/23 04:00 Pulse 94 11/04/23 06:00 Resp 18 11/04/23 06:00 BP 115/78 11/04/23 06:00 Pulse Ox 96 11/04/23 06:00 O2 Del Method BiPAP 11/04/23 03:32 O2 Flow Rate 3 11/03/23 23:00 FiO2 40 11/04/23 03:32 11/03/23 11/04/23 11/04/23 21:59 06:59 14:59 Intake Total Output Total Balance Weight last 48 hrs Weight 125 lb 9.6 oz Weight 125 lb 9.6 oz Weight 134 lb 7 oz Physical Exam 2 Narrative: GENERAL: In general he is mildly short of breath at rest HEENT: Exam within normal limits. NECK: Supple without jugular vein distention. The carotid upstroke is normal without bruits. BACK: Exam normal. LUNGS: Decreased breath sounds, scattered wheezes, increased expiratory phase HEART: Regular rate and rhythm. ABDOMEN: Benign without organomegaly or tenderness. EXTREMITIES: No edema. NEUROLOGIC: Exam normal. SKIN: Unremarkable. Urinary Catheter Management: Larson Latex: Cath Placed During This Visit: yes Reason for Continuing Indwelling Catheter: Accurate Measurement of Urinary Output in Critically Ill Patients Urinary Catheter Date of Insertion: 11/01/23 Data 11/04/23 04:30 11/04/23 04:30 Micro: Microbiology 11/01/23 10:05 Gram Stain - Final Sputum - Expectorated Sputum Sputum Culture - Final A&P Assessment and plan (1) Ex-smoker for more than 1 year: (2) Elevated brain natriuretic peptide (BNP) level: (3) Elevated troponin: (4) Cardiomyopathy: (5) Anxiety: (6) Weight loss: (7) Glioma of brain: (8) History of brain tumor: (9) COPD (chronic obstructive pulmonary disease): Qualifiers: COPD type: unspecified COPD Qualified Code(s): J44.9 - Chronic obstructive pulmonary disease, unspecified Plan I had a long talk with him today about how to proceed. He will need about 90 days for repeat ultrasound to reassess his left ventricular function. I am still somewhat dubious about whether he is a candidate for a defibrillator. He would never be a candidate for open heart surgery. The echo shows global LV function so I am not highly suspicious of angiography revealing significant coronary disease. I think he can probably tolerate the angiogram but I am not sure the information is going to help us at least in the short-term. There is also the consideration of the malignancy in his central nervous system, bladder cancer and end-stage COPD. He is scheduled to have chemotherapy on his bladder on Sunday. After the long conversation today I have decided to hold off on angiography at this point. We can reassess this. I restarted his diet. I will adjust his cardiac medication. Attestations 2 Medical Necessity Statement*: Hospitalization for management of cardiomyopathy, end-stage COPD among others. and Moderate Time for a total of 35 minutes, includes reviewing past or interval history, examining/interviewing patient, placing orders, counseling patient/family/other support, updating patient/family/other support, discussing plan of care with staff and documenting encounter Diagnoses Ex-smoker for more than 1 year Z87.891 Elevated brain natriuretic peptide (BNP) level R79.89 Elevated troponin R79.89 Cardiomyopathy I42.9 Anxiety F41.9 Weight loss R63.4 Glioma of brain C71.9 History of brain tumor Z87.898 Chronic obstructive pulmonary disease, unspecified COPD type J44.9 COPD type: unspecified COPD
[2023-11-04] MEDS: aspirin 81 mg EC Tablet PO (09:11)
[2023-11-04] MEDS: metoprolol tartrate 25 mg Tablet PO ×2 (09:11→17:10)
[2023-11-04] MEDS: LORazepam 1 mg Tablet PO ×2 (09:11→22:31)
[2023-11-04] MEDS: carBAMazepine XR (12 HR) 200 mg Tablet PO ×2 (09:11→17:09)
[2023-11-04] MEDS: lisinopril 2.5 mg Tablet PO (09:11)
[2023-11-04] MEDS: spironolactone 25 mg Tablet 12.5 MG PO (09:11)
[2023-11-04] MEDS: oseltamivir phosphate 75 mg Capsule PO ×2 (09:11→17:10)
[2023-11-04] MEDS: levETIRAcetam 500 mg Tablet 1500 MG PO ×2 (09:12→17:09)
[2023-11-04] MEDS: budesonide 0.5 mg/2 mL Neb INHALATION ×2 (09:32→20:14)
--- NOTE | 2023-11-04 11:49 | P.PN_ITS ---
Subjective 2 Subjective: No plan for angiogram as of yet Diet resumed by Dr. Singh today Patient is stating that he would like to change his goals of care to DNR/DNI I discussed frankly about his low EF, cardiomyopathy and chances of V-fib cardiac arrest, patient does not want to be resuscitated with chest compressions defibrillation or intubation Stating that 2011 he was intubated after a trauma and he did not like that and would not like to repeat the same We discussed his chances of getting extubated are pretty slim as well considering his end-stage COPD He will talk with his as well I have notified the nurse Patient has ability to make decision for himself No active fever Will remove Larson catheter today Continue diuresis Vitals/I&O/Wt Last Vital Signs Temp 98.5 F 11/04/23 04:00 Pulse 102 H 11/04/23 11:12 Resp 16 11/04/23 11:09 BP 128/80 11/04/23 10:00 Pulse Ox 95 11/04/23 11:09 O2 Del Method Nasal Cannula 11/04/23 11:09 O2 Flow Rate 3 11/04/23 11:09 FiO2 40 11/04/23 03:32 11/03/23 11/04/23 11/04/23 21:59 06:59 14:59 Intake Total 120 / 120 Output Total Balance 120 / 120 Weight last 48 hrs Weight 56.971 kg Weight 56.971 kg Weight 60.98 kg Physical Exam 2 Narrative: Mild signs of fluid overload Crackles on lung auscultation Currently on 3 L Blood pressure stable Afebrile Pleasant cough GCS 15 Nonfocal neuroexam Urinary Catheter Management: Larson Latex: Cath Placed During This Visit: yes Reason for Continuing Indwelling Catheter: Accurate Measurement of Urinary Output in Critically Ill Patients Urinary Catheter Date of Insertion: 11/01/23 Data 11/04/23 04:30 11/04/23 04:30 Micro: Microbiology 11/01/23 10:05 Gram Stain - Final Sputum - Expectorated Sputum Sputum Culture - Final A&P Assessment and plan (1) Anxiety: (2) Cardiomyopathy: (3) Weight loss: (4) Glioma of brain: (5) History of brain tumor: (6) Bladder cancer: Qualifiers: Bladder location: overlapping sites Qualified Code(s): C67.8 - Malignant neoplasm of overlapping sites of bladder (7) Influenza B: (8) Arthritis: (9) COPD (chronic obstructive pulmonary disease): Qualifiers: COPD type: unspecified COPD Qualified Code(s): J44.9 - Chronic obstructive pulmonary disease, unspecified (10) Acute respiratory failure with hypoxia and hypercapnia: (11) Acute exacerbation of chronic obstructive pulmonary disease (COPD): (12) Fatigue: Plan Acute COPD exacerbation End-stage COPD Weight loss Conversational dyspnea Functional capacity has reduced as well Patient is requiring anxiolytics with use of BiPAP intermittently Currently on 3 L Exacerbation is also related to influenza B Currently on isolation Afebrile Patient is getting antibiotics for community-acquired pneumonia, changed to doxycycline and IV ceftriaxone Systolic CHF exacerbation Continue Lasix on daily basis Cardiomyopathy, cardiology is suspecting nonischemic cardiomyopathy, candidate for LifeVest? If no plan for angiogram Dr. Ann is not recommending AICD placement related to end-stage COPD and his chances of getting extubated are slim considering poor pulmonary capacity History of bladder and brain tumor History of seizure in the past after trauma Guarded prognosis Increased feeding production: Will use Mucomyst and chest vest therapy today Larson catheter can be removed Patient is anticipating going home but stating that he would like to get something done for his cardiomyopathy Goals of care discussed and changed details in my subjective Attestations 2 Medical Necessity Statement*: Continue ICU management Diagnoses Anxiety F41.9 Cardiomyopathy I42.9 Weight loss R63.4 Glioma of brain C71.9 History of brain tumor Z87.898 Malignant neoplasm of overlapping sites of bladder C67.8 Bladder location: overlapping sites Influenza B J10.1 Arthritis M19.90 Chronic obstructive pulmonary disease, unspecified COPD type J44.9 COPD type: unspecified COPD Acute respiratory failure with hypoxia and hypercapnia J96.01; J96.02 Acute exacerbation of chronic obstructive pulmonary disease (COPD) J44.1 Fatigue R53.83
[2023-11-04] MEDS: FUROsemide 20 mg Tablet PO (12:32)
--- NOTE | 2023-11-04 12:40 | PC.NURSE ---
Contacted Dr. Remy for patient nausea, verbal order for reglan received. See MAR. Patient status update given at that time. Patient is stating she is in pain and moaning, that her back is hurting, refusing PO tylenol, patient repositioned. Family is at bedside. See charted vitals for blood pressures and heart rate and oxygen saturation.
[2023-11-04] MEDS: acetylcysteine 200 mg/mL MDV 10 mL INHALATION ×3 (16:18→23:21)
[2023-11-04] MEDS: tamsulosin 0.4 mg Capsule 0.400000000000000022 MG PO (17:10)
--- NOTE | 2023-11-04 18:00 | PC.NURSE ---
Overall uneventful shift. Patient remained up to chair for majority of day shift, NC at 3L. Patient transferred to bed and commode standby assist, did report mild dizziness, oxygen saturation decreased to low 80's, recovered to low 90's. Patient denied pain this shift, did have one bowel movement. Worked with physical therapy, SR frequent PVCs, BP remained stable. See charted vitals. Larson catheter removed without complications, patient has voided in urinal. AOX4. Updates given to X2 via phone, patient also spoke with via telephone regarding code status change.
[2023-11-04] MEDS: atorvastatin 40 mg Tablet PO (20:14)
[2023-11-04] MEDS: calcium carbonate 500 mg Chew Tablet PO (20:14)
[2023-11-04] MEDS: enoxaparin 40 mg/0.4 mL Syringe SUBCUT (20:22)
[2023-11-05] VITALS (37 sets, daily range): BP systolic 84–131; BP diastolic 60–88; PULSE 108–139; RESP 15–26; TEMP 36.2–37.4; O2SAT 84–99
[2023-11-05 03:56] LABS: Basophils % 0.1 %; Lymphocytes # 0.7 10^3/uL (0.8-4.8); Lymphocytes % 5.3 %; Mean Corpuscular HGB Conc 32.2 g/dL (30-55); Mean Corpuscular Hemoglobin 30.1 pg (27-33); Mean Corpuscular Volume 93.5 fl (82-101); Mean Platelet Volume 10.1 fL (7.4-10.4); Monocytes # 1.1 10^3/uL (0.2-0.9); Monocytes % 8.7 %; Neutrophils # 11.03 10^3/uL (1.8-7.7); Neutrophils % 85.1 %; Nucleated Red Blood Cells % 0 %; Platelet Count 418 10^3/cmm (157-399); Red Blood Count 4.92 10^6/uL (3.85-5.65); Red Cell Distribution Width 15.1 % (12.1-15.1); White Blood Count 12.95 10^3/uL (3.29-11.43)
[2023-11-05 04:27] LABS: Anion Gap 12.5 (5-19); Blood Urea Nitrogen 27 mg/dL (8-23); Calcium 9.1 mg/dL (8.5-10.5); Carbon Dioxide 35 mmol/L (22-29); Chloride 96 mmol/L (98-107); Creatinine Clr Calc Pharmacy 102.8643; Glomerular Filtration Rate 136.5 mL/min (90-130); Glucose 98 mg/dL (65-115); Osmolality Calculated 293 mOsm/kg (285-295); Potassium 4.5 mmol/L (3.5-5.1); Sodium 139 mmol/L (136-145)
[2023-11-05] MEDS: ipratropium-albuterol 3 mL Neb INHALATION ×6 (05:07→23:35)
[2023-11-05] MEDS: acetylcysteine 200 mg/mL MDV 10 mL INHALATION ×6 (05:08→23:35)
[2023-11-05] MEDS: methylPREDNISolone sod succ 125 mg/2 mL INJ 60 MG IVP (06:28)
[2023-11-05] MEDS: budesonide 0.5 mg/2 mL Neb INHALATION ×2 (07:32→20:12)
[2023-11-05] MEDS: levETIRAcetam 500 mg Tablet 1500 MG PO (09:17)
[2023-11-05] MEDS: lisinopril 2.5 mg Tablet PO (09:17)
[2023-11-05] MEDS: aspirin 81 mg EC Tablet PO (09:17)
[2023-11-05] MEDS: oseltamivir phosphate 75 mg Capsule PO (09:18)
[2023-11-05] MEDS: carBAMazepine XR (12 HR) 200 mg Tablet PO (09:18)
[2023-11-05] MEDS: FUROsemide 20 mg Tablet PO (09:18)
[2023-11-05] MEDS: metoprolol tartrate 25 mg Tablet PO (09:18)
--- NOTE | 2023-11-05 09:18 | P.PN_ITS ---
Subjective 2 Subjective: Axel spoke with the hospitalist yesterday and made himself a DNR. Overnight he has developed tachycardia and slightly more short of breath. He states that he cannot do very much including eat without becoming more short of breath. This morning his heart rates 145 and the rhythm appears to be atrial fibrillation though there could be sinus tachycardia with PACs on occasion. He states that he is very anxious and short of breath this morning. His white blood cells are little slightly higher this morning as is his platelet count. Creatinine remains normal Vitals/I&O/Wt Last Vital Signs Temp 97.2 F L 11/05/23 04:00 Pulse 130 H 11/05/23 07:31 Resp 17 11/05/23 07:15 BP 124/83 11/05/23 07:00 Pulse Ox 90 11/05/23 07:30 O2 Del Method BiPAP 11/05/23 07:15 O2 Flow Rate 3 11/04/23 20:19 FiO2 40 11/05/23 07:30 11/04/23 11/05/23 11/05/23 22:59 06:59 14:59 Intake Total 320 / 560 0 / 560 Output Total 380 / 1180 400 / 1580 Balance -60 / -620 -400 / -1020 Weight last 48 hrs Weight 125 lb 9.6 oz Weight 125 lb 9.6 oz Weight 134 lb 7 oz Physical Exam 2 Narrative: GENERAL: In general he is short of breath at rest sitting upright HEENT: Exam within normal limits. NECK: Supple without jugular vein distention. The carotid upstroke is normal without bruits. BACK: Exam normal. LUNGS: Decreased breath sounds, increased expiratory phase with scattered wheezes HEART: Regular rate and rhythm. ABDOMEN: Benign without organomegaly or tenderness. EXTREMITIES: No edema. NEUROLOGIC: Exam normal. SKIN: Unremarkable. Urinary Catheter Management: Larson Latex: Cath Placed During This Visit: yes, but has since been removed by the nurse Reason for Continuing Indwelling Catheter: Decision to DC Catheter Urinary Catheter Date of Insertion: 11/01/23 Date Urinary Catheter Removed: 11/04/23 Time Urinary Catheter Discontinued: 14:35 Data 11/05/23 03:10 11/05/23 03:10 A&P Assessment and plan (1) Elevated troponin: (2) Elevated brain natriuretic peptide (BNP) level: (3) Cardiomyopathy: (4) Anxiety: (5) History of brain tumor: (6) Bladder cancer: Qualifiers: Bladder location: overlapping sites Qualified Code(s): C67.8 - Malignant neoplasm of overlapping sites of bladder (7) COPD (chronic obstructive pulmonary disease): Qualifiers: COPD type: unspecified COPD Qualified Code(s): J44.9 - Chronic obstructive pulmonary disease, unspecified Plan He remains quite ill. I do not think angiography is going to help us right now. We will see how he does over the next couple of days. Attestations 2 Medical Necessity Statement*: Hospitalization for management of end-stage COPD and Moderate Time for a total of 30 minutes, includes reviewing past or interval history, examining/interviewing patient, counseling patient/family/other support, updating patient/family/other support, discussing plan of care with staff, communicating with other healthcare providers and documenting encounter Diagnoses Elevated troponin R79.89 Elevated brain natriuretic peptide (BNP) level R79.89 Cardiomyopathy I42.9 Anxiety F41.9 History of brain tumor Z87.898 Malignant neoplasm of overlapping sites of bladder C67.8 Bladder location: overlapping sites Chronic obstructive pulmonary disease, unspecified COPD type J44.9 COPD type: unspecified COPD
[2023-11-05] MEDS: spironolactone 25 mg Tablet 12.5 MG PO (09:19)
--- NOTE | 2023-11-05 10:06 | P.PN_ITS ---
Subjective 2 Subjective: Seen this morning. Has been tachycardic. Metoprolol 25 twice daily is ordered along with lorazepam however he has not received his morning dose this morning. Patient states he feels very anxious and worried. He states he has got a lot of stressors at home. He also feels somewhat depressed. He is not suicidal. He states he used to be able to walk in the yard however cannot do that anymore. He is unable to do anything anymore for himself. He talks about having brain tumor and COPD. Denies shortness of breath or chest pain at this time. Vitals/I&O/Wt Last Vital Signs Temp 97.2 F L 11/05/23 04:00 Pulse 130 H 11/05/23 07:31 Resp 17 11/05/23 07:15 BP 124/83 11/05/23 07:00 Pulse Ox 90 11/05/23 07:30 O2 Del Method BiPAP 11/05/23 07:15 O2 Flow Rate 3 11/04/23 20:19 FiO2 40 11/05/23 07:30 11/04/23 11/05/23 11/05/23 22:59 06:59 14:59 Intake Total 320 / 560 0 / 560 Output Total 380 / 1180 400 / 1580 Balance -60 / -620 -400 / -1020 Weight last 48 hrs Weight 56.971 kg Weight 56.971 kg Weight 60.98 kg Physical Exam 2 Narrative: Appears slightly short of breath. Currently on 3 L Blood pressure stable Afebrile Pleasant cough GCS 15 Nonfocal neuroexam Lungs, scattered wheezes, mild rhonchi at bases. Abdomen soft nontender Appears anxious Urinary Catheter Management: Larson Latex: Cath Placed During This Visit: yes, but has since been removed by the nurse Reason for Continuing Indwelling Catheter: Decision to DC Catheter Urinary Catheter Date of Insertion: 11/01/23 Date Urinary Catheter Removed: 11/04/23 Time Urinary Catheter Discontinued: 14:35 Data 11/05/23 03:10 11/05/23 03:10 A&P Assessment and plan (1) Anxiety: (2) Cardiomyopathy: (3) Weight loss: (4) Glioma of brain: (5) History of brain tumor: (6) Bladder cancer: Qualifiers: Bladder location: overlapping sites Qualified Code(s): C67.8 - Malignant neoplasm of overlapping sites of bladder (7) Influenza B: (8) Arthritis: (9) COPD (chronic obstructive pulmonary disease): Qualifiers: COPD type: unspecified COPD Qualified Code(s): J44.9 - Chronic obstructive pulmonary disease, unspecified (10) Acute respiratory failure with hypoxia and hypercapnia: (11) Acute exacerbation of chronic obstructive pulmonary disease (COPD): (12) Fatigue: Plan Acute COPD exacerbation End-stage COPD, severe emphysema Weight loss Conversational dyspnea Functional capacity has reduced as well Patient is requiring anxiolytics with use of BiPAP intermittently Currently on 3 L Exacerbation is also related to influenza B. Completed 5 days of Tamiflu Currently on isolation Afebrile Patient is getting antibiotics for community-acquired pneumonia, changed to doxycycline and IV ceftriaxone. Will continue to complete the course. Systolic CHF exacerbation Continue Lasix on daily basis .Hold lasix today Cardiomyopathy, cardiology is suspecting nonischemic cardiomyopathy, candidate for LifeVest? If no plan for angiogram Dr. Singh is not recommending AICD placement related to end-stage COPD and his chances of getting extubated are slim considering poor pulmonary capacity Sinus tachycardia ? Possible component of anxiety ? Continue on lorazepam 1 mg 3 times daily ?Continue metoprolol 25 twice daily _ Order 250 cc NS bolus History of bladder and brain tumor History of seizure in the past after trauma Guarded prognosis Increased feeding production: Will use Mucomyst and chest vest therapy today Larson catheter can be removed DNR/DNI Attestations 2 Medical Necessity Statement*: Hospitalization for management of end-stage COPD Diagnoses Anxiety F41.9 Cardiomyopathy I42.9 Weight loss R63.4 Glioma of brain C71.9 History of brain tumor Z87.898 Malignant neoplasm of overlapping sites of bladder C67.8 Bladder location: overlapping sites Influenza B J10.1 Arthritis M19.90 Chronic obstructive pulmonary disease, unspecified COPD type J44.9 COPD type: unspecified COPD Acute respiratory failure with hypoxia and hypercapnia J96.01; J96.02 Acute exacerbation of chronic obstructive pulmonary disease (COPD) J44.1 Fatigue R53.83
[2023-11-05] MEDS: methylPREDNISolone sod succ 125 mg/2 mL INJ 40 MG IVP ×2 (12:41→21:24)
[2023-11-05] MEDS: sodium chloride 0.9% 250 ML IV (12:42)
--- NOTE | 2023-11-05 14:44 | PC.SOCIAL ---
IMM Update pg 2 of IMM updated and reviewed w/ patient and his . Copy provided and copy dated, initialed and placed in chart.
[2023-11-05 14:45] LABS: Methicillin-Resist S.aureu PCR NOT DETECTED (NOT DETECTED)
--- NOTE | 2023-11-05 18:13 | CTR_ITS ---
PROCEDURE INFORMATION: Exam: CT Head Without Contrast Exam date and time: 11/06/2023 1:19 AM Age: 62 years old Clinical indication: Other: Beuro; Additional info: Neuro TECHNIQUE: Imaging protocol: Computed tomography of the head without contrast. Radiation optimization: All CT scans at this facility use at least one of these dose optimization techniques: automated exposure control; mA and/or kV adjustment per patient size (includes targeted exams where dose is matched to clinical indication); or iterative reconstruction. COMPARISON: No relevant prior studies available. RADIATION DOSE METRICS: Total DLP (mGy-cm): 1056.15 FINDINGS: Brain: Small bandlike area lateral anterior right temporal lobe encephalomalacia. No hemorrhage. Unremarkable white matter. No mass effect. Cerebral ventricles: No ventriculomegaly. Paranasal sinuses: Visualized sinuses are unremarkable. No fluid levels. Mastoid air cells: Visualized mastoid air cells are well aerated. Bones/joints: Unremarkable. No acute fracture. Unremarkable right temporal craniotomy. Soft tissues: Unremarkable. CT/CT head wo con* [id number] IMPRESSION: No acute intracranial abnormality.
--- NOTE | 2023-11-05 20:42 | PC.NURSE ---
Patient is NPO 2100 PO meds not given for this reason
[2023-11-05] MEDS: enoxaparin 40 mg/0.4 mL Syringe SUBCUT (21:23)
[2023-11-06] VITALS (19 sets, daily range): BP systolic 92–118; BP diastolic 57–79; PULSE 94–122; RESP 17–21; TEMP 36.4–37.5; O2SAT 89–96; BMI 17.7
[2023-11-06] MEDS: metoprolol tartrate 25 mg Tablet PO ×3 (00:18→16:59)
--- NOTE | 2023-11-06 01:44 | PC.NURSE ---
Patient heart rate was 130-140, Patient had not had [address] Fitzgerald was notified and gave order to give PO metoprolol 25mg. Order was placed and was administered crushed with one spoon of pudding per dr auguste.
--- NOTE | 2023-11-06 03:54 | PC.NURSE ---
Diet changed to pureed diet for now per Dr Fitzgerald.
[2023-11-06] MEDS: acetylcysteine 200 mg/mL MDV 10 mL INHALATION ×5 (03:58→19:50)
[2023-11-06] MEDS: ipratropium-albuterol 3 mL Neb INHALATION ×5 (03:58→19:50)
[2023-11-06 05:50] LABS: Basophils # 0.1 10^3/uL (0.0-0.1); Basophils % 0.2 %; Hematocrit 46.5 % (37-53); Lymphocytes # 0.4 10^3/uL (0.8-4.8); Lymphocytes % 1.8 %; Mean Corpuscular HGB Conc 32.3 g/dL (30-55); Mean Corpuscular Hemoglobin 30.2 pg (27-33); Mean Corpuscular Volume 93.6 fl (82-101); Mean Platelet Volume 9.7 fL (7.4-10.4); Monocytes # 1.8 10^3/uL (0.2-0.9); Monocytes % 7.7 %; Neutrophils # 20.91 10^3/uL (1.8-7.7); Neutrophils % 89.4 %; Nucleated Red Blood Cells % 0 %; Platelet Count 450 10^3/cmm (157-399); Red Blood Count 4.97 10^6/uL (3.85-5.65)
[2023-11-06 06:26] LABS: Anion Gap 13.7 (5-19); Blood Urea Nitrogen 36 mg/dL (8-23); Calcium 9.3 mg/dL (8.5-10.5); Carbon Dioxide 33 mmol/L (22-29); Chloride 98 mmol/L (98-107); Creatinine Clr Calc Pharmacy 84.2818; Glomerular Filtration Rate 114.3 mL/min (90-130); Glucose 122 mg/dL (65-115); Magnesium 2.3 mg/dL (1.7-2.3); Osmolality Calculated 300 mOsm/kg (285-295); Potassium 4.7 mmol/L (3.5-5.1); Sodium 140 mmol/L (136-145)
[2023-11-06] MEDS: budesonide 0.5 mg/2 mL Neb INHALATION ×2 (07:33→19:50)
--- NOTE | 2023-11-06 08:16 | P.PN_ITS ---
Subjective 2 Subjective: Axel is less short of breath, less tachycardic and less anxious this morning. His rhythm is sinus with PACs. We have managed to keep him on metoprolol tartrate 25 mg twice daily, low-dose lisinopril and low-dose Aldactone. He is also getting Lasix 20 mg daily. His blood pressures have been stable running in the low 100s. He is undergoing a respiratory treatment as I go into the room. His white blood cell count is up to 23,000. His other labs are essentially unchanged and fairly stable. He states that he feels better this morning. I had a conversation with the hospitalist yesterday and currently the thinking is not to proceed with coronary angiography with an eye toward a defibrillator and also not to proceed with placing a LifeVest due to the likely inability to fit his chest due to his COPD. He is also not in favor of these things. Vitals/I&O/Wt Last Vital Signs Temp 98.6 F 11/06/23 06:30 Pulse 110 H 11/06/23 07:38 Resp 18 11/06/23 07:20 BP 118/77 11/06/23 06:20 Pulse Ox 94 11/06/23 07:20 O2 Del Method Nasal Cannula 11/06/23 07:20 O2 Flow Rate 4 11/06/23 07:20 FiO2 50 11/06/23 04:00 11/05/23 11/06/23 11/06/23 22:59 06:59 14:59 Output Total 300 / 1280 450 / 1730 Balance -300 / -670 -450 / -1120 Weight last 48 hrs Weight 120 lb 1 oz Physical Exam 2 Narrative: GENERAL: In general he is more comfortable today but still short of breath HEENT: Exam within normal limits. NECK: Supple without jugular vein distention. The carotid upstroke is normal without bruits. BACK: Exam normal. LUNGS: Decreased breath sounds, scattered wheezes and prolonged expiratory phase HEART: Regular rate and rhythm. ABDOMEN: Benign without organomegaly or tenderness. EXTREMITIES: No edema. NEUROLOGIC: Exam normal. SKIN: Unremarkable. Urinary Catheter Management: Larson Latex: Cath Placed During This Visit: yes, but has since been removed by the nurse Reason for Continuing Indwelling Catheter: Decision to DC Catheter Urinary Catheter Date of Insertion: 11/01/23 Date Urinary Catheter Removed: 11/04/23 Time Urinary Catheter Discontinued: 14:35 Data 11/06/23 05:18 11/06/23 05:18 A&P Assessment and plan (1) Ex-smoker for more than 1 year: (2) Elevated troponin: (3) Cardiomyopathy: (4) Anxiety: (5) Glioma of brain: (6) Bladder cancer: Qualifiers: Bladder location: overlapping sites Qualified Code(s): C67.8 - Malignant neoplasm of overlapping sites of bladder (7) History of brain tumor: (8) Influenza B: (9) COPD (chronic obstructive pulmonary disease): Qualifiers: COPD type: unspecified COPD Qualified Code(s): J44.9 - Chronic obstructive pulmonary disease, unspecified (10) On supplemental oxygen by nasal cannula: Plan For now we will continue medical therapy. I too feel as though he is not a candidate for more aggressive therapies such as angiography, LifeVest or implantable defibrillator. Given all of his underlying problems I do not think his lifespan is a very long and I am not sure that he would even tolerate a defibrillator placement. Attestations 2 Medical Necessity Statement*: Hospitalization for management of multiple medical problems and Moderate Time for a total of 35 minutes, includes reviewing past or interval history, examining/interviewing patient, counseling patient/family/other support, updating patient/family/other support, discussing plan of care with staff, communicating with other healthcare providers and documenting encounter Diagnoses Ex-smoker for more than 1 year Z87.891 Elevated troponin R79.89 Cardiomyopathy I42.9 Anxiety F41.9 Glioma of brain C71.9 Malignant neoplasm of overlapping sites of bladder C67.8 Bladder location: overlapping sites History of brain tumor Z87.898 Influenza B J10.1 Chronic obstructive pulmonary disease, unspecified COPD type J44.9 COPD type: unspecified COPD On supplemental oxygen by nasal cannula Z78.9
[2023-11-06] MEDS: carBAMazepine XR (12 HR) 200 mg Tablet PO ×2 (08:17→16:59)
[2023-11-06] MEDS: spironolactone 25 mg Tablet 12.5 MG PO (08:17)
[2023-11-06] MEDS: levETIRAcetam 500 mg Tablet 1500 MG PO ×2 (08:18→16:59)
[2023-11-06] MEDS: lisinopril 2.5 mg Tablet PO (08:18)
[2023-11-06] MEDS: aspirin 81 mg EC Tablet PO (08:18)
[2023-11-06] MEDS: FUROsemide 20 mg Tablet PO (08:18)
--- NOTE | 2023-11-06 12:02 | P.PN_ITS ---
Subjective 2 Subjective: seen this morning no acute events overnight patient feels a lot better than before and feels more normal to his baseline there was a question of dysphagia yesterday and ct head was negative for stroke, patient NIH 0 he was able to drink regular thin liquid this morning in my presence and showed no signs of aspiration he was placed on pureed diet for which we will be re-evaluating pt worked with PT this am and walked 200 feet he will be getting a walker with a chair to go home with states has good help at home and we talked about patient possibly going home tomorrow talked about palliative care as well to which patient says he will be thinking about it but most likely will consider it White count did go up to 22,000 today. No signs of infection. Patient afebrile. Talk with cardiology yesterday as well. No plans for intervention. Discussed this with the patient and he stated my functionality is poor, just let me go and I do not want further testing . Vitals/I&O/Wt Last Vital Signs Temp 98.6 F 11/06/23 06:30 Pulse 103 H 11/06/23 11:40 Resp 18 11/06/23 11:30 BP 118/77 11/06/23 06:20 Pulse Ox 96 11/06/23 11:30 O2 Del Method Nasal Cannula 11/06/23 11:30 O2 Flow Rate 4 11/06/23 11:30 FiO2 50 11/06/23 04:00 11/05/23 11/06/23 11/06/23 22:59 06:59 14:59 Intake Total 120 / 120 Output Total 300 / 1280 450 / 1730 Balance -300 / -670 -450 / -1120 120 / 120 Weight last 48 hrs Weight 54.459 kg Physical Exam 2 Narrative: Appears euvolemic, no acute respiratory distress. No shortness of breath, no conversational dyspnea. Currently on 3 L Blood pressure stable Afebrile Pleasant happy and cheerful today. GCS 15 Nonfocal neuroexam Lungs, much more clear to auscultation compared to yesterday. Mild diffuse rhonchi present. Abdomen soft nontender Urinary Catheter Management: Larson Latex: Cath Placed During This Visit: yes, but has since been removed by the nurse Reason for Continuing Indwelling Catheter: Decision to DC Catheter Urinary Catheter Date of Insertion: 03/07/24 Date Urinary Catheter Removed: 11/04/23 Time Urinary Catheter Discontinued: 14:35 Data 11/06/23 05:18 11/06/23 05:18 Micro: Microbiology 11/06/23 10:38 Blood Culture - Preliminary Blood SPECIMEN COLLECTED 11/06/23 10:35 Blood Culture - Preliminary Blood SPECIMEN COLLECTED 11/01/23 10:48 Blood Culture - Final Blood NO GROWTH AFTER 5 DAYS 11/01/23 09:38 Blood Culture - Final Blood NO GROWTH AFTER 5 DAYS A&P Assessment and plan (1) Anxiety: (2) Cardiomyopathy: (3) Weight loss: (4) Glioma of brain: (5) History of brain tumor: (6) Bladder cancer: Qualifiers: Bladder location: overlapping sites Qualified Code(s): C67.8 - Malignant neoplasm of overlapping sites of bladder (7) Influenza B: (8) Arthritis: (9) COPD (chronic obstructive pulmonary disease): Qualifiers: COPD type: unspecified COPD Qualified Code(s): J44.9 - Chronic obstructive pulmonary disease, unspecified (10) Acute respiratory failure with hypoxia and hypercapnia: (11) Acute exacerbation of chronic obstructive pulmonary disease (COPD): (12) Fatigue: Plan Acute COPD exacerbation?improving End-stage COPD, severe emphysema Weight loss Conversational dyspnea Functional capacity has reduced as well Patient is requiring anxiolytics with use of BiPAP intermittently Currently on 3 L Exacerbation is also related to influenza B. Completed 5 days of Tamiflu Currently on isolation Afebrile Patient is getting antibiotics for community-acquired pneumonia, will complete ceftriaxone and doxycycline total of 7 days. Patient on Yupelri, Perforomist, Pulmicort at home. He is to continue those at discharge. Follow-up with pulmonary after discharge. Systolic CHF exacerbation Continue with Lasix 20 oral daily. Evaluated by cardiology. Patient not a candidate for aggressive medical therapy such as angiogram, defibrillator, LifeVest at this time. Discussed this with the patient and he is in agreement. He does not want to pursue aggressive management. We will opt for medical management at this time. Sinus tachycardia?improved ? Most likely secondary to anxiety. ? Continue on lorazepam 1 mg 3 times daily ?Continue metoprolol 25 twice daily _Normal saline bolus was given which improved patient. History of bladder and brain tumor History of seizure in the past after trauma Guarded prognosis Increased feeding production: Continue to use Mucomyst and chest vest therapy Larson catheter can be removed DNR/DNI Had a long discussion with the patient. He is to remain DNR/DNI and does not want any further aggressive medical therapy treatments for his heart. He would like a walker with a chair to go home with. He says he has a lot of help. He does have refills on his triple nebulization at home. He says any other new medications he will need a refill on at discharge. He says he feels well today. We will transfer patient to floor today and plan to discharge him home with home health. WBC 22,000. Afebrile. Recultured. This may be reactive. I do not believe there is true infection at this time. Procalcitonin also ordered. Attestations 2 Medical Necessity Statement*: Transfer to floor today. Plan for discharge in a.m. most likely if patient remains stable. Diagnoses Anxiety F41.9 Cardiomyopathy I42.9 Weight loss R63.4 Glioma of brain C71.9 History of brain tumor Z87.898 Malignant neoplasm of overlapping sites of bladder C67.8 Bladder location: overlapping sites Influenza B J10.1 Arthritis M19.90 Chronic obstructive pulmonary disease, unspecified COPD type J44.9 COPD type: unspecified COPD Acute respiratory failure with hypoxia and hypercapnia J96.01; J96.02 Acute exacerbation of chronic obstructive pulmonary disease (COPD) J44.1 Fatigue R53.83
--- NOTE | 2023-11-06 15:45 | PC.NURSE ---
Report called to med surg and given to MALENA Olivier. Pt to go to room 278-2 via w/c
[2023-11-06] MEDS: methylPREDNISolone sod succ 125 mg/2 mL INJ 40 MG IVP ×2 (15:50→20:55)
[2023-11-06] MEDS: tamsulosin 0.4 mg Capsule 0.400000000000000022 MG PO (16:59)
[2023-11-06] MEDS: acetaminophen 325 mg Tablet 650 MG PO (20:55)
[2023-11-06] MEDS: enoxaparin 40 mg/0.4 mL Syringe SUBCUT (20:56)
[2023-11-06] MEDS: LORazepam 1 mg Tablet PO (20:56)
[2023-11-06] MEDS: atorvastatin 40 mg Tablet PO (20:56)
[2023-11-07] VITALS (18 sets, daily range): BP systolic 96–125; BP diastolic 52–81; PULSE 84–124; RESP 16–23; TEMP 36.4–36.9; O2SAT 79–96
[2023-11-07] MEDS: ipratropium-albuterol 3 mL Neb INHALATION ×7 (00:57→23:28)
[2023-11-07] MEDS: acetylcysteine 200 mg/mL MDV 10 mL INHALATION ×3 (00:57→08:43)
[2023-11-07 05:22] LABS: Basophils % 0.1 %; Hematocrit 42.9 % (37-53); Lymphocytes # 0.4 10^3/uL (0.8-4.8); Lymphocytes % 1.9 %; Mean Corpuscular HGB Conc 32.2 g/dL (30-55); Mean Corpuscular Hemoglobin 30.3 pg (27-33); Mean Corpuscular Volume 94.1 fl (82-101); Mean Platelet Volume 9.5 fL (7.4-10.4); Monocytes # 1.7 10^3/uL (0.2-0.9); Monocytes % 7.3 %; Neutrophils % 89.5 %; Nucleated Red Blood Cells % 0 %; Platelet Count 455 10^3/cmm (157-399); Red Blood Count 4.56 10^6/uL (3.85-5.65); Red Cell Distribution Width 14.6 % (12.1-15.1); White Blood Count 22.81 10^3/uL (3.29-11.43)
[2023-11-07 05:53] LABS: Anion Gap 12.8 (5-19); Blood Urea Nitrogen 28 mg/dL (8-23); Calcium 8.9 mg/dL (8.5-10.5); Carbon Dioxide 34 mmol/L (22-29); Chloride 93 mmol/L (98-107); Creatinine Clr Calc Pharmacy 95.4128; Glomerular Filtration Rate 136.5 mL/min (90-130); Glucose 123 mg/dL (65-115); Osmolality Calculated 287 mOsm/kg (285-295); Potassium 4.8 mmol/L (3.5-5.1); Sodium 135 mmol/L (136-145)
[2023-11-07] MEDS: acetaminophen 325 mg Tablet 650 MG PO ×2 (07:16→17:07)
--- NOTE | 2023-11-07 07:32 | P.PN_ITS ---
Subjective 2 Subjective: Axel has been transferred to the second floor. He seems to be doing okay though this morning he told me that his right flank hurts. He has not had a fall or bumped up against anything. The discomfort is located between his costal margin and his iliac crest. It is reproducible on palpation. His white blood cell count is still high 22,000. Otherwise his labs are fairly unremarkable. His breathing is about the same. He is able to complete sentences but occasionally has to stop to catch his breath. Vitals/I&O/Wt Last Vital Signs Temp 98.0 F 11/07/23 04:00 Pulse 106 H 11/07/23 06:00 Resp 17 11/07/23 04:44 BP 125/80 11/07/23 04:00 Pulse Ox 93 11/07/23 04:44 O2 Del Method BiPAP 11/07/23 04:44 O2 Flow Rate 4 11/06/23 19:53 FiO2 50 11/07/23 04:44 11/06/23 11/07/23 11/07/23 22:59 06:59 14:59 Intake Total 120 / 360 Output Total 500 / 950 Balance -380 / -590 Weight last 48 hrs Weight 116 lb 8 oz Weight 116 lb 8 oz Weight 120 lb 1 oz Physical Exam 2 Narrative: GENERAL: In general he looks short of breath at rest. HEENT: Exam within normal limits. NECK: Supple without jugular vein distention. The carotid upstroke is normal without bruits. BACK: Exam normal. LUNGS: Decreased breath sounds bilaterally, increased expiratory phase, scattered wheezes HEART: Regular rate and rhythm. ABDOMEN: Benign without organomegaly or tenderness. EXTREMITIES: No edema. NEUROLOGIC: Exam normal. SKIN: Unremarkable. Urinary Catheter Management: Larson Latex: Cath Placed During This Visit: yes, but has since been removed by the nurse Reason for Continuing Indwelling Catheter: Decision to DC Catheter Urinary Catheter Date of Insertion: 11/01/23 Date Urinary Catheter Removed: 11/04/23 Time Urinary Catheter Discontinued: 14:35 Data 11/07/23 04:59 11/07/23 04:59 Micro: Microbiology 11/06/23 11:38 Gram Stain - Final Sputum - Expectorated Sputum 11/06/23 10:38 Blood Culture - Preliminary Blood SPECIMEN COLLECTED 11/06/23 10:35 Blood Culture - Preliminary Blood SPECIMEN COLLECTED 11/01/23 10:48 Blood Culture - Final Blood NO GROWTH AFTER 5 DAYS 11/01/23 09:38 Blood Culture - Final Blood NO GROWTH AFTER 5 DAYS A&P Assessment and plan (1) Ex-smoker for more than 1 year: (2) Elevated brain natriuretic peptide (BNP) level: (3) Elevated troponin: (4) Cardiomyopathy: (5) Anxiety: (6) Hyperglycemia: (7) Glioma of brain: (8) Bladder cancer: Qualifiers: Bladder location: overlapping sites Qualified Code(s): C67.8 - Malignant neoplasm of overlapping sites of bladder (9) On supplemental oxygen by nasal cannula: (10) COPD (chronic obstructive pulmonary disease): Qualifiers: COPD type: unspecified COPD Qualified Code(s): J44.9 - Chronic obstructive pulmonary disease, unspecified Plan No changes. Plan is the same as the previous several days. Attestations 2 Medical Necessity Statement*: Hospitalization for management of acute respiratory failure and Moderate Time for a total of 30 minutes, includes reviewing past or interval history, examining/interviewing patient, counseling patient/family/other support, updating patient/family/other support and documenting encounter Diagnoses Ex-smoker for more than 1 year Z87.891 Elevated brain natriuretic peptide (BNP) level R79.89 Elevated troponin R79.89 Cardiomyopathy I42.9 Anxiety F41.9 Hyperglycemia R73.9 Glioma of brain C71.9 Malignant neoplasm of overlapping sites of bladder C67.8 Bladder location: overlapping sites On supplemental oxygen by nasal cannula Z78.9 Chronic obstructive pulmonary disease, unspecified COPD type J44.9 COPD type: unspecified COPD
[2023-11-07] MEDS: metoprolol tartrate 25 mg Tablet PO ×2 (08:23→17:07)
[2023-11-07] MEDS: levETIRAcetam 500 mg Tablet 1500 MG PO ×2 (08:23→17:07)
[2023-11-07] MEDS: FUROsemide 20 mg Tablet PO (08:23)
[2023-11-07] MEDS: aspirin 81 mg EC Tablet PO (08:23)
[2023-11-07] MEDS: carBAMazepine XR (12 HR) 200 mg Tablet PO ×2 (08:23→17:07)
[2023-11-07] MEDS: budesonide 0.5 mg/2 mL Neb INHALATION ×2 (08:43→20:07)
[2023-11-07] MEDS: methylPREDNISolone sod succ 125 mg/2 mL INJ 40 MG IVP ×2 (09:47→22:00)
[2023-11-07] MEDS: FUROsemide 10 mg/mL SDV 4mL 40 MG IVP (09:47)
[2023-11-07] MEDS: levofloxacin-dextrose 5 % 750 MG/150 ML PREMIX 100 MG IV (13:51)
--- NOTE | 2023-11-07 14:02 | P.PN_ITS ---
Subjective 2 Subjective: seen today wbc [id number] and persistent urine culture positive for coag neg staph > 100,000 colonies Vitals/I&O/Wt Last Vital Signs Temp 98.3 F 11/07/23 11:56 Pulse 106 H 11/07/23 13:00 Resp 18 11/07/23 13:00 BP 124/62 11/07/23 11:56 Pulse Ox 79 L 11/07/23 13:35 O2 Del Method Nasal Cannula 11/07/23 13:00 O2 Flow Rate 5 11/07/23 13:35 FiO2 50 11/07/23 04:44 11/06/23 11/07/23 11/07/23 22:59 06:59 14:59 Intake Total 120 / 360 240 / 240 Output Total 500 / 950 Balance -380 / -590 240 / 240 Weight last 48 hrs Weight 52.844 kg Weight 52.844 kg Weight 54.459 kg Physical Exam 2 Narrative: Appears euvolemic, no acute respiratory distress. No shortness of breath, no conversational dyspnea. Currently on 3 L Blood pressure stable Afebrile Pleasant happy and cheerful today. GCS 15 Nonfocal neuroexam Lungs, much more clear to auscultation compared to yesterday. Mild diffuse rhonchi present. Abdomen soft nontender Urinary Catheter Management: Larson Latex: Cath Placed During This Visit: yes, but has since been removed by the nurse Reason for Continuing Indwelling Catheter: Decision to DC Catheter Urinary Catheter Date of Insertion: 11/01/23 Date Urinary Catheter Removed: 11/04/23 Time Urinary Catheter Discontinued: 14:35 Data 11/07/23 04:59 11/07/23 04:59 Micro: Microbiology 11/06/23 11:38 Gram Stain - Final Sputum - Expectorated Sputum Sputum Culture - Preliminary 11/06/23 10:38 Blood Culture - Preliminary Blood NEGATIVE TO DATE 11/06/23 10:35 Blood Culture - Preliminary Blood NEGATIVE TO DATE 11/06/23 11:35 Urine Culture - Preliminary Urine,Clean Catch Coag negative Staphylococcus 11/01/23 10:48 Blood Culture - Final Blood NO GROWTH AFTER 5 DAYS 11/01/23 09:38 Blood Culture - Final Blood NO GROWTH AFTER 5 DAYS A&P Assessment and plan (1) Anxiety: (2) Cardiomyopathy: (3) Weight loss: (4) Glioma of brain: (5) History of brain tumor: (6) Bladder cancer: Qualifiers: Bladder location: overlapping sites Qualified Code(s): C67.8 - Malignant neoplasm of overlapping sites of bladder (7) Influenza B: (8) Arthritis: (9) COPD (chronic obstructive pulmonary disease): Qualifiers: COPD type: unspecified COPD Qualified Code(s): J44.9 - Chronic obstructive pulmonary disease, unspecified (10) Acute respiratory failure with hypoxia and hypercapnia: (11) Acute exacerbation of chronic obstructive pulmonary disease (COPD): (12) Fatigue: Plan Acute COPD exacerbation?improving End-stage COPD, severe emphysema Weight loss Conversational dyspnea Functional capacity has reduced as well Patient is requiring anxiolytics with use of BiPAP intermittently Currently on 3 L Exacerbation is also related to influenza B. Completed 5 days of Tamiflu Currently on isolation Afebrile Patient is getting antibiotics for community-acquired pneumonia, will complete ceftriaxone and doxycycline total of 7 days. Patient on Yupelri, Perforomist, Pulmicort at home. He is to continue those at discharge. Follow-up with pulmonary after discharge. Systolic CHF exacerbation Continue with Lasix 20 oral daily. Evaluated by cardiology. Patient not a candidate for aggressive medical therapy such as angiogram, defibrillator, LifeVest at this time. Discussed this with the patient and he is in agreement. He does not want to pursue aggressive management. We will opt for medical management at this time. Sinus tachycardia?improved ? Most likely secondary to anxiety. ? Continue on lorazepam 1 mg 3 times daily ?Continue metoprolol 25 twice daily _Normal saline bolus was given which improved patient. History of bladder and brain tumor History of seizure in the past after trauma Guarded prognosis Increased feeding production: Continue to use Mucomyst and chest vest therapy Larson catheter can be removed DNR/DNI Had a long discussion with the patient. He is to remain DNR/DNI and does not want any further aggressive medical therapy treatments for his heart. He would like a walker with a chair to go home with. He says he has a lot of help. He does have refills on his triple nebulization at home. He says any other new medications he will need a refill on at discharge. He says he feels well today. Plan to Discharge him once culture sensitivity is back for urine. UTI - start levofloxacin IV 750 daily - Will complete 7 day course. - Will await culture sensitivity - WBC [id number]. once we see downward trend, will dc patient - recheck cbc in AM Attestations 2 Medical Necessity Statement*: has acute uti expect 48 hour stay Diagnoses Anxiety F41.9 Cardiomyopathy I42.9 Weight loss R63.4 Glioma of brain C71.9 History of brain tumor Z87.898 Malignant neoplasm of overlapping sites of bladder C67.8 Bladder location: overlapping sites Influenza B J10.1 Arthritis M19.90 Chronic obstructive pulmonary disease, unspecified COPD type J44.9 COPD type: unspecified COPD Acute respiratory failure with hypoxia and hypercapnia J96.01; J96.02 Acute exacerbation of chronic obstructive pulmonary disease (COPD) J44.1 Fatigue R53.83
[2023-11-07] MEDS: tamsulosin 0.4 mg Capsule 0.400000000000000022 MG PO (17:07)
[2023-11-07] MEDS: enoxaparin 40 mg/0.4 mL Syringe SUBCUT (20:49)
[2023-11-07] MEDS: atorvastatin 40 mg Tablet PO (20:49)
[2023-11-07] MEDS: LORazepam 1 mg Tablet PO (20:51)
[2023-11-08] VITALS (11 sets, daily range): BP systolic 103–116; BP diastolic 70–80; PULSE 72–125; RESP 16–21; TEMP 36.3–36.7; O2SAT 87–100; BMI 17.7
[2023-11-08] MEDS: ipratropium-albuterol 3 mL Neb INHALATION ×3 (04:04→12:02)
[2023-11-08 05:11] LABS: Basophils % 0.2 %; Hematocrit 43.8 % (37-53); Lymphocytes # 0.3 10^3/uL (0.8-4.8); Lymphocytes % 1.8 %; Mean Platelet Volume 9.7 fL (7.4-10.4); Monocytes # 0.9 10^3/uL (0.2-0.9); Monocytes % 4.8 %; Neutrophils % 91.8 %; Nucleated Red Blood Cells % 0 %; Platelet Count 395 10^3/cmm (157-399); Red Blood Count 4.66 10^6/uL (3.85-5.65); Red Cell Distribution Width 14.6 % (12.1-15.1); White Blood Count 18.18 10^3/uL (3.29-11.43)
--- NOTE | 2023-11-08 08:10 | P.PN_ITS ---
Subjective 2 Subjective: Axel seems a little better today. He is more talkative and seems less short of breath. He is able to complete a sentence without stopping to breathe. He is not in any pain. His rhythm is sinus however he is tachycardic with occasional ectopy. Vitals/I&O/Wt Last Vital Signs Temp 98.1 F 11/08/23 07:34 Pulse 125 H 11/08/23 07:34 Resp 18 11/08/23 07:34 BP 114/72 11/08/23 07:34 Pulse Ox 90 11/08/23 07:34 O2 Del Method Nasal Cannula 11/08/23 07:34 O2 Flow Rate 5 11/07/23 20:00 FiO2 50 11/08/23 04:07 11/07/23 11/08/23 11/08/23 22:59 06:59 14:59 Intake Total 510 / 990 Output Total 800 / 800 150 / 950 Balance -290 / 190 -150 / 40 Weight last 48 hrs Weight 120 lb Weight 121 lb 9.6 oz Weight 116 lb 8 oz Weight 116 lb 8 oz Physical Exam 2 Narrative: GENERAL: Generally looks and feels well HEENT: Exam within normal limits. NECK: Supple without jugular vein distention. The carotid upstroke is normal without bruits. BACK: Exam normal. LUNGS: Decreased breath sounds bilaterally. Scattered wheezes. Increased expiratory phase. HEART: Regular rate and rhythm. ABDOMEN: Benign without organomegaly or tenderness. EXTREMITIES: No edema. NEUROLOGIC: Exam normal. SKIN: Unremarkable. Urinary Catheter Management: Larson Latex: Cath Placed During This Visit: yes, but has since been removed by the nurse Reason for Continuing Indwelling Catheter: Decision to DC Catheter Urinary Catheter Date of Insertion: 11/01/23 Date Urinary Catheter Removed: 11/04/23 Time Urinary Catheter Discontinued: 14:35 Data 11/08/23 04:53 11/07/23 04:59 Micro: Microbiology 11/06/23 11:38 Gram Stain - Final Sputum - Expectorated Sputum Sputum Culture - Preliminary 11/06/23 10:38 Blood Culture - Preliminary Blood NEGATIVE TO DATE 11/06/23 10:35 Blood Culture - Preliminary Blood NEGATIVE TO DATE 11/06/23 11:35 Urine Culture - Preliminary Urine,Clean Catch Coag negative Staphylococcus A&P Assessment and plan (1) Ex-smoker for more than 1 year: (2) Elevated brain natriuretic peptide (BNP) level: (3) Elevated troponin: (4) Cardiomyopathy: (5) Anxiety: (6) Weight loss: (7) Glioma of brain: (8) COPD (chronic obstructive pulmonary disease): Qualifiers: COPD type: unspecified COPD Qualified Code(s): J44.9 - Chronic obstructive pulmonary disease, unspecified Plan His blood pressure has been more stable over the last few days. I am going to increase his beta-kiki to see if I can get a better handle on his heart rate. The tachycardia is multifactorial but primarily due to a cardiomyopathy and severe end-stage lung disease. Attestations 2 Medical Necessity Statement*: Hospitalization for management of COPD, brain cancer and bladder cancer. and Moderate Time for a total of 35 minutes, includes reviewing past or interval history, examining/interviewing patient, placing orders, counseling patient/family/other support, updating patient/family/other support, discussing plan of care with staff, communicating with other healthcare providers and documenting encounter Diagnoses Ex-smoker for more than 1 year Z87.891 Elevated brain natriuretic peptide (BNP) level R79.89 Elevated troponin R79.89 Cardiomyopathy I42.9 Anxiety F41.9 Weight loss R63.4 Glioma of brain C71.9 Chronic obstructive pulmonary disease, unspecified COPD type J44.9 COPD type: unspecified COPD
[2023-11-08] MEDS: budesonide 0.5 mg/2 mL Neb INHALATION (08:48)
[2023-11-08] MEDS: aspirin 81 mg EC Tablet PO (09:01)
[2023-11-08] MEDS: levETIRAcetam 500 mg Tablet 1500 MG PO (09:01)
[2023-11-08] MEDS: carBAMazepine XR (12 HR) 200 mg Tablet PO (09:01)
[2023-11-08] MEDS: metoprolol tartrate 25 mg Tablet PO (09:02)
[2023-11-08] MEDS: FUROsemide 20 mg Tablet PO (09:02)
--- NOTE | 2023-11-08 09:14 | PC.RESP ---
Patient sats were 85-86 on 5LPM NC. Therapist did chest vest therapy and breathing treatment. Patient was able to cough up large, thick, yellow mucous. Sats are ranging from 87-89 on 5LPM NC.
[2023-11-08] MEDS: methylPREDNISolone sod succ 125 mg/2 mL INJ 40 MG IVP (09:29)
[2023-11-08] MEDS: FUROsemide 10 mg/mL SDV 4mL 40 MG IVP (09:31)
--- NOTE | 2023-11-08 12:26 | PM.DCS ---
Discharge Providers Date of Admission: 11/01/23 11:01 Date of Discharge: November 07, 2023 Attending Provider at Admission: Bart Ordonez MD Attending Provider at Discharge: Lindsey Tirado MD Primary Care Provider: Joshua Casiano DO Diagnoses at Discharge Discharge Diagnosis (1) Ex-smoker for more than 1 year: Status: Acute (2) Elevated brain natriuretic peptide (BNP) level: Status: Acute (3) Elevated troponin: Status: Acute (4) Cardiomyopathy: Status: Acute (5) Anxiety: Status: Acute (6) Hyperglycemia: Status: Acute (7) Glioma of brain: Status: Acute (8) Bladder cancer: Status: Acute Qualifiers: Bladder location: overlapping sites Qualified Code(s): C67.8 - Malignant neoplasm of overlapping sites of bladder (9) On supplemental oxygen by nasal cannula: Status: Acute (10) COPD (chronic obstructive pulmonary disease): Status: Acute Qualifiers: COPD type: unspecified COPD Qualified Code(s): J44.9 - Chronic obstructive pulmonary disease, unspecified Reason for Visit Reason for Visit: sob Hospital Course Hospital Course Initially admitted for COPD exacerbation 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 He is on triple nebulization treatments at home. Did also have a systolic CHF exacerbation and has been on Lasix. Echo completed. Nonischemic cardiomyopathy suspected. EF 5%. Cardiology evaluated the patient and at this time patient is not a candidate for LifeVest AICD placement or further aggressive measures. This was discussed with the patient in detail by cardiology and myself. Patient does not carry a good prognosis. Patient does have a history of bladder cancer and brain tumor from the past. He also has got very poor functionality status secondary to his end-stage COPD. Patient has opted to be DNR/DNI and is not interested in further workup at this time. Patient would like to manage conservatively what ever we can. He is not a candidate for angiogram at this time either. He was diagnosed with UTI during hospital stay for which he was placed on Macrobid at discharge. ? He was treated for community-acquired pneumonia with antibiotics during hospitalization as well. Patient is in good spirits feels much better compared to before and is back to his baseline. 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 Palliative care hospice was also brought up with the patient but he is not ready to make that decision yet. Patient will be given a sleep study outpatient to have him qualified for BiPAP. Continuous oxygen concentrator were ordered for the patient and delivered to his house. Physical Exam Narrative: Appears euvolemic, no acute respiratory distress. No shortness of breath, no conversational dyspnea. Currently on 3 L Blood pressure stable Afebrile Pleasant happy and cheerful today. GCS 15 Nonfocal neuroexam Lungs, much more clear to auscultation compared to yesterday. Clear, no rhonchi or wheezes appreciated today. Abdomen soft nontender Urinary Catheter Management: Larson Latex: Cath Placed During This Visit: yes, but has since been removed by the nurse Reason for Continuing Indwelling Catheter: Decision to DC Catheter Urinary Catheter Date of Insertion: 11/01/23 Date Urinary Catheter Removed: 11/04/23 Time Urinary Catheter Discontinued: 14:35 Discharge Data Studies Completed and Pending Completed Studies During Hospitalization Category Date Time Status CT angio chest PE protcl [id number] Stat Cat Scan 11/01/23 11:[address] head wo con* [id number] Routine Cat Scan 11/05/23 18:13 Completed XR chest 1V portable [id number] Stat Exams 11/01/23 09:14 Completed CV. echo complete* [id number] Routine Ultrasound 11/01/23 12:43 Completed Pending at discharge Category Date Time Status Blood Culture Stat Lab 11/06/23 10:38 Results Sputum Culture and Gram Stain Stat Lab 11/06/23 11:38 Results Urine Culture Stat Lab 11/06/23 11:35 Results Radiology Impressions Head CT 11/05/23 18:13 IMPRESSION: No acute intracranial abnormality. Laboratory Results WBC 22.81 10^3/uL (3.29-11.43) H 11/07/23 04:59 RBC 4.56 10^6/uL (3.85-5.65) 11/07/23 04:59 Hgb 13.80 g/dL (11.27-16.99) 11/07/23 04:59 Hct 42.9 % (37-53) 11/07/23 04:59 MCV 94.1 fl (82-101) 11/07/23 04:59 MCH 30.3 pg (27-33) 11/07/23 04:59 MCHC 32.2 g/dL (30-55) 11/07/23 04:59 RDW 14.6 % (12.1-15.1) 11/07/23 04:59 Plt Count 455 10^3/cmm (157-399) H 11/07/23 04:59 MPV 9.5 fL (7.4-10.4) 11/07/23 04:59 Neut % (Auto) 89.5 % 11/07/23 04:59 Lymph % (Auto) 1.9 % 11/07/23 04:59 [place] % (Auto) 7.3 % 11/07/23 04:59 Eos % (Auto) 0.0 % 11/07/23 04:59 Baso % (Auto) 0.1 % 11/07/23 04:59 Neut # (Auto) 20.40 10^3/uL (1.8-7.7) H 11/07/23 04:59 Lymph # (Auto) 0.4 10^3/uL (0.8-4.8) L 11/07/23 04:59 [place] # (Auto) 1.7 10^3/uL (0.2-0.9) H 11/07/23 04:59 Eos # (Auto) 0.0 10^3/uL (0.0-0.8) 11/07/23 04:59 Baso # (Auto) 0.0 10^3/uL (0.0-0.1) 11/07/23 04:59 Nucleated RBC % (auto) 0 % 11/07/23 04:59 Nucleated RBCs # 0.0 /100WBC 11/07/23 04:59 Specimen Type Arterial 11/01/23 13:30 Sample Site Radial, right 11/01/23 13:30 ABG pH 7.27 (7.35-7.45) L 11/01/23 13:30 ABG pCO2 60.8 mmHg (35-45) H* 11/01/23 13:30 ABG pO2 69.3 mmHg (80.0-100.0) L 11/01/23 13:30 ABG PO2/FiO2 Ratio 28 11/01/23 13:30 ABG HCO3 27.7 mmol/L (22-26) H 11/01/23 13:30 ABG O2 Saturation 93.1 11/01/23 13:30 ABG Base Excess -0.8 mmol/L (-2.0-2.0) 11/01/23 13:30 Az Test Pos 11/01/23 13:30 A-a O2 Gradient 0.8 mmHg (5-10) L 11/01/23 13:30 Hematocrit 44.7 % (42-52) 11/01/23 13:30 Hgb O2 Saturation 92.0 % (95-100) L 11/01/23 13:30 Carboxyhemoglobin 0.8 %THgb (0.4-20.1) 11/01/23 13:30 Methemoglobin 0.4 % (0.4-1.5) 11/01/23 13:30 Total Hemoglobin 14.6 g/dL (14-18) 11/01/23 13:30 Sodium 138.0 mmol/L (131-143) 11/01/23 13:30 Potassium 4.1 mmol/L (3.5-5.0) 11/01/23 13:30 Glucose 154.0 mg/dL (70-115) H 11/01/23 13:30 Ionized Calcium 1.3 mmol/L (1.1-1.4) 11/01/23 13:30 O2 Delivery Device Bipap 11/01/23 13:30 O2 Liters/Min 3.0 % 11/01/23 09:47 FiO2 32.0 % 11/01/23 09:47 Paratransit Operator ID Glc 11/01/23 13:30 Sodium 135 mmol/L (136-145) L 11/07/23 04:59 Potassium 4.8 mmol/L (3.5-5.1) 11/07/23 04:59 Chloride 93 mmol/L (98-107) L 11/07/23 04:59 Carbon Dioxide 34 mmol/L (22-29) H 11/07/23 04:59 Anion Gap 12.8 (5-19) 11/07/23 04:59 BUN 28 mg/dL (8-23) H 11/07/23 04:59 Creatinine 0.6 mg/dL (0.7-1.2) L 11/07/23 04:59 GFR Calculation 136.5 mL/min (90-130) H 11/07/23 04:59 Glucose 123 mg/dL (65-115) H 11/07/23 04:59 Estimat Average Glucose 117 11/01/23 09:38 Hemoglobin A1c 5.7 % (4.0-6.0) 11/01/23 09:38 Calculated Osmolality 287 mOsm/kg (285-295) 11/07/23 04:59 Lactic Acid 3.8 mmol/L (0.5-2.2) H 11/01/23 09:38 Lactic Acid (Sepsis) 3.4 mmol/L (0.5-2.2) H 11/01/23 13:26 Calcium 8.9 mg/dL (8.5-10.5) 11/07/23 04:59 Magnesium 2.3 mg/dL (1.7-2.3) 11/06/23 05:18 Total Bilirubin 0.2 mg/dL (0.15-1.2) 11/02/23 04:38 AST 30 U/L (0-40) 11/02/23 04:38 ALT 30 U/L (0-41) 11/02/23 04:38 Alkaline Phosphatase 80 U/L (40-130) 11/02/23 04:38 Troponin T Baseline 195 ng/L (0-15) H* 11/01/23 09:38 Troponin T 120 Minute 155.5 ng/L (0-15) H 11/01/23 12:04 Delta Troponin T -39.5 ABS# (0-10) L 11/01/23 12:04 Troponin T Hi Sens 6Hr 113.6 ng/L (0-15) H 11/01/23 15:28 Troponin T Hi Sens 6Hr Delta -81.4 ng/L (0-12) L 11/01/23 15:28 NT-Pro-B Natriuret Pep 8940 pg/mL (0-125) H 11/01/23 09:38 Total Protein 6.5 g/dL (6.6-8.7) L 11/02/23 04:38 Albumin 3.0 g/dL (3.5-5.2) L 11/02/23 04:38 Globulin 3.5 g/dL (1.3-4.6) 11/02/23 04:38 Triglycerides 108 mg/dL (0-150) 11/02/23 04:38 Cholesterol 126 mg/dL (0-200) 11/02/23 04:38 LDL Cholesterol, Calc 62 mg/dL (50-129) 11/02/23 04:38 HDL Cholesterol 42 mg/dL (60-100) L 11/02/23 04:38 LDL/HDL Ratio 1.48 RATIO (0.00-3.22) 11/02/23 04:38 Cholesterol/HDL Ratio 3.00 mg/dL (1.0-5.00) 11/02/23 04:38 Procalcitonin 0.20 ng/mL (0-0.5) 11/06/23 05:18 TSH 0.33 uIU/mL (0.27-4.20) 11/01/23 09:38 Urine Color Yellow (Yellow) 11/01/23 11:30 Urine Appearance Sl hazy (CLEAR) A 11/01/23 11:30 Urine pH 5 (5-7) 11/01/23 11:30 Ur Specific [place] 1.025 (1.005-1.030) 11/01/23 11:30 Urine Protein 2+ (Negative) H 11/01/23 11:30 Urine Glucose (UA) 4+ (Normal) H 11/01/23 11:30 Urine Ketones 1+ (Negative) H 11/01/23 11:30 Urine Blood 2+ (Negative) H 11/01/23 11:30 Urine Nitrate Negative (Negative) 11/01/23 11:30 Urine Bilirubin Neg (Negative) 11/01/23 11:30 Urine Urobilinogen Norm mg/dL (Negative) 11/01/23 11:30 Ur Leukocyte Esterase Negative (Negative) 11/01/23 11:30 Urine RBC 0-4 /hpf (0-2) H 11/01/23 11:30 Urine WBC 0-4 /hpf (0-5) H 11/01/23 11:30 Ur Squamous Epith Cells None /hpf (0-5) 11/01/23 11:30 Amorphous Sediment Trace /hpf 11/01/23 11:30 Urine Bacteria Trace /hpf (NONE) 11/01/23 11:30 Hyaline Casts 0-4 /lpf H 11/01/23 11:30 Fine Granular Casts 15-25 /lpf H 11/01/23 11:30 Urine Mucus 1+ /hpf 11/01/23 11:30 Carbamazepine 6.9 ug/mL (4.0-12.0) 11/01/23 09:38 Adenovirus (PCR) Not detected (NOT DETECT) 11/01/23 09:50 C. pneumoniae DNA (PCR) Not detected (NOT DETECT) 11/01/23 09:50 Coronavirus 229E (PCR) Not detected (NOT DETECT) 11/01/23 09:50 Human Metapneumovir PCR Not detected (NOT DETECT) 11/01/23 09:50 Influenza A (H1) PCR Not detected (NOT DETECT) 11/01/23 09:50 Influ A (H1/09) PCR Not detected (NOT DETECT) 11/01/23 09:50 Influenza A (H3) PCR Not detected (NOT DETECT) 11/01/23 09:50 Influenza Type A (PCR) Not detected (NOT DETECT) 11/01/23 09:50 Influenza Type B (PCR) Detected (NOT DETECT) A 11/01/23 09:50 M. pneumoniae (PCR) Not detected (NOT DETECT) 11/01/23 09:50 Parainfluenza 1 (PCR) Not detected (NOT DETECT) 11/01/23 09:50 Parainfluenza 2 (PCR) Not detected (NOT DETECT) 11/01/23 09:50 Parainfluenza 3 (PCR) Not detected (NOT DETECT) 11/01/23 09:50 Parainfluenza 4 (PCR) Not detected (NOT DETECT) 11/01/23 09:50 RSV Type A (PCR) Not detected (NOT DETECT) 11/01/23 09:50 RSV Type B (PCR) Not detected (NOT DETECT) 11/01/23 09:50 Entero/Rhino (PCR) Not detected (NOT DETECT) 11/01/23 09:50 SARS-CoV-2 (PCR) Not detected (NOT DETECT) 11/01/23 09:50 MRSA (PCR) Not detected (NOT DETECTED) 11/03/23 01:34 Vitals Last Vital Signs Temp 98.3 F 11/07/23 11:56 Pulse 106 H 11/07/23 13:00 Resp 18 11/07/23 13:00 BP 124/62 11/07/23 11:56 Pulse Ox 79 L 11/07/23 13:35 O2 Del Method Nasal Cannula 11/07/23 13:00 O2 Flow Rate 5 11/07/23 13:35 FiO2 50 11/07/23 04:44 Discharge Plan Discharge Patient Disposition: Home Health Service Condition: Stable Prescriptions: New atorvastatin 40 mg Tablet 40 mg PO BEDTIME Qty: 30 0RF acetylcysteine 200 mg/mL (20 %) Solution 200 mg inhalation Q4H.RESPIRATORY Qty: 10 0RF aspirin 81 mg Tablet,Delayed Release (Dr/Ec) 81 mg PO DAILY Qty: 30 0RF furosemide 20 mg Tablet 40 mg PO DAILY@0800 Qty: 30 0RF metoprolol tartrate 25 mg Tablet 25 mg PO BID Qty: 60 0RF Macrobid 100 mg capsule 100 mg PO BID 7 Days Qty: 14 0RF Rx Instructions: must administer with a meal/food Continued levetiracetam [Keppra] 1,000 mg tablet 1,500 mg PO BID carbamazepine 200 mg tablet extended release 12 hr 200 mg PO BID acetaminophen [Tylenol Extra Strength] 500 mg tablet 1,000 mg PO Q6H PRN (Reason: pain) albuterol sulfate 90 mcg/actuation HFA aerosol inhaler 2 puff inhalation QID PRN (Reason: shortness of breath or wheezing) Qty: 8.5 11RF ibuprofen 200 mg capsule 400 mg PO Q6H PRN (Reason: Pain) tamsulosin [Flomax] 0.4 mg capsule 0.4 mg PO QPM ipratropium-albuterol 0.5 mg-3 mg(2.5 mg base)/3 mL solution for nebulization 3 ml inhalation QID PRN (Reason: wheezing) Qty: 180 6RF budesonide 0.5 mg/2 mL suspension for nebulization 0.5 mg inhalation BID Qty: 120 6RF formoterol fumarate [Perforomist] 20 mcg/2 mL solution for nebulization 2 ml inhalation BID Qty: 120 6RF Yupelri 175 mcg/3 mL solution for nebulization 175 mcg inhalation DAILY Qty: 90 6RF lorazepam 1 mg tablet 1 mg PO TID PRN (Reason: Anxiety) Qty: 90 5RF fluticasone propion-salmeterol [Advair Diskus] 100-50 mcg/dose blister with device 1 inh inhalation DAILY Qty: 60 6RF Myrbetriq 25 mg tablet extended release 24 hr 25 mg PO BEDTIME Discharge Orders: Discharge Order (Routine); Ordered 11/08/23 Ordered By: Lindsey Tirado Other Ambulatory Orders: DME: Oxygen (Order) Location: None Selected Ordered By: Lindsey Tirado DME: Walker (Order) Location: None Selected Ordered By: Lindsey Tirado Sleep Study/Titration (Routine) Timeframe: 1 Day Facility: [facility] - Location: [facility] Ordered By: Lindsey Tirado Referrals: [facility] [Other] Eduardo Singh MD [Physician] - 11/26/23 2:00 pm () Maico North MD [Physician] - 01/11/24 8:30 am () Joshua Casiano DO [Primary Care Provider] - 11/15/23 1:40 pm Discharge Diet: Cardiac Discharge Activity: Resume usual activity and As per PT/OT instructions Patient Instructions: Metoprolol (By mouth), Furosemide (By mouth) (Lasix), Aspirin (By mouth), Atorvastatin (By mouth) (Lipitor, Atorvaliq), Nitrofurantoin Combination (By mouth) (Macrobid), Heart Attack (DC), COPD (Chronic Obstructive Pulmonary Disease) (DC), Bacterial Pneumonia (DC), Opioid Safety Discharge Attestations Time Spent in Discharge Care*: greater than 30 min Quality Metrics Clinical Quality Measures [ No reported AMI, CVA or VTE this stay] Coding Level of Care Code Acute Code for Chg Fwd Diagnoses Ex-smoker for more than 1 year Z87.891 Elevated brain natriuretic peptide (BNP) level R79.89 Elevated troponin R79.89 Cardiomyopathy I42.9 Anxiety F41.9 Hyperglycemia R73.9 Glioma of brain C71.9 Malignant neoplasm of overlapping sites of bladder C67.8 Bladder location: overlapping sites On supplemental oxygen by nasal cannula Z78.9 Chronic obstructive pulmonary disease, unspecified COPD type J44.9 COPD type: unspecified COPD
== END 2023-11-08 13:58 | disposition home health service (06) | DRG 190 ==
LOC: ER 09:38 → ER IP 11:31 → ICU 16:13 → MEDSURG 11-06 17:14
PROVIDERS: Internal Medicine; Admitting Provider Internal Medicine; Emergency Provider Family Medicine; PCP Family Medicine; Visit Provider Internal Medicine
DX: J44.0 Chronic obstructive pulmonary disease with (acute) lower respiratory infection (principal); I50.23 Acute on chronic systolic (congestive) heart failure; J18.9 Pneumonia, unspecified organism; J96.01 Acute respiratory failure with hypoxia; J96.02 Acute respiratory failure with hypercapnia; N39.0 Urinary tract infection, site not specified; Z68.1 Body mass index [BMI] 19.9 or less, adult; I42.8 Other cardiomyopathies; C71.9 Malignant neoplasm of brain, unspecified; J44.1 Chronic obstructive pulmonary disease with (acute) exacerbation; Z66 Do not resuscitate; Z51.5 Encounter for palliative care; R00.0 Tachycardia, unspecified; J10.1 Influenza due to other identified influenza virus with other respiratory manifestations; Z99.81 Dependence on supplemental oxygen; Z87.891 Personal history of nicotine dependence; F41.9 Anxiety disorder, unspecified; G40.909 Epilepsy, unspecified, not intractable, without status epilepticus; R63.4 Abnormal weight loss; R73.9 Hyperglycemia, unspecified; R79.89 Other specified abnormal findings of blood chemistry; C67.8 Malignant neoplasm of overlapping sites of bladder
CPT/HCPCS: 36415; 36600; 51702; 70450; 71045; 71275; 80048; 80051; 80053; 80061; 80156; 81001; 82330; 82805; 83036; 83605; 83735; 83880; 84145; 84443; 84484; 85025; 87040; 87070; 87077; 87086; 87186; 87205; 87486; 87581; 87633; 87641; 92526; 92610; 93005; 93306; 94640; 94660; 94669; 94760; 96365; 96367; 96372; 96375; 96376; 97110; 97116; 97161; 97530; 99291; 99292; J1100; J1644; J1650; J1940; J1956; J2060; J2930; J7030; J7050; J7608; J7626; Q9967

== ENCOUNTER → 2023-11-26 13:49 | Outpatient (BNVA) | payer MEDICARE, MEDICAID, SELFPAY | PROVIDERS: PCP Family Medicine; Visit Provider Nurse Practitioner Family | DX: I42.9 Cardiomyopathy, unspecified (principal); Z87.891 Personal history of nicotine dependence | CPT/HCPCS: 99213 ==

== ENCOUNTER → 2023-12-06 13:50 | Outpatient (BNVA) | payer MEDICARE, MEDICAID, SELFPAY | PROVIDERS: PCP Family Medicine; Visit Provider Family Medicine | DX: E87.1 Hypo-osmolality and hyponatremia (principal); I42.9 Cardiomyopathy, unspecified; J44.9 Chronic obstructive pulmonary disease, unspecified | CPT/HCPCS: 80048 ==

== ENCOUNTER → 2023-12-27 10:58 | Outpatient (BNVA) | payer MEDICARE, MEDICAID, SELFPAY | PROVIDERS: PCP Family Medicine; Visit Provider Internal Medicine Pulmonary Disease | DX: J44.9 Chronic obstructive pulmonary disease, unspecified (principal); Z78.9 Other specified health status; Z12.2 Encounter for screening for malignant neoplasm of respiratory organs; Z87.891 Personal history of nicotine dependence; J96.12 Chronic respiratory failure with hypercapnia; J98.6 Disorders of diaphragm | CPT/HCPCS: 99214 ==

== ENCOUNTER 2024-01-07 13:13 | Outpatient (CLI) | payer MEDICARE, MEDICAID, SELFPAY ==
--- NOTE | 2024-01-07 13:30 | CT_ITS ---
WS: [id number] CT chest wo con [id number] HISTORY: Follow-up CT 11/01/2023 TECHNIQUE: Axial imaging performed through the thorax. Coronal and sagittal reformats are submitted. All CT scans at [facility] use at least one of these dose optimization techniques: automated exposure control; mA and/or kV adjustment per patient size (includes targeted exams where dose is mat ched to clinical indication); or iterative reconstruction. CONTRAST: None DLP: 265.96 mGy.cm COMPARISON: 11/01/2023, 09/05/2023 Lungs and central airway: Severe pulmonary hyperexpansion with bullous emphysema. RIGHT upper lobe is markedly hyperexpanded causing decreased expansion of the RIGHT middle and RIGHT lower lobes. There is partial atelectasis of the RIGHT middle lobe with moderate improvement since 11/01/2023. Mild hazy a ttenuation persisting at the RIGHT lung base but overall slightly better aeration of the RIGHT lower lobe. No mass or pneumonia within the LEFT lung. Benign scattered granulomata. No mass or obstructing lesion noted in the bronchus intermedius. Pleura: Normal. No pleural effusion. Heart and pericardium: Normal size heart with no pericardial effusion. Mediastinum and solis: No mediastinum or hilar adenopathy. Vessels: Mild atherosclerosis aorta. Chest wall and lower neck: Gynecomastia. Upper abdomen: Small hiatal hernia. There are a few scattered hypodensities within the liver which we re noted to be cysts on prior studies. Partially visualized gallbladder is abnormal. Gallbladder wall appears thick with stones. Probably related to an chronic cholecystitis. No evidence for acute melchor cystitis. Hyperplasia and thickening of each adrenal gland. Osseous structures: No destructive process. CT/CT chest wo con [id number] IMPRESSION: 1. Chronic atelectasis medial segment RIGHT middle lobe but slightly improved since 11/01/2023. 2. Slightly improved but mild persistent atelectasis at the RIGHT lung base. 3. Severe bullous emphysema. 4. Marked hyperexpansion of the RIGHT upper lobe with changes suspicious for a ir trapping. Hyperexpansion resulting in decreased expansion of the RIGHT lower and RIGHT middle lobes. 5. No adenopathy identified on this unenhanced exam. 6. Bilateral adrenal thickening probably related to adenomas. No change since 06/10/2021. 7. Hepatic cysts. 8. Abnormal gallbladder as visualized. Similar to the study from 06/10/2021.
== END 2024-01-07 13:14 | disposition home or self-care (01) ==
LOC: RAD 13:13
PROVIDERS: PCP Family Medicine; Visit Provider Internal Medicine Pulmonary Disease
DX: R93.89 Abnormal findings on diagnostic imaging of other specified body structures (principal); J98.11 Atelectasis; J43.8 Other emphysema; K76.89 Other specified diseases of liver
CPT/HCPCS: 71250

== ENCOUNTER → 2024-01-11 08:37 | Outpatient (BNVA) | payer MEDICARE, MEDICAID, SELFPAY | PROVIDERS: PCP Family Medicine; Visit Provider Internal Medicine Pulmonary Disease | DX: J44.9 Chronic obstructive pulmonary disease, unspecified (principal); Z78.9 Other specified health status; Z12.2 Encounter for screening for malignant neoplasm of respiratory organs; Z87.891 Personal history of nicotine dependence; J96.12 Chronic respiratory failure with hypercapnia; J98.6 Disorders of diaphragm | CPT/HCPCS: 99214 ==

== ENCOUNTER → 2024-02-26 12:11 | Outpatient (BNVA) | payer MEDICARE, MEDICAID, SELFPAY | PROVIDERS: PCP Family Medicine; Visit Provider Internal Medicine Cardiovascular Disease | DX: R06.02 Shortness of breath (principal) | CPT/HCPCS: 80048; 83880; 99214 ==

== ENCOUNTER 2024-03-12 13:30 | Outpatient (CLI) | payer MEDICARE, MEDICAID, SELFPAY ==
--- NOTE | 2024-03-12 13:30 | USCV_ITS ---
Axel Duran Age: 63 Gender: M : 1960 Exam Date: 03/12/2024 13:41 Ordering Phys: Christine Novak MD ([email or web address]) Technologist: [place] [facility] [place]: lv function BP: 125 / 70 HR: 65 Rhythm: Sinus Technical Quality: Adequate MEASUREMENTS (Male / Female) Normal Values 2D ECHO LV Diastolic Diameter PLAX 4.9 cm 4.2 - 5.9 / 3.9 - 5.3 cm IVS Diastolic Thickness 1.1 cm 0.6 - 1.0 / 0.6 - 0.9 cm IVS Systolic Thickness 1.4 cm LVPW Diastolic Thickness 1.1 cm 0.6 - 1.0 / 0.6 - 0.9 cm LVPW Systolic Thickness 1.7 cm LVOT Diameter 2.0 cm LV Ejection Fraction 2D Teich 60.0 % LV Ejection Fraction MOD 4C 53.8 % LV Ejection Fraction MOD 2C 63.7 % LV Ejection Fraction 2C AL 62.5 % LA Diameter 2.6 cm RA Systolic Volume 4C AL 51.3 ml RA Systolic Volume 4C MOD 46.5 ml Aorta at Sinotubular Diameter 2.0 cm IVC Diameter 2.0 cm M-MODE LA Ao Ratio MM 1.3 AV Cusp Separation MM 1.7 cm DOPPLER AV Peak Velocity 127.0 cm/s LVOT Peak Velocity 72.0 cm/s AV Area Cont Eq vti 1.9 cm squared AV Area Cont Eq pk 1.8 cm squared MV Peak Velocity 80.0 cm/s TR Peak Velocity 180.0 cm/s TR Peak Gradient 13.0 mmHg TV Peak E Velocity 54.0 cm/s Right Atrial Pressure 3.0 mmHg Pulmonary Artery Systolic Pressu 16.0 mmHg PV Peak Velocity 82.0 cm/s FINDINGS Left Ventricle Normal left ventricular size with borderline LV ejection fraction 50 to 55%. Relative hypokinesis of the inferolateral wall segment. Right Ventricle Normal LV size ejection fraction Right Atrium The right atrium is normal in size. Left Atrium The left atrium is normal in size. Mitral Valve Mild mitral valve regurgitation. Aortic Valve No gross valvular abnormalities Tricuspid Valve No gross valvular abnormalities Pulmonic Valve Pulmonic valve not well visualized. Pericardium Normal pericardium without effusion. Aorta Normal ascending aorta dimension. IVC Normal inferior vena cava. CONCLUSIONS Normal left ventricular size with borderline LV ejection fraction 50 to 55%. Wall motion abnormality as mentioned above Mild mitral valve regurgitation. Normal cardiac chamber sizes. There is no pericardial effusion. There are no intracardiac masses. Compared to the study from 11/01/2023, there is significant improvement of the LV ejection fraction. Dr Christine Novak MD [facility] (Electronically Signed) Final Date: 18 March 2024 09:39 S
== END 2024-03-12 13:31 | disposition home or self-care (01) ==
PROVIDERS: PCP Family Medicine; Visit Provider Internal Medicine Cardiovascular Disease
DX: R06.09 Other forms of dyspnea (principal); I34.0 Nonrheumatic mitral (valve) insufficiency
CPT/HCPCS: 93306

== ENCOUNTER → 2024-04-21 14:00 | Outpatient (BNVA) | payer MEDICARE, MEDICAID, SELFPAY | PROVIDERS: PCP Family Medicine; Visit Provider Internal Medicine Critical Care Medicine | DX: J96.11 Chronic respiratory failure with hypoxia (principal); J96.12 Chronic respiratory failure with hypercapnia; J44.9 Chronic obstructive pulmonary disease, unspecified; J98.6 Disorders of diaphragm; I51.81 Takotsubo syndrome; R93.89 Abnormal findings on diagnostic imaging of other specified body structures; R29.898 Other symptoms and signs involving the musculoskeletal system; Z71.89 Other specified counseling; Z71.6 Tobacco abuse counseling | CPT/HCPCS: 99215 ==

== ENCOUNTER → 2024-06-02 11:19 | Outpatient (BNVA) | payer MEDICARE, MEDICAID, SELFPAY | PROVIDERS: PCP Family Medicine; Visit Provider Internal Medicine Cardiovascular Disease | DX: I42.9 Cardiomyopathy, unspecified (principal); J96.12 Chronic respiratory failure with hypercapnia; Z87.891 Personal history of nicotine dependence | CPT/HCPCS: 99214 ==

== ENCOUNTER → 2024-06-09 11:27 | Outpatient (BNVA) | payer MEDICARE, MEDICAID, SELFPAY | PROVIDERS: PCP Family Medicine; Visit Provider Family Medicine | DX: I42.9 Cardiomyopathy, unspecified (principal); R06.09 Other forms of dyspnea; J44.9 Chronic obstructive pulmonary disease, unspecified; R79.89 Other specified abnormal findings of blood chemistry | CPT/HCPCS: 80053; 80061; 85025 ==

== ENCOUNTER → 2024-11-21 09:40 | Outpatient (BNVA) | payer MEDICARE, MEDICAID, SELFPAY | PROVIDERS: PCP Family Medicine; Visit Provider Family Medicine | DX: F41.9 Anxiety disorder, unspecified (principal); I42.9 Cardiomyopathy, unspecified; J44.9 Chronic obstructive pulmonary disease, unspecified; J96.11 Chronic respiratory failure with hypoxia; J96.12 Chronic respiratory failure with hypercapnia; I42.0 Dilated cardiomyopathy | CPT/HCPCS: 80053; 80061; 85025 ==

== ENCOUNTER 2025-04-07 15:01 | Outpatient (CLI) | payer MEDICARE, MEDICAID, SELFPAY ==
--- NOTE | 2025-04-07 15:15 | CTR_ITS ---
PROCEDURE INFORMATION: Exam: CT Chest Without Contrast; Diagnostic Exam date and time: 04/07/2025 3:16 PM Age: 64 years old Clinical indication: Shortness of breath; HX of brain and bladder cancer TECHNIQUE: Imaging protocol: Diagnostic computed tomography of the chest without contrast. Radiation optimization: All CT scans at this facility use at least one of these dose optimization techniques: automated exposure control; mA and/or kV adjustment per patient size (includes targeted exams where dose is matched to clinical indication); or iterative reconstruction. COMPARISON: CT chest wo con [id number] 01/07/2024 1:19 PM RADIATION DOSE METRICS: Total DLP (mGy-cm): 354.64 FINDINGS: Lungs: Severe upper lobe predominant centrilobular pulmonary emphysema. Bibasilar scarring. No new pulmonary opacity. Pleural spaces: Unremarkable. No pneumothorax. No pleural effusion. Heart: Unremarkable. No cardiomegaly. No pericardial effusion. Coronary arteries: Coronary artery calcifications are present. Lymph nodes: Unremarkable. No enlarged lymph nodes. Vasculature: Aortic atherosclerotic disease is seen without evidence of aneurysm. Gallbladder and biliary ducts: Multiple gallstones are present in an otherwise normal-appearing gallbladder. No evidence of biliary obstruction. Adrenal glands: Small bilateral adrenal adenomas measuring up to 1.4 cm on the right. Bones/joints: Unremarkable. No acute fracture. Soft tissues: Unremarkable. CT/CT chest wo con [id number] IMPRESSION: 1. Severe upper lobe predominant centrilobular pulmonary emphysema. 2. No evidence of acute intrathoracic process. 3. Cholecystolithiasis without evidence of cholecystitis or biliary obstruction. COMMENTS: 1. The presence of pulmonary emphysema on CT is an independent risk factor for lung cancer. In the absence of a history or active diagnosis of lung cancer, it is recommended that this patient with emphysema be evaluated for enrollment in a low dose CT lung cancer screening program. 2. Consistent with the [employer]'s Incidental Findings Committee white paper (J Am Kiersten Radiol 2017): For any incidental adrenal lesion greater than or equal to 1 cm but less than or equal to 4 cm classified in this report as benign, likely benign, or containing fat (including classification as an adenoma or myelolipoma), no follow-up imaging is recommended per consensus recommendations based on imaging criteria. Further lab evaluation could be pursued if warranted based on clinical findings.
== END 2025-04-07 15:02 | disposition home or self-care (01) ==
LOC: RAD 15:04
PROVIDERS: PCP Family Medicine; Visit Provider Internal Medicine
DX: R93.89 Abnormal findings on diagnostic imaging of other specified body structures (principal); J96.12 Chronic respiratory failure with hypercapnia; J43.2 Centrilobular emphysema; K80.20 Calculus of gallbladder without cholecystitis without obstruction; I25.84 Coronary atherosclerosis due to calcified coronary lesion; I70.0 Atherosclerosis of aorta; N20.0 Calculus of kidney; Z85.841 Personal history of malignant neoplasm of brain; Z85.51 Personal history of malignant neoplasm of bladder
CPT/HCPCS: 71250

== ENCOUNTER → 2025-05-04 15:13 | Outpatient (BNVA) | payer MEDICARE, MEDICAID, SELFPAY | PROVIDERS: PCP Family Medicine; Visit Provider Internal Medicine | DX: J44.9 Chronic obstructive pulmonary disease, unspecified (principal); J96.12 Chronic respiratory failure with hypercapnia; J98.6 Disorders of diaphragm; Z87.891 Personal history of nicotine dependence | CPT/HCPCS: 99214 ==

== ENCOUNTER 2025-05-20 12:42 | Outpatient (CLI) | payer MEDICARE, MEDICAID, SELFPAY ==
[2025-05-20 12:51] VITALS: O2SAT 84; O2SAT 90; O2SAT 93
[2025-05-20 13:09] VITALS: PULSE 78; RESP 22; O2SAT 94
== END 2025-05-20 12:43 | disposition home or self-care (01) ==
PROVIDERS: PCP Family Medicine; Visit Provider Internal Medicine
DX: J44.89 Other specified chronic obstructive pulmonary disease (principal)
CPT/HCPCS: 94060; 94618; 94726; 94729; 94760; J7613

== ENCOUNTER → 2025-06-01 11:27 | Outpatient (BNVA) | payer MEDICARE, SELFPAY | PROVIDERS: PCP Family Medicine; Visit Provider Internal Medicine Cardiovascular Disease | DX: I50.20 Unspecified systolic (congestive) heart failure (principal); R07.9 Chest pain, unspecified; J96.12 Chronic respiratory failure with hypercapnia; Z87.891 Personal history of nicotine dependence | CPT/HCPCS: 93005; 99214 ==

== ENCOUNTER → 2025-07-30 12:47 | Outpatient (BNVA) | payer MEDICARE, SELFPAY | PROVIDERS: PCP Family Medicine; Visit Provider Internal Medicine | DX: J44.89 Other specified chronic obstructive pulmonary disease (principal); J96.22 Acute and chronic respiratory failure with hypercapnia; J96.21 Acute and chronic respiratory failure with hypoxia; Z99.81 Dependence on supplemental oxygen; J98.6 Disorders of diaphragm; Z79.52 Long term (current) use of systemic steroids; Z87.891 Personal history of nicotine dependence | CPT/HCPCS: 99214; Q3014 ==

== ENCOUNTER → 2025-08-18 10:49 | Outpatient (BNVA) | payer MEDICARE, SELFPAY | PROVIDERS: PCP Family Medicine; Visit Provider Family Medicine | DX: E03.9 Hypothyroidism, unspecified (principal); F41.9 Anxiety disorder, unspecified; I42.9 Cardiomyopathy, unspecified; R06.09 Other forms of dyspnea; J44.9 Chronic obstructive pulmonary disease, unspecified; J96.12 Chronic respiratory failure with hypercapnia | CPT/HCPCS: 80053; 82306; 84443; 85025 ==